=== PATIENT | female | born 1960 | race African-American/Black ===

== ENCOUNTER 2016-11-13 21:14 | Emergency (ER) | payer OTHER ==
[~2016-11-13] VITALS: Ht 160 cm; Wt 90.7 kg
[~2016-11-13 21:14] MED LIST: DEXT30SU19 PO; PRED50TA PO
[2016-11-13 21:46] VITALS: BP 150/80
[2016-11-13] MEDS ORDERED: AMOX500C PO (22:19)
--- NOTE | 2016-11-13 22:19 | PHYS DOC ---
Past Medical History Past Medical History: Arthritis, Asthma, Hypertension Additional Past Medical Histor: bronchitis, pneumonia, tendonitis Past Surgical History: Other Additional Past Surgical Histo: L shoulder surgery Alcohol Use: None Drug Use: None Adult General Chief Complaint Chief Complaint: DENTAL PROBLEM HPI HPI Patient is a 55 year old female presents to the emergency department stating that she's had a 1 day history of left lower dental pain and discomfort. She states that she has been taken hydrocodone 7.5 for her back although this has not helped with the pain and discomfort. She states that she has placed Orajel on the dental pain and discomfort area in which she states that she developed swelling. She has had a low-grade here in the emergency department of 100.1. Patient's heart rate is slightly elevated secondary to elevated temperature. Patient denies any nausea vomiting. She states that she does not have a dentist in which she can follow-up with. Review of Systems Review of Systems Constitutional: Denies fever or chills [] Eyes: Denies change in visual acuity, redness, or eye pain [] HENT: Denies nasal congestion or sore throat. Complaint of left lower dental pain Respiratory: Denies cough or shortness of breath [] Cardiovascular: No additional information not addressed in HPI [] GI: Denies abdominal pain, nausea, vomiting, bloody stools or diarrhea [] : Denies dysuria or hematuria [] Musculoskeletal: Denies back pain or joint pain [] Integument: Denies rash or skin lesions [] Neurologic: Denies headache, focal weakness or sensory changes [] Endocrine: Denies polyuria or polydipsia [] Current Medications Current Medications Current Medications Medications (Trade) Dose Ordered Sig/Rob Start Time Stop Time Status Last Admin Dose Admin Ibuprofen (Motrin) 800 mg 1X ONCE 11/13/16 22:30 11/13/16 22:31 DC 11/13/16 22:15 800 MG Allergies Allergies Allergies Coded Allergies Type Severity Reaction Last Updated Verified cinnamon Allergy Intermediate 07/24/15 Yes shellfish derived Allergy Intermediate 07/24/15 Yes Physical Exam Physical Exam Constitutional: Well developed, well nourished, no acute distress, non-toxic appearance. [] HENT: Normocephalic, atraumatic, bilateral external ears normal, oropharynx moist, no oral exudates, nose normal. Tympanic membranes appear to be normal. Throat appears to be without redness or erythematous no exudate noted. Patient appears to have a fractured tooth that is broken off down to the gumline and # 21. The tooth appears to be very edematous and tender to touch. Patient does have swelling noted into the jawline. Eyes: PERRLA, EOMI, conjunctiva normal, no discharge. [] Neck: Normal range of motion, no tenderness, supple, no stridor. [] Cardiovascular:Heart rate regular rhythm, no murmur [] Lungs & Thorax: Bilateral breath sounds clear to auscultation [] Skin: Warm, dry, no erythema, no rash. [] Back: No tenderness Extremities: No tenderness, no cyanosis, no clubbing, ROM intact, no edema. [] Neurologic: Alert and oriented X 3, normal motor function, normal sensory function, no focal deficits noted. [] Psychologic: Affect normal, judgement normal, mood normal. [] Current Patient Data Vital Signs Vital Signs Date Time Temp Pulse Resp B/P (MAP) Pulse Ox O2 Delivery O2 Flow Rate FiO2 11/13/16 21:46 100.1 132 18 98 Room Air 100.1 EKG EKG [] Radiology/Procedures Radiology/Procedures [] Course & Med Decision Making Course & Med Decision Making Pertinent Labs and Imaging studies reviewed. (See chart for details) Patient was provided with ibuprofen here in the emergency department. Spoke with patient regards to using ibuprofen every 6 hours alternating with her hydrocodone as this has Tylenol in it and it is not advisable to take any extra Tylenol with this medication. Patient was also instructed to use amoxicillin which is an antibiotic to help with pain control and to help with the infection. Patient was also encouraged to follow-up with a dentist she'll be provided with a dental list here in the emergency department. Patient agrees with discharge instructions treatment regimens and follow-up recommendations. Also recommended patient to stop smoking as this is distracted to the teeth as well. Also recommended continue to brush and floss the teeth as normal. Patient will be discharged home with signs and symptoms to return back to the emergency department. Patient agrees with discharge instructions treatment regimens and follow-up recommendations. Patients heart remains 129 after reviewing previous ER records patients HR was noted in the uppers 120's patient will be discharged home in stable condition. [] Dragon Disclaimer Dragon Disclaimer This electronic medical record was generated, in whole or in part, using a voice recognition dictation system. Departure Departure Impression: Primary Impression: Dental infection Disposition: 01 HOME, SELF-CARE Condition: STABLE Referrals: UNKNOWN PCP NAME (PCP) Patient Instructions: Dental Abscess Additional Instructions: Activity as tolerated. Continue to use her hydrocodone that you have for pain and discomfort. Do not take any extra Tylenol with this medication. Ibuprofen may be taken for pain and discomfort as well as fever. You may take this medication every 6 hours as needed. You may take up to 800 mg. Take this medication with food to prevent GI upset. Antibiotics as prescribed please make sure you take the entire dosage as instructed to not stop when she started feeling better. Follow-up with the dentist within the next week. Return back to emergency department for signs and symptoms of become worse. Scripts Amoxicillin (AMOXICILLIN) 500 Mg Capsule 1 CAP PO QID, #40 CAP Prov: DOLORES MANN APRN 11/13/16 DOLORES MANN APRN Nov 13, 2016 22:19
[2016-11-13] MEDS ORDERED: IBUPROFEN 800 MG TABLET. PO ONE (22:30)
== END 2016-11-13 22:35 | disposition home or self-care (01) ==
LOC: ER 21:14
DX: K04.7 Periapical abscess without sinus (principal); J45.909 Unspecified asthma, uncomplicated; I10 Essential (primary) hypertension; Z91.013 Allergy to seafood; Z91.018 Allergy to other foods
CPT/HCPCS: 99282; 99283

== ENCOUNTER 2016-11-28 21:35 | Emergency (ER) | payer OTHER ==
[~2016-11-28 21:35] MED LIST changes: +AMOX500C PO
[2016-11-28 22:50] VITALS: BP 145/90
[2016-11-28] MEDS ORDERED: HYDROcodone/APAP 5/325MG 1 TAB TABLET PO ONE (23:45)
[2016-11-28] MEDS ORDERED: CLIN150C14 PO (23:52)
[2016-11-28] MEDS ORDERED: HYDR-971 PO (23:52)
--- NOTE | 2016-11-28 23:53 | PHYS DOC ---
Past Medical History Past Medical History: Arthritis, Asthma, Hypertension Additional Past Medical Histor: bronchitis, pneumonia, tendonitis Past Surgical History: Other Additional Past Surgical Histo: L shoulder surgery Alcohol Use: None Drug Use: None Adult General Chief Complaint Chief Complaint: DENTAL PROBLEM HPI HPI Patient is a 56 year old female who presents with dental pain. Complains of left mandibular dental pain. Reports facial swelling. Denies fevers/chills, vomiting, drainage. She does not have a dentist. Review of Systems Review of Systems Constitutional: Denies fever or chills HENT:Reports dental pain Respiratory: Denies cough or shortness of breath Cardiovascular: Denies chest pain GI: Denies abdominal pain, nausea, vomiting Neurologic: Denies headache Current Medications Current Medications Current Medications Medications (Trade) Dose Ordered Sig/Rob Start Time Stop Time Status Last Admin Dose Admin Acetaminophen/ Hydrocodone Bitart (Lortab 5/325) 2 tab 1X ONCE 11/28/16 23:45 11/28/16 23:46 DC 11/29/16 00:18 2 TAB Allergies Allergies Allergies Coded Allergies Type Severity Reaction Last Updated Verified cinnamon Allergy Intermediate 07/24/15 Yes shellfish derived Allergy Intermediate 07/24/15 Yes Physical Exam Physical Exam Constitutional: Well developed, well nourished, no acute distress, non-toxic appearance. HENT: Normocephalic, atraumatic, bilateral external ears normal, oropharynx moist, nose normal. left mandibular swelling without trismus. poor dentition throughout, multiple caries, left mandibular premolars cracked with surrounding gingival erythema, no palpable abscess. Eyes: conjunctiva normal, no discharge. Neck: supple, no stridor. Cardiovascular: no edema. Lungs & Thorax: no respiratory distress. Abdomen: nondistended. Skin: Warm, dry, no erythema, no rash. Extremities: No deformity Neurologic: Alert and oriented X 3 Current Patient Data Vital Signs Vital Signs Date Time Temp Pulse Resp B/P (MAP) Pulse Ox O2 Delivery O2 Flow Rate FiO2 11/29/16 00:18 Room Air 11/28/16 22:50 98.6 117 16 98 98.6 EKG EKG [] Radiology/Procedures Radiology/Procedures [] Course & Med Decision Making Course & Med Decision Making Pertinent Labs and Imaging studies reviewed. (See chart for details) The patient presents with dental pain. Recommend rest, ice, ibuprofen TID, gave prescriptions for clindamycin & norco. No drinking alcohol or driving while taking norco. Follow up CANDIDO with a dentist for definitive management, given dental clinic list. Come back for difficulty breathing or swallowing, or otherwise worsening condition. Discharged home in stable condition. [] Dragon Disclaimer Dragon Disclaimer This electronic medical record was generated, in whole or in part, using a voice recognition dictation system. Departure Departure Impression: Primary Impression: Dental infection Disposition: HOME, SELF-CARE Condition: STABLE Referrals: UNKNOWN PCP NAME (PCP) Scripts Clindamycin Hcl (CLINDAMYCIN HCL) 150 Mg Capsule 3 CAP PO TID for 7 Days, #63 CAP Prov: ABDIRAHMAN PANDYA MD 11/28/16 Hydrocodone/Apap 5-325 (NORCO 5-325 TABLET) 1 Each Tablet 1 TAB PO PRN Q6HRS Y for PAIN, #10 TAB 0 Refills Prov: ABDIRAHMAN PANDYA MD 11/28/16 ABDIRAHMAN PANDYA MD Nov 28, 2016 23:52
== END 2016-11-29 00:18 | disposition home or self-care (01) ==
LOC: ER 21:35
DX: K04.7 Periapical abscess without sinus (principal); J45.909 Unspecified asthma, uncomplicated; I10 Essential (primary) hypertension; M19.90 Unspecified osteoarthritis, unspecified site; Z91.013 Allergy to seafood; Z91.018 Allergy to other foods
CPT/HCPCS: 99283

== ENCOUNTER 2016-12-19 11:17 | Emergency (ER) | payer OTHER ==
[~2016-12-19] VITALS: Ht 160 cm; Wt 86.2 kg
[~2016-12-19 11:17] MED LIST changes: +CLIN150C14 PO; +HYDR-971 PO
[2016-12-19 11:20] VITALS: BP 178/96
[2016-12-19] MEDS ORDERED: BACITRACIN TOPICAL OINT 14GM TUBE. TP ONE (11:30)
[2016-12-19] MEDS ORDERED: IBUPROFEN 800 MG TABLET. PO ONE (11:45)
[2016-12-19] MEDS ORDERED: DIPHTH,PERTUSS(ACELL),TET TOX 0.5 ML DISP.SYRIN. VAX IM ONE (11:45)
[2016-12-19] MEDS ORDERED: HYDR-971 PO (12:06)
[2016-12-19] MEDS ORDERED: PROAIR HFA8.5 GM INH (12:06)
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
[2016-12-19] MEDS ORDERED: ALBU1.25 NEB (12:43)
[2016-12-19] MEDS ORDERED: BACI28.34 TP (12:43)
== END 2016-12-19 12:47 | disposition home or self-care (01) ==
LOC: ER 11:17
DX: T21.21XA Burn of second degree of chest wall, initial encounter (principal); T22.10XA Burn of first degree of shoulder and upper limb, except wrist and hand, unspecified site, initial encounter; T31.0 Burns involving less than 10% of body surface; M19.90 Unspecified osteoarthritis, unspecified site; J45.909 Unspecified asthma, uncomplicated; I10 Essential (primary) hypertension; Z87.01 Personal history of pneumonia (recurrent); Z91.013 Allergy to seafood; Z91.018 Allergy to other foods; X12.XXXA Contact with other hot fluids, initial encounter; Y93.89 Activity, other specified; Y92.009 Unspecified place in unspecified non-institutional (private) residence as the place of occurrence of the external cause; Y99.8 Other external cause status
CPT/HCPCS: 16020; 90471; 90715; 99285-25

== ENCOUNTER 2017-01-22 18:52 | Emergency (ER) | payer OTHER ==
[~2017-01-22] VITALS: Ht 160 cm; Wt 86.2 kg
[~2017-01-22 18:52] MED LIST changes: +ALBU1.25 NEB; +BACI28.34 TP; +PROAIR HFA8.5 GM INH
[2017-01-22 19:47] VITALS: BP 181/95
[2017-01-22] MEDS ORDERED: IPRATRPIUM/ALBUTEROL 0.5/2.5MG 3 ML NEBU. NEB ONE (20:00)
[2017-01-22] MEDS ORDERED: PENICILLIN V K 250 MG TABLET. PO STA (20:06)
[2017-01-22] MEDS ORDERED: HYDROcodone/APAP 5/325MG 1 TAB TABLET PO ONE (20:15)
--- NOTE | 2017-01-22 21:11 | PHYS DOC ---
Past Medical History Past Medical History: Arthritis, Asthma, Bronchitis, COPD, Hypertension, Pneumonia Additional Past Medical Histor: tendonitis Past Surgical History: Other Additional Past Surgical Histo: L shoulder surgery Alcohol Use: None Drug Use: None Adult General Chief Complaint Chief Complaint: DENTAL PROBLEM HPI HPI Patient is a 56 year old female who presents with complaint of left-sided jaw pain and swelling. Patient states that she has had worsening symptoms over the past 2-3 days. Patient states that she has had history of dental caries and previous dental abscess. Patient has had 2 teeth removed from the left side of her jaw on states that she has an additional tooth that has been causing her problems. Patient has had subjective fevers at home. Patient also states that she has history of COPD and states that her symptoms have been worsening over the past 2 days. Patient states that she took a breathing treatment before work today but has had no breathing treatments over the past 4-6 hours. Patient states that her primary concern is her tooth. Patient rates her pain as 7 out of 10. Patient states that her pain worsens with movement. Patient states that she has another appointment this month with her dentist but states that it is an approximately one week and she is unable to wait that long. Review of Systems Review of Systems Constitutional: Denies fever or chills [] Eyes: Denies change in visual acuity, redness, or eye pain [] HENT: Dental pain, denies nasal congestion or sore throat [] Respiratory: Cough, shortness of breath[] Cardiovascular: Denies chest pain or edema[] GI: Denies abdominal pain, nausea, vomiting, bloody stools or diarrhea [] : Denies dysuria or hematuria [] Musculoskeletal: Denies back pain or joint pain [] Integument: Denies rash or skin lesions [] Neurologic: Denies headache, focal weakness or sensory changes [] Current Medications Current Medications Current Medications Medications (Trade) Dose Ordered Sig/Rob Start Time Stop Time Status Last Admin Dose Admin Acetaminophen/ Hydrocodone Bitart (Lortab 5/325) 1 tab 1X ONCE 01/22/17 20:15 01/22/17 20:16 DC 01/22/17 20:50 1 TAB Albuterol/ Ipratropium (Duoneb) 3 ml 1X ONCE 01/22/17 20:00 01/22/17 20:01 DC 01/22/17 20:25 3 ML Clindamycin HCl (Cleocin) 450 mg 1X ONCE 01/22/17 21:15 01/22/17 21:16 DC 01/22/17 21:06 450 MG Penicillin V Potassium (Veetid) 500 mg 1X STAT 01/22/17 20:06 01/22/17 20:55 DC Allergies Allergies Allergies Coded Allergies Type Severity Reaction Last Updated Verified cinnamon Allergy Intermediate 07/24/15 Yes shellfish derived Allergy Intermediate 07/24/15 Yes Penicillins Adverse Reaction Severe Swelling 01/22/17 Yes Physical Exam Physical Exam Constitutional: Alert, afebrile, appears in mild to moderate discomfort. [] HENT: Normocephalic, atraumatic, bilateral external ears normal, oropharynx moist, mild soft tissue swelling along left mandible, tenderness to palpation over tooth #18, no gingival fluctuance, no oral exudates, nose normal. [] Eyes: PERRLA, EOMI, conjunctiva normal, no discharge. [] Neck: Normal range of motion, no tenderness, supple, no stridor. [] Cardiovascular:Heart rate regular rhythm, no murmur [] Lungs & Thorax: Mild to moderate shortness of air movement bilaterally, expiratory wheezes bilaterally, no rales[] Abdomen: Bowel sounds normal, soft, no tenderness, no masses, no pulsatile masses. [] Skin: Warm, dry, no erythema, no rash. [] Back: No tenderness, no CVA tenderness. [] Extremities: No tenderness, no cyanosis, no clubbing, ROM intact, no edema. [] Neurologic: Alert and oriented X 3, normal motor function, normal sensory function, no focal deficits noted. [] Current Patient Data Vital Signs Vital Signs Date Time Temp Pulse Resp B/P (MAP) Pulse Ox O2 Delivery O2 Flow Rate FiO2 01/22/17 20:50 28 98 01/22/17 20:28 Room Air 01/22/17 19:47 96 181/95 (123) 01/22/17 19:45 98.2 98.2 EKG EKG Interpreted by me: Heart rate 94, sinus rhythm, normal intervals, normal axis, no acute ST/T-wave abnormalities present[] Radiology/Procedures Radiology/Procedures Not performed[] Course & Med Decision Making Course & Med Decision Making Pertinent Labs and Imaging studies reviewed. (See chart for details) Patient was given a DuoNeb treatment for asthma symptoms and was also given clindamycin and [place] in the emergency department for treatment of suspected apical abscess. On reevaluation, patient states that she feels much better at this time. Patient was noted to have elevated blood pressure in the emergency department of 180 systolic. The patient states that she had been taking half dosing of her blood pressure medication at home but did take a full dose earlier today. The patient denies any vision changes, headache, chest pain, or other symptoms associated with elevated blood pressure. The patient states that she will continue to take full dosing at home. The patient agreed to follow-up with her primary doctor in 2 days for reevaluation. Patient also states she has an appointment with a dentist on January 31 of this month. Patient will be sent home with prescriptions for Medrol Dosepak, clindamycin, [place], and albuterol. Advised return emergency department for any worsening symptoms. Patient was understanding and in agreement with treatment plan. Dragon Disclaimer Dragon Disclaimer This electronic medical record was generated, in whole or in part, using a voice recognition dictation system. Departure Departure Impression: Primary Impression: Dental infection Additional Impressions: Accelerated hypertension Asthma exacerbation Disposition: HOME, SELF-CARE Condition: IMPROVED Referrals: UNKNOWN PCP NAME (PCP) Patient Instructions: Asthma, Adult, Dental Pain, Hypertension Additional Instructions: Follow-up with your primary doctor in the next 2-3 days for reevaluation. Follow -up on January 31, 2017 with your dentist as previously scheduled. Return to emergency department for any worsening symptoms. Scripts Albuterol Sulfate (VENTOLIN HFA INHALER) 18 Gm Hfa.aer.ad 2-4 PUFF INH Q4HRS Y for WHEEZING, #1 INHALER 0 Refills Prov: PETAR CEBALLOS MD 01/22/17 Clindamycin Hcl (CLINDAMYCIN HCL) 150 Mg Capsule 3 CAP PO TID, #90 CAP Prov: PETAR CEBALLOS MD 01/22/17 Hydrocodone/Apap 5-325 (NORCO 5-325 TABLET) 1 Each Tablet 1-2 TAB PO Q4-6HRS Y for PAIN, #20 TAB Prov: PETAR CEBALLOS MD 01/22/17 Methylprednisolone (MEDROL) 4 Mg Tab.ds.pk 1 PKG PO UD, #1 PKG Prov: PETAR CEBALLOS MD 9/16/17 Problem Qualifiers PETAR CEBALLOS MD Jan 22, 2017 21:11
[2017-01-22] MEDS ORDERED: CLINDAMYCIN HCL 150 MG CAPSULE. PO ONE (21:15)
[2017-01-22] MEDS ORDERED: HYDR-971 PO (21:57)
[2017-01-22] MEDS ORDERED: METH4TAB2 PO (21:57)
[2017-01-22] MEDS ORDERED: CLIN150C14 PO (21:57)
[2017-01-22] MEDS ORDERED: VENTOLIN HFA18 GM INH (21:57)
--- NOTE | 2017-01-23 07:16 | EKG ---
[facility] [address] [place] [address] Test Date: 2017-01-22 Test Time: 19:48:24 Pat Name: ROSA ADAME Department: Room: Gender: F It Associate: : 1960 Requested By: PETAR CEBALLOS Order Number: [id number] Reading MD: Salvador Charles Measurements Intervals [place] Rate: 94 P: 51 SD: 154 QRS: -3 QRSD: 72 T: 62 QT: 346 QTc: 438 Interpretive Statements SINUS RHYTHM Electronically Signed On 01-24-2017 13:15:32 CDT by Salvador Charles
[2017-01-23] MEDS ORDERED: ONDA4TAB10 SL (23:18)
== END 2017-01-22 22:08 | disposition home or self-care (01) ==
LOC: ER 18:52
DX: K04.7 Periapical abscess without sinus (principal); I10 Essential (primary) hypertension; J45.901 Unspecified asthma with (acute) exacerbation; J44.9 Chronic obstructive pulmonary disease, unspecified; M19.90 Unspecified osteoarthritis, unspecified site; Z91.013 Allergy to seafood; Z91.018 Allergy to other foods; Z88.0 Allergy status to penicillin
CPT/HCPCS: 93005; 94250; 94640; 99283; J7620

== ENCOUNTER 2017-01-23 22:56 | Emergency (ER) | payer OTHER ==
[~2017-01-23] VITALS: Ht 157.5 cm; Wt 86.2 kg
[~2017-01-23 22:56] MED LIST changes: +METH4TAB2 PO; +VENTOLIN HFA18 GM INH
[2017-01-23 23:14] VITALS: BP 165/103
[2017-01-23] MEDS ORDERED: ONDA4TAB10 SL (23:18)
--- NOTE | 2017-01-23 23:18 | PHYS DOC ---
Past Medical History Past Medical History: Arthritis, Asthma, Bronchitis, COPD, Hypertension, Pneumonia Additional Past Medical Histor: tendonitis Past Surgical History: Other Additional Past Surgical Histo: L shoulder surgery Alcohol Use: None Drug Use: None Adult General Chief Complaint Chief Complaint: NAUSEA/VOMITING/DIARRHA HPI HPI Patient is a 56 year old female who presents with nausea and vomiting after taking her antibiotic. She was just here on Tuesday which she was treated for a left dental abscess. She was given clindamycin and a Medrol Dosepak. The infection has improved dramatically per the patient. She's had markedly reduced swelling on the left side of her face. She is able swallow well. No drooling. No fever. Review of Systems Review of Systems Constitutional: Denies fever or chills Eyes: Denies change in visual acuity, redness, or eye pain HENT: Denies nasal congestion or sore throat; improvement in facial swelling and dental pain. GI: Denies abdominal pain, POS nausea, vomiting, NO bloody stools or diarrhea Current Medications Current Medications Current Medications Medications (Trade) Dose Ordered Sig/Rob Start Time Stop Time Status Last Admin Dose Admin Ceftriaxone Sodium (Rocephin Im) 1 gm 1X ONCE 01/23/17 23:45 01/23/17 23:46 DC 01/23/17 23:39 1 GM Ondansetron HCl (Zofran Odt) 4 mg 1X ONCE 01/23/17 23:45 01/23/17 23:46 DC 01/23/17 23:39 4 MG Allergies Allergies Allergies Coded Allergies Type Severity Reaction Last Updated Verified cinnamon Allergy Intermediate 07/24/15 Yes shellfish derived Allergy Intermediate 07/24/15 Yes Penicillins Adverse Reaction Severe Swelling 01/22/17 Yes Physical Exam Physical Exam Constitutional: Well developed, well nourished, no acute distress, non-toxic appearance. HENT: Normocephalic, atraumatic, bilateral external ears normal, oropharynx moist, no oral exudates, nose normal. Minimal left buccal swelling; no abscess palpable. Eyes: PERRLA, EOMI, conjunctiva normal, no discharge. Neck: Normal range of motion, no tenderness, supple, no stridor. Cardiovascular:Heart rate regular rhythm, no murmur Lungs & Thorax: Bilateral breath sounds clear to auscultation Abdomen: Bowel sounds normal, soft, no tenderness, no masses, no pulsatile masses. Skin: Warm, dry, no erythema, no rash. Neurologic: Alert and oriented X 3, normal motor function, normal sensory function, no focal deficits noted. Current Patient Data Vital Signs Vital Signs Date Time Temp Pulse Resp B/P (MAP) Pulse Ox O2 Delivery O2 Flow Rate FiO2 01/23/17 23:14 98.1 110 18 165/103 (123) 97 Room Air 98.1 Lab Values Laboratory Tests Test 01/23/17 23:08 POC Urine HCG, Qualitative Hcg negative (Negative) Course & Med Decision Making Course & Med Decision Making Patient is improving on a clindamycin so I do not wish to stop that. Gave her Zofran here and and IM Rocephin. If she has persistent vomiting I informed her then she will need to be reevaluated to determine if the antibiotic needs to be changed. I did write her for Zofran ODT tablets to use prior to taking her clindamycin however. I have spoken with the patient and/or caregivers. I have explained the patient' s condition, diagnosis and treatment plan based on the information available to me at this time. I have answered the patient's and/or caregiver's questions and addressed any concerns. The patient and/or caregivers have as good an understanding of the patient's diagnosis, condition and treatment plan as can be expected at this point. The patient's condition is stable and appropriate for discharge from the emergency department. The patient will pursue further outpatient evaluation with the primary care physician or other designated or consulting physician as outlined in the discharge instructions. The patient and/or caregivers are agreeable to this plan of care and follow-up instructions have been explained in detail. The patient and/or caregivers have received these instructions in written format and have expressed an understanding of the discharge instructions. The patient and/or caregivers are aware that any significant change in condition or worsening of symptoms should prompt an immediate return to this or the closest emergency department or a call to 911. Dennis Disclaimer Jameson Disclaimer This electronic medical record was generated, in whole or in part, using a voice recognition dictation system. Departure Departure Impression: Primary Impression: Adverse effects of medication Additional Impression: Nausea & vomiting Disposition: 01 HOME, SELF-CARE Condition: STABLE Referrals: UNKNOWN PCP NAME (PCP) Additional Instructions: THE NAUSEA AND VOMITING CAN OCCUR FROM THE ANTIBIOTIC. HOWEVER YOU ARE IMPROVING DRAMATICALLY ON THAT ANTIBIOTIC AND NEED TO KEEP TAKING IT. WE GAVE YOU A SHOT TONIGHT SO DO NOT TAKE THE ANTIBIOTIC PILL TONIGHT. YOU WERE GIVEN NAUSEA MEDICATION AND YOU NEED TO TAKE THE NAUSEA MEDICATION PRIOR TO THE ANTIBIOTIC Scripts Ondansetron (ZOFRAN ODT) 4 Mg Tab.rapdis 1 TAB SL Q8HRS, #15 TAB Prov: CHUCK FRANZ MD 01/23/17 Problem Qualifiers Primary Impression: Adverse effects of medication Encounter type: initial encounter Qualified Codes: T88.7XXA - Unspecified adverse effect of drug or medicament, initial encounter Additional Impression: Nausea & vomiting Vomiting type: unspecified Vomiting Intractability: non-intractable Qualified Codes: R11.2 - Nausea with vomiting, unspecified CHUCK FRANZ MD Jan 23, 2017 23:18
[2017-01-23] MEDS ORDERED: cefTRIAXone IM 1 GM VIAL IM ONE (23:45)
[2017-01-23] MEDS ORDERED: ONDANSETRON ODT 4 MG TAB.RAPDIS. PO ONE (23:45)
== END 2017-01-24 00:14 | disposition home or self-care (01) ==
LOC: ER 22:56
DX: R11.2 Nausea with vomiting, unspecified (principal); T36.8X5A Adverse effect of other systemic antibiotics, initial encounter; J44.9 Chronic obstructive pulmonary disease, unspecified; I10 Essential (primary) hypertension; Z88.0 Allergy status to penicillin; Z91.013 Allergy to seafood; Z91.018 Allergy to other foods; Y92.89 Other specified places as the place of occurrence of the external cause
CPT/HCPCS: 81025; 96372; 99283; J0696; Q0162

== ENCOUNTER 2017-02-23 04:59 | Emergency (ER) | payer OTHER ==
[~2017-02-23] VITALS: Ht 160 cm; Wt 90.7 kg
[~2017-02-23 04:59] MED LIST changes: +ONDA4TAB10 SL
[2017-02-23 05:08] VITALS: BP 174/84
--- NOTE | 2017-02-23 05:20 | PHYS DOC ---
Past Medical History Past Medical History: Arthritis, Asthma, Bronchitis, COPD, Hypertension, Pneumonia Additional Past Medical Histor: tendonitis Past Surgical History: Other Additional Past Surgical Histo: L shoulder surgery Alcohol Use: None Drug Use: None Adult General Chief Complaint Chief Complaint: Congestion HPI HPI Patient is a 56 year old F who presents with cough and wheezing. Patient denies history of smoking is having worsening shortness of breath and a cough that is persistent. Patient is a breathing treatment home with not much relief. Patient denies any fevers. Patient denies any chest pain. Patient has no other complaints. Review of Systems Review of Systems GEN: Denies fevers, chills, sweats HEENT: Denies blurred vision, sore throat CV: Denies chest pain RESP: Cough GI: Denies n/v/d NEURO: Denies confusion, dizziness MSK: Denies weakness, joint pain/swelling Current Medications Current Medications Current Medications Medications (Trade) Dose Ordered Sig/Rob Start Time Stop Time Status Last Admin Dose Admin Albuterol/ Ipratropium (Duoneb) 3 ml 1X ONCE 02/23/17 06:00 02/23/17 06:01 DC 02/23/17 05:35 3 ML Dexamethasone Sodium Phosphate (Decadron) 10 mg 1X ONCE 02/23/17 06:00 02/23/17 06:01 DC 02/23/17 05:37 10 MG Promethazine HCl/ Codeine (Phenergan With Codeine) 5 ml 1X ONCE 02/23/17 06:00 02/23/17 06:01 DC 02/23/17 05:37 5 ML Allergies Allergies Allergies Coded Allergies Type Severity Reaction Last Updated Verified cinnamon Allergy Intermediate 07/24/15 Yes shellfish derived Allergy Intermediate 07/24/15 Yes Penicillins Adverse Reaction Severe Swelling 01/22/17 Yes Physical Exam Physical Exam GEN.: No apparent distress. Alert and oriented. HEENT: Head is normocephalic, atraumatic NECK: Supple. LUNGS: Slight wheezing bilaterally HEART: RRR, S1, S2 present. Peripheral pulses intact ABDOMEN: Soft, nontender. Positive bowel sounds. EXTREMITIES: Without any cyanosis. NEUROLOGIC: Normal speech, normal tone PSYCHIATRIC: Normal affect, normal mood. SKIN: No ulcerations Current Patient Data Vital Signs Vital Signs Date Time Temp Pulse Resp B/P (MAP) Pulse Ox O2 Delivery O2 Flow Rate FiO2 02/23/17 05:35 97 Room Air 02/23/17 05:08 98.9 113 23 174/84 (114) 98.9 EKG EKG [] Radiology/Procedures Radiology/Procedures Chest x-ray NAD[] Course & Med Decision Making Course & Med Decision Making Pertinent Labs and Imaging studies reviewed. (See chart for details) ED course: Patient was seen and examined emergency room breathing treatment, 10 mg Decadron IM, and chest x-ray were ordered 0605: On reevaluation patient is doing much better and be a lot better. Patient is ready to go home. MDM: After reviewing the chart, CC/HPI/PMH, physical exam [radiological results], I do not believe the patient has severe respiratory infection warranting further workup and/or admission at this time. Patient having a COPD exacerbation and recommended patient to stop smoking and will treat with a Z-Julio Cesar, prednisone for possible atypical pneumonia. Additional verbal discharge instructions were provided to the patient and that if symptoms get worse or any new symptoms arise that are worrisome to the patient [he/she] is to return to the emergency room immediately [] Dragon Disclaimer Dragon Disclaimer This electronic medical record was generated, in whole or in part, using a voice recognition dictation system. Departure Departure Impression: Primary Impression: COPD exacerbation Disposition: HOME, SELF-CARE Condition: IMPROVED Referrals: NO PCP (PCP) Patient Instructions: Chronic Obstructive Pulmonary Disease Additional Instructions: Please follow-up with your family physician next one to 2 days and return if symptoms increase Scripts Albuterol Sulfate (Proair Hfa) 8.5 Gm Hfa.aer.ad 8.5 GM IH Q4-6HRS Y for WHEEZING for 30 Days, #1 INHALER Prov: SONYA SHETH DO 02/23/17 Prednisone (PREDNISONE) 50 Mg Tablet 1 TAB PO DAILY, #5 TAB Prov: SONYA SHETH DO 02/23/17 Azithromycin (ZITHROMAX) 250 Mg Tablet 1 PKG PO UD, #6 TAB Prov: SONYA SHETH DO 02/23/17 SONYA SHETH DO Feb 23, 2017 05:20
[2017-02-23] MEDS ORDERED: PRED50TA PO (05:41)
[2017-02-23] MEDS ORDERED: AZIT250T PO (05:41)
[2017-02-23] MEDS ORDERED: DEXAMETHASONE SOD PHOS 4 MG/ML VIAL IM ONE (06:00)
[2017-02-23] MEDS ORDERED: PROMETH/CODEINE 6.25/10MG 5 ML SYRUP. PO ONE (06:00)
[2017-02-23] MEDS ORDERED: IPRATRPIUM/ALBUTEROL 0.5/2.5MG 3 ML NEBU. NEB ONE (06:00)
[2017-02-23] MEDS ORDERED: ALBU8.5H8 IH (06:13)
--- NOTE | 2017-02-23 07:41 | RAD ---
EXAM: Chest 2 views. HISTORY: Cough. COMPARISON: 07/24/2015. FINDINGS: Frontal and lateral views of the chest are obtained. There are no confluent infiltrates. There is no pneumothorax or pleural effusion. The heart is not enlarged. There are atherosclerotic calcifications of the aorta. There is a chronic fracture of the right 6th lateral rib. IMPRESSION: 1. No confluent infiltrates.
== END 2017-02-23 06:30 | disposition home or self-care (01) ==
LOC: ER 04:59
DX: J44.1 Chronic obstructive pulmonary disease with (acute) exacerbation (principal); I10 Essential (primary) hypertension; Z88.0 Allergy status to penicillin; Z91.013 Allergy to seafood; Z91.018 Allergy to other foods
CPT/HCPCS: 71020; 94640; 96372; 99284; J1100; J7620

== ENCOUNTER 2017-05-07 01:25 | Emergency (ER) | payer OTHER ==
[2017-05-07] MEDS: IPRATRPIUM/ALBUTEROL 0.5/2.5MG 3 ML NEBU. NEB ×2 (02:06→03:12)
[2017-05-07 02:47] LABS: ADD MAN DIFF? NO
[2017-05-07 02:56] LABS: BASO # 0.1 x10^3/uL (0.0-0.2); BASO % 1 % (0-3); EOS % 7 % (0-3); HEMOGLOBIN 13.5 g/dL (12.0-15.5); LYMPH # 4.8 x10^3/uL (1.0-4.8); LYMPH % 39 % (24-48); MEAN CORPUSCULAR HEMOGLOBIN 32 pg (25-35); MEAN CORPUSCULAR HGB CONC 34 g/dL (31-37); MEAN CORPUSCULAR VOLUME 94 fL (79-100); MONO % 8 % (0-9); NEUT % 45 % (31-73); PLATELET COUNT 416 x10^3/uL (140-400); RED BLOOD COUNT 4.24 x10^6/uL (3.50-5.40); RED CELL DISTRIBUTION WIDTH 13.3 % (11.5-14.5); WHITE BLOOD COUNT 12.4 x10^3/uL (4.0-11.0)
[2017-05-07 03:12] LABS: ANION GAP 9 (6-14); BLOOD UREA NITROGEN 9 mg/dL (7-20); CALCIUM 8.9 mg/dL (8.5-10.1); CARBON DIOXIDE 31 mmol/L (21-32); CHLORIDE 103 mmol/L (98-107); CREATININE 0.8 mg/dL (0.6-1.0); GFR 89.1; GLUCOSE 85 mg/dL (70-99); POTASSIUM 3.4 mmol/L (3.5-5.1); SODIUM 143 mmol/L (136-145)
[2017-05-07 03:19] LABS: ALBUMIN 3.2 g/dL (3.4-5.0); ALK PHOS 87 U/L (46-116); ALT (SGPT) 18 U/L (14-59); AST (SGOT) 16 U/L (15-37); DIRECT BILIRUBIN 0.1 mg/dL (0.0-0.2); TOTAL BILIRUBIN 0.2 mg/dL (0.2-1.0); TOTAL PROTEIN 6.7 g/dL (6.4-8.2)
[2017-05-07] MEDS: methylPREDNISolone SOD SUCC PF 125 MG/2 ML VIAL. IV (03:19)
[2017-05-07 03:27] LABS: NT-PRO BNP 97 pg/mL (0-124)
[2017-05-07 03:31] LABS: TROPONINI < 0.017 ng/mL (0.000-0.055)
== END 2017-05-07 03:53 | disposition home or self-care (01) ==
LOC: ANTICOAG 01:25
DX: J44.1 Chronic obstructive pulmonary disease with (acute) exacerbation (principal); M19.90 Unspecified osteoarthritis, unspecified site; I10 Essential (primary) hypertension; Z88.0 Allergy status to penicillin; Z87.01 Personal history of pneumonia (recurrent); Z91.013 Allergy to seafood; Z91.018 Allergy to other foods
CPT/HCPCS: 36415; 71010; 80048; 80076; 83690; 83880; 84484; 85025; 93005; 94640; 96374; 99285-25; J2930; J7620

== ENCOUNTER 2017-06-17 08:07 | Emergency (ER) | payer OTHER ==
[2017-06-17] MEDS: IV NORMAL SALINE 1000ML BAG 1,000 ML IV ×2 (09:04)
[2017-06-17 09:10] LABS: ADD MAN DIFF? NO
[2017-06-17] MEDS: ALBUTEROL SULFATE 2.5 MG/3 ML NEBU. CONT NEB ×2 (09:10)
[2017-06-17 09:16] LABS: BASO # 0.1 x10^3/uL (0.0-0.2); BASO % 1 % (0-3); EOS % 11 % (0-3); HEMOGLOBIN 13.5 g/dL (12.0-15.5); LYMPH # 1.7 x10^3/uL (1.0-4.8); LYMPH % 19 % (24-48); MEAN CORPUSCULAR HEMOGLOBIN 32 pg (25-35); MEAN CORPUSCULAR HGB CONC 35 g/dL (31-37); MEAN CORPUSCULAR VOLUME 94 fL (79-100); MONO # 0.7 x10^3/uL (0.0-1.1); MONO % 8 % (0-9); NEUT # 5.5 x10^3uL (1.8-7.7); NEUT % 61 % (31-73); PLATELET COUNT 395 x10^3/uL (140-400); RED BLOOD COUNT 4.17 x10^6/uL (3.50-5.40); RED CELL DISTRIBUTION WIDTH 13.1 % (11.5-14.5)
[2017-06-17 09:37] LABS: ANION GAP 7 (6-14); BLOOD UREA NITROGEN 9 mg/dL (7-20); BUN/CREATININE RATIO 11 (6-20); CALCIUM 9.4 mg/dL (8.5-10.1); CARBON DIOXIDE 31 mmol/L (21-32); CHLORIDE 100 mmol/L (98-107); CREATININE 0.8 mg/dL (0.6-1.0); GFR 89.1; GLUCOSE 200 mg/dL (70-99); POTASSIUM 3.6 mmol/L (3.5-5.1); SODIUM 138 mmol/L (136-145)
[2017-06-17 09:43] LABS: ALBUMIN 3.2 g/dL (3.4-5.0); ALBUMIN/GLOBULIN RATIO 0.8 (1.0-1.7); ALK PHOS 80 U/L (46-116); ALT (SGPT) 18 U/L (14-59); AST (SGOT) 17 U/L (15-37); TOTAL BILIRUBIN 0.3 mg/dL (0.2-1.0); TOTAL PROTEIN 7.4 g/dL (6.4-8.2)
== END 2017-06-17 12:36 | disposition home or self-care (01) ==
LOC: ER 08:07
DX: J40 Bronchitis, not specified as acute or chronic (principal); J44.9 Chronic obstructive pulmonary disease, unspecified; I10 Essential (primary) hypertension; Z88.0 Allergy status to penicillin; Z91.013 Allergy to seafood; Z91.018 Allergy to other foods
CPT/HCPCS: 36415; 71046; 80053; 85025; 94644; 96360; 96361; 99285-25; J7030; J7613

== ENCOUNTER 2017-06-27 12:16 | Emergency (ER) | payer OTHER ==
[2017-06-27 12:58] LABS: ADD MAN DIFF? NO
[2017-06-27 13:01] LABS: BASO # 0.1 x10^3/uL (0.0-0.2); BASO % 1 % (0-3); EOS % 16 % (0-3); HEMATOCRIT 38.2 % (36.0-47.0); HEMOGLOBIN 13.4 g/dL (12.0-15.5); LYMPH # 2.6 x10^3/uL (1.0-4.8); LYMPH % 21 % (24-48); MEAN CORPUSCULAR HEMOGLOBIN 33 pg (25-35); MEAN CORPUSCULAR HGB CONC 35 g/dL (31-37); MEAN CORPUSCULAR VOLUME 93 fL (79-100); MONO # 0.8 x10^3/uL (0.0-1.1); MONO % 6 % (0-9); NEUT # 6.7 x10^3uL (1.8-7.7); NEUT % 55 % (31-73); PLATELET COUNT 417 x10^3/uL (140-400); RED BLOOD COUNT 4.12 x10^6/uL (3.50-5.40); RED CELL DISTRIBUTION WIDTH 13.9 % (11.5-14.5); WHITE BLOOD COUNT 12.2 x10^3/uL (4.0-11.0)
[2017-06-27] MEDS: DEXAMETHASONE SOD PHOS 4 MG/ML VIAL IV ×2 (13:08)
[2017-06-27] MEDS: IV NORMAL SALINE 1000ML BAG 1,000 ML IV ×2 (13:08)
[2017-06-27] MEDS: IPRATRPIUM/ALBUTEROL 0.5/2.5MG 3 ML NEBU. NEB ×2 (13:57)
[2017-06-27 14:17] LABS: ANION GAP 3 (6-14); BLOOD UREA NITROGEN 12 mg/dL (7-20); CALCIUM 9.3 mg/dL (8.5-10.1); CARBON DIOXIDE 36 mmol/L (21-32); CHLORIDE 103 mmol/L (98-107); CREATININE 0.7 mg/dL (0.6-1.0); GLUCOSE 81 mg/dL (70-99); POTASSIUM 3.7 mmol/L (3.5-5.1); SODIUM 142 mmol/L (136-145)
[2017-06-27 14:27] LABS: TROPONINI < 0.017 ng/mL (0.000-0.055)
== END 2017-06-27 15:07 | disposition home or self-care (01) ==
LOC: ER 12:16
DX: J45.901 Unspecified asthma with (acute) exacerbation (principal); I10 Essential (primary) hypertension; Z88.0 Allergy status to penicillin; J44.9 Chronic obstructive pulmonary disease, unspecified; Z87.891 Personal history of nicotine dependence; Z91.013 Allergy to seafood; Z91.018 Allergy to other foods
CPT/HCPCS: 36415; 71046; 80048; 84484; 85025; 93005; 94640; 96361; 96374; 99285-25; J1100; J7030; J7620

== ENCOUNTER 2017-07-06 17:55 | Emergency (ER) | payer OTHER ==
[2017-07-06] MEDS: predniSONE 10 MG TABLET PO (18:58)
[2017-07-06] MEDS: ALBUTEROL SULFATE 2.5 MG/3 ML NEBU. CONT NEB (19:05)
== END 2017-07-06 20:22 | disposition home or self-care (01) ==
LOC: ER 17:55
DX: J44.9 Chronic obstructive pulmonary disease, unspecified (principal); I10 Essential (primary) hypertension; Z88.0 Allergy status to penicillin; Z91.013 Allergy to seafood; Z91.018 Allergy to other foods
CPT/HCPCS: 71046; 94644; 99285-25; J7512; J7613

== ENCOUNTER → 2017-07-12 | Outpatient (CLI) | payer OTHER | END | disposition home or self-care (01) | LOC: SLPLAB 16:44 | DX: G47.33 Obstructive sleep apnea (adult) (pediatric) (principal) | CPT/HCPCS: 95810 ==

== ENCOUNTER 2017-08-14 09:54 | Emergency (ER) | payer OTHER ==
[2017-08-14] MEDS: IBUPROFEN 800 MG TABLET. PO (11:04)
== END 2017-08-14 11:06 | disposition home or self-care (01) ==
LOC: ER 09:54
DX: K04.7 Periapical abscess without sinus (principal); J44.9 Chronic obstructive pulmonary disease, unspecified; I10 Essential (primary) hypertension; Z88.0 Allergy status to penicillin; Z91.013 Allergy to seafood; Z91.018 Allergy to other foods
CPT/HCPCS: 99283

== ENCOUNTER 2017-08-22 08:01 | Emergency (ER) | payer OTHER | END 2017-08-22 08:20 | disposition home or self-care (01) | LOC: ER 08:01 | DX: K05.6 Periodontal disease, unspecified (principal); K04.7 Periapical abscess without sinus; K02.9 Dental caries, unspecified; I10 Essential (primary) hypertension; F17.200 Nicotine dependence, unspecified, uncomplicated; J43.9 Emphysema, unspecified; G89.29 Other chronic pain; Z88.0 Allergy status to penicillin; Z91.013 Allergy to seafood; Z91.02 Food additives allergy status | CPT/HCPCS: 99283 ==

== ENCOUNTER → 2017-08-30 | Outpatient (CLI) | payer OTHER | END | disposition home or self-care (01) | LOC: RT 17:42 | DX: G47.33 Obstructive sleep apnea (adult) (pediatric) (principal); I10 Essential (primary) hypertension | CPT/HCPCS: 95810 ==

== ENCOUNTER 2017-10-16 22:25 | Emergency (ER) | payer OTHER | END 2017-10-16 23:42 | disposition home or self-care (01) | LOC: ER 23:42 | DX: S60.222A Contusion of left hand, initial encounter (principal); I10 Essential (primary) hypertension; J44.9 Chronic obstructive pulmonary disease, unspecified; Z88.0 Allergy status to penicillin; Z91.013 Allergy to seafood; Z91.018 Allergy to other foods; W22.8XXA Striking against or struck by other objects, initial encounter; Y93.89 Activity, other specified; Y99.8 Other external cause status; Y92.89 Other specified places as the place of occurrence of the external cause | CPT/HCPCS: 73130; 99284 ==

== ENCOUNTER 2017-10-27 11:54 | Emergency (ER) | payer OTHER | END 2017-10-27 12:28 | disposition home or self-care (01) | LOC: ER 11:54 | DX: J45.901 Unspecified asthma with (acute) exacerbation (principal); J44.9 Chronic obstructive pulmonary disease, unspecified; I10 Essential (primary) hypertension; F17.210 Nicotine dependence, cigarettes, uncomplicated; Z88.0 Allergy status to penicillin; Z91.013 Allergy to seafood; Z91.018 Allergy to other foods | CPT/HCPCS: 99283 ==

== ENCOUNTER 2017-11-10 12:05 | Emergency (ER) | payer OTHER ==
[2017-11-10] MEDS: ALBUTEROL SULFATE 2.5 MG/3 ML NEBU. CONT NEB (12:51)
[2017-11-10] MEDS: predniSONE 20 MG TABLET PO (13:09)
== END 2017-11-10 14:22 | disposition home or self-care (01) ==
LOC: ER 14:22
DX: J45.901 Unspecified asthma with (acute) exacerbation (principal); J44.9 Chronic obstructive pulmonary disease, unspecified; I10 Essential (primary) hypertension; Z88.0 Allergy status to penicillin; Z91.013 Allergy to seafood; Z91.018 Allergy to other foods
CPT/HCPCS: 94640; 94644; 99285-25; J7512; J7613

== ENCOUNTER 2017-12-16 07:18 | Emergency (ER) | payer OTHER ==
[~2017-12-16] VITALS: Ht 160 cm; Wt 90.7 kg
[~2017-12-16 07:18] MED LIST changes: +ALBU2.5V14 NEB; +ALBU2.5V5 NEB; +ALBU8.5H8 IH; +AMOX1TAB11 PO; +AZIT250T PO; +AZIT250T6 PO; +BENZ200C47 PO; +CEPH-263 PO; +CHLO15MO2 PO; +CLIN300C8 PO; +CYCL10TA2 PO; +DICL50TA4 PO; +GABA-587 PO; +HYDR5SUS PO; +IPRA3AMP29 NEB; +LOSA1TAB25 PO; +PRED-220 PO; +PRED20TA PO; +PROM118S5 PO
[2017-12-16 07:26] VITALS: BP 148/72
[2017-12-16] MEDS ORDERED: HYDR115S2 PO (07:51)
[2017-12-16] MEDS ORDERED: AZIT250T PO (07:51)
[2017-12-16] MEDS ORDERED: METH4TAB2 PO (07:51)
--- NOTE | 2017-12-16 07:51 | PHYS DOC ---
Past Medical History Past Medical History: Asthma, Bronchitis, COPD, Hypertension Additional Past Medical Histor: tendonitis, emphysema Past Surgical History: Other Additional Past Surgical Histo: LEFT ROTATOR CUFF Alcohol Use: None Drug Use: None Adult General Chief Complaint Chief Complaint: ASTHMA HPI HPI 57-year-old female patient with history of asthma without history of smoking complaining of sore throat, dry cough, shortness of breath, nasal congestion, myalgia and dry heaves for the last 3 days with subjective fever and chills without improvement of her condition with taking home nebulizer and inhalers. Patient denies sick contact, chest pain, vomiting, diarrhea, focal neuro deficit. Patient rated her pain moderate and doesn't want to have pain medication in ER. Review of Systems Review of Systems Constitutional: Reports subjective fever and chills] Eyes: Denies change in visual acuity, redness, or eye pain [] HENT: Reports nasal congestion and sore throat [] Respiratory: Reports cough and shortness of breath Cardiovascular: No additional information not addressed in HPI [] GI: Denies abdominal pain, nausea, vomiting, bloody stools or diarrhea [] : Denies dysuria or hematuria [] Musculoskeletal: Denies back pain or joint pain [] Integument: Denies rash or skin lesions [] Neurologic: Denies headache, focal weakness or sensory changes [] Endocrine: Denies polyuria or polydipsia [] All other systems were reviewed and found to be within normal limits, except as documented in this note. Allergies Allergies Allergies Coded Allergies Type Severity Reaction Last Updated Verified cinnamon Allergy Intermediate 11/10/17 Yes shellfish derived Allergy Intermediate 11/10/17 Yes Penicillins Adverse Reaction Severe Swelling 11/10/17 Yes Physical Exam Physical Exam Constitutional: Well developed, well nourished, mild distress, non-toxic appearance. [] HENT: Normocephalic, atraumatic, bilateral external ears normal, oropharynx moist, pharyngeal erythema, no oral exudates, nasal congestion,] Eyes: PERRLA, EOMI, conjunctiva normal, no discharge. [] Neck: Normal range of motion, no tenderness, supple, no stridor. [] Cardiovascular:Heart rate regular rhythm, no murmur [] Lungs & Thorax: Bilateral breath sounds clear to auscultation [] Abdomen: Bowel sounds normal, soft, no tenderness, no masses, no pulsatile masses. [] Skin: Warm, dry, no erythema, no rash. [] Back: No tenderness, no CVA tenderness. [] Extremities: No tenderness, no cyanosis, no clubbing, ROM intact, no edema. [] Neurologic: Alert and oriented X 3, normal motor function, normal sensory function, no focal deficits noted. [] Psychologic: Affect normal, judgement normal, mood normal. [] Current Patient Data Vital Signs Vital Signs Date Time Temp Pulse Resp B/P (MAP) Pulse Ox O2 Delivery O2 Flow Rate FiO2 12/16/17 07:26 98.8 105 16 148/72 (97) 97 Room Air 98.8 EKG EKG [] Radiology/Procedures Radiology/Procedures [] Course & Med Decision Making Course & Med Decision Making discharge: I've spoken with the patient and/or caregivers. I've explained the patient's condition, diagnosis and treatment plan based on information available to me at this time. I've answered the patient's and/or caregivers questions and addressed any concerns. The patient and/or caregivers have a good understanding the patient's diagnosis, condition and treatment plan as can be expected at this point. Vital signs have been stabilized. The patient's condition is stable for discharge from the emergency department. The patient will pursue further outpatient evaluation with her primary care provider or other designated consulting physician as outlined in the discharge instructions. Patient and/or caregivers are agreeable to this plan of care and follow-up instructions have been explained in detail. The patient and/or caregivers have received these instructions in written format and expressed understanding of these discharge instructions. The patient and her caregivers are aware that if any significant change in condition or worsening of symptoms should prompt him to immediately return to this of the closest emergency department. If an emergent department is not readily available I would encourage him to call 911. Dennis Disclaimer Dragon Disclaimer This electronic medical record was generated, in whole or in part, using a voice recognition dictation system. Departure Departure Impression: Primary Impression: Upper respiratory infection, acute Disposition: HOME, SELF-CARE (at 0747) Condition: STABLE Referrals: NO PCP (PCP) Patient Instructions: Asthma, Adult, Cough, Adult, Upper Respiratory Infection , Adult Additional Instructions: Drink plenty of liquids Follow-up with your primary care physician in 3-5 days Return to ER if not getting better use your home inhaler and nebulizer Scripts Hydrocodone/Chlorphen P-Stirex (Tussionex Pennkinetic Susp) 115 Ml Marlyn.er.12h 5 ML PO BID, #60 MISC Prov: BOLIVAR DIAZ MD 12/16/17 Azithromycin (ZITHROMAX) 250 Mg Tablet 1 PKG PO UD, #1 PKG Prov: BOLIVAR DIAZ MD 12/16/17 Methylprednisolone (MEDROL) 4 Mg Tab.ds.pk 1 PKG PO UD, #1 PKG Prov: BOLIVAR DIAZ MD 12/16/17 BOLIVAR DIAZ MD Dec 16, 2017 07:51
== END 2017-12-16 07:57 | disposition home or self-care (01) ==
LOC: ER 07:18
DX: J06.9 Acute upper respiratory infection, unspecified (principal); I10 Essential (primary) hypertension; J43.9 Emphysema, unspecified; J45.909 Unspecified asthma, uncomplicated; Z88.0 Allergy status to penicillin; Z91.013 Allergy to seafood; Z91.018 Allergy to other foods
CPT/HCPCS: 99283

== ENCOUNTER → 2017-12-30 | Outpatient (CLI) | payer OTHER ==
[2017-12-16 07:26] VITALS: BP 148/72
[~2017-12-30] MED LIST changes: +HYDR115S2 PO
--- NOTE | 2017-12-30 15:52 | RAD ---
EXAM: Chest, 2 views. HISTORY: Dyspnea on exertion. COMPARISON: 07/06/2017. FINDINGS: 2 views of the chest are obtained. There is no infiltrate, pleural effusion or pneumothorax. There are right posterior lateral sixth and left lateral sixth rib fractures, stable compared to the prior study. IMPRESSION: No acute pulmonary finding. Electronically signed by: Veena Carter MD (12/30/2017 3:49 PM) [facility] [place]
== END | disposition home or self-care (01) ==
LOC: RAD 12:15
PROVIDERS: ATTEND Surgery
DX: S22.43XD Multiple fractures of ribs, bilateral, subsequent encounter for fracture with routine healing (principal); J43.9 Emphysema, unspecified; Z88.0 Allergy status to penicillin; Z87.891 Personal history of nicotine dependence; Z82.49 Family history of ischemic heart disease and other diseases of the circulatory system; Z91.018 Allergy to other foods; Z91.013 Allergy to seafood; X58.XXXD Exposure to other specified factors, subsequent encounter
CPT/HCPCS: 71046

== ENCOUNTER 2018-02-13 11:34 | Emergency (ER) | payer OTHER ==
[~2018-02-13] VITALS: Ht 160 cm; Wt 87.5 kg
[2018-02-13 11:40] VITALS: BP 145/80
[2018-02-13] MEDS ORDERED: IPRATRPIUM/ALBUTEROL 0.5/2.5MG 3 ML NEBU. NEB ONE (12:45)
[2018-02-13] MEDS ORDERED: KETOROLAC 60 MG/2 ML INJ. IM ONE (12:45)
[2018-02-13] MEDS ORDERED: DEXAMETHASONE 4 MG TABLET PO STA (12:45)
--- NOTE | 2018-02-13 13:30 | RAD ---
AP and Lateral Views of the Chest 02/13/2018 12:42 PM Indication: COUGH HX OF COPD Comparison: 2 views of the chest December 30, 2017 Findings: There is no focal consolidation or infiltrate identified. The cardiomediastinal silhouette is within normal limits. There is no evidence of pneumothorax or pleural effusion. Bilateral rib deformities are unchanged. No acute osseous changes are seen. Impression: No evidence of acute cardiopulmonary process or acute change from prior study Electronically signed by: Herb Watson MD (02/13/2018 1:26 PM) [facility]
--- NOTE | 2018-02-13 13:31 | RAD ---
2 views right forearm 02/13/2018 12:42 PM Indication: RIGHT FOREARM PAIN AFTER FALL TODAY Comparison: None Findings: There is no acute fracture or dislocation. Articular surfaces are uninterrupted and smooth. Soft tissues are unremarkable. Impression: No evidence of acute osseous abnormality. Electronically signed by: Herb Watson MD (02/13/2018 1:27 PM) [facility]
--- NOTE | 2018-02-13 13:32 | RAD ---
3 views lumbar spine 02/13/2018 INDICATION: Low back pain following recent fall COMPARISON STUDY: MRI of the lumbar spine March 18, 2006. Discussion: There is a levoscoliosis of the lumbar spine. Degenerative disc space narrowing is seen. Facet arthrosis is seen in the inferior lumbar spine. No evidence of acute fracture or alignment abnormality is identified. Vertebral body heights are maintained. Facet joints demonstrate arthrosis but appear to remain aligned. No acute soft tissue abnormality is not seen. IMPRESSION: Scoliotic and degenerative changes of the lumbar spine without evidence of acute fracture or alignment abnormality. Electronically signed by: Herb Watson MD (02/13/2018 1:29 PM) [facility]
--- NOTE | 2018-02-13 13:34 | RAD ---
3 views right wrist 02/13/2018 12:42 PM Indication: RIGHT WRIST PAIN AFTER FALL TODAY Comparison: None Findings: There is no acute fracture or dislocation. Articular surfaces are uninterrupted and smooth. Soft tissues are unremarkable. Impression: No evidence of acute osseous abnormality. Electronically signed by: Herb Watson MD (02/13/2018 1:31 PM) [facility]
--- NOTE | 2018-02-13 13:35 | RAD ---
2 views right humerus 02/13/2018 12:42 PM Indication: RIGHT ARM PAIN AFTER FALL TODAY Comparison: None Findings: There is no acute fracture or dislocation. Articular surfaces are uninterrupted and smooth. Soft tissues are unremarkable. Impression: No evidence of acute osseous abnormality. Electronically signed by: Herb Watson MD (02/13/2018 1:32 PM) [facility]
--- NOTE | 2018-02-13 13:37 | RAD ---
3 views right shoulder 02/13/2018 12:42 PM Indication: RIGHT SHOULDER PAIN AFTER FALL TODAY Comparison: None Findings: There is no acute fracture or dislocation. Articular surfaces are uninterrupted and smooth. Soft tissues are unremarkable. Impression: No evidence of acute osseous abnormality. Electronically signed by: Herb Watson MD (02/13/2018 1:34 PM) [id number]
[2018-02-13] MEDS ORDERED: HYDR-971 PO (13:52)
[2018-02-13] MEDS ORDERED: PRED50TA PO (13:52)
[2018-02-13] MEDS ORDERED: PROAIR HFA8.5 GM INH (13:52)
--- NOTE | 2018-02-13 13:52 | PHYS DOC ---
Past Medical History Past Medical History: Asthma, Bronchitis, COPD, Hypertension Additional Past Medical Histor: tendonitis, emphysema Past Surgical History: Other Additional Past Surgical Histo: LEFT ROTATOR CUFF Alcohol Use: None Drug Use: None Adult General Chief Complaint Chief Complaint: MECHANICAL FALL HPI HPI Patient is a 57 year old female who presents with this 3 stairs and fell today landing on her right side. Patient complains of right shoulder pain, right upper arm pain, right forearm pain, right wrist pain. There is bruising to the right lower forearm and wrist. Patient also complains of mid lumbar pain. Patient also complaining of having a COPD exacerbation she has had a cough 1 week that is not productive and she not currently taking any medications to help the symptoms. Patient states that she last used her inhaler nebulizer 8:30 this morning. Rates her pain a 10 out of 10 and sharp and states that does not radiate. Patient did drive herself today. Patient's vital signs are 145/80, 18 respirations, 113 heart rate, 97% on room air, 97.9. Patient's no known drug allergies. Review of Systems Review of Systems Constitutional: Denies fever or chills [] Eyes: Denies change in visual acuity, redness, or eye pain [] HENT: Denies nasal congestion or sore throat [] Respiratory: Cough and shortness of breath [] Cardiovascular: No additional information not addressed in HPI [] GI: Denies abdominal pain, nausea, vomiting, bloody stools or diarrhea [] : Denies dysuria or hematuria [] Musculoskeletal: low back pain, Right shoulder and wrist joint pain, right upper arm pain and right forearm pain. Right lower forearm bruising and right wrist bruising. [] Integument: Denies rash or skin lesions [] Neurologic: Denies headache, focal weakness or sensory changes [] Endocrine: Denies polyuria or polydipsia [] All other systems were reviewed and found to be within normal limits, except as documented in this note. Current Medications Current Medications Current Medications Medications (Trade) Dose Ordered Sig/Rob Start Time Stop Time Status Last Admin Dose Admin Albuterol/ Ipratropium (Duoneb) 3 ml 1X ONCE 02/13/18 12:45 02/13/18 12:51 DC 02/13/18 13:19 3 ML Dexamethasone (Decadron) 8 mg 1X STAT 02/13/18 12:45 02/13/18 12:51 DC 02/13/18 13:56 8 MG Ketorolac Tromethamine (Toradol Im) 60 mg 1X ONCE 02/13/18 12:45 02/13/18 12:51 DC 02/13/18 13:57 60 MG Allergies Allergies Allergies Coded Allergies Type Severity Reaction Last Updated Verified cinnamon Allergy Intermediate 11/10/17 Yes shellfish derived Allergy Intermediate 11/10/17 Yes Penicillins Adverse Reaction Severe Swelling 11/10/17 Yes Physical Exam Physical Exam Constitutional: Well developed, well nourished, no acute distress, non-toxic appearance. [] HENT: Normocephalic, atraumatic, bilateral external ears normal, oropharynx moist, no oral exudates, nose normal. [] Eyes: PERRLA, EOMI, conjunctiva normal, no discharge. [] Neck: Normal range of motion, no tenderness, supple, no stridor. [] Cardiovascular:Heart rate regular rhythm, no murmur [] Lungs & Thorax: Bilateral upper breath sounds clear, Bilateral lower lungs diminished to auscultation [] Abdomen: Bowel sounds normal, soft, no tenderness, no masses, no pulsatile masses. [] Skin: Warm, dry, no erythema, no rash. [] Back: No tenderness, no CVA tenderness. [] Extremities:Right lower forearm bruising and right wrist bruising and tenderness. no cyanosis, no clubbing, ROM not intact in right shoulder and right wrist, no edema. [] Neurologic: Alert and oriented X 3, normal motor function, normal sensory function, no focal deficits noted. [] Psychologic: Affect normal, judgement normal, mood normal. [] Current Patient Data Vital Signs Vital Signs Date Time Temp Pulse Resp B/P (MAP) Pulse Ox O2 Delivery O2 Flow Rate FiO2 02/13/18 13:19 100 Room Air 02/13/18 11:40 97.9 100 20 145/80 (101) 97.9 EKG EKG [] Radiology/Procedures Radiology/Procedures Right shoulder, wrist, humerus, forearm, lumbar, chest Impressions: [facility] [address] [place], [place] [id number] IMAGING REPORT Signed PATIENT: ROSA ADAME ACCOUNT: [id number] : 1960 LOCATION: ER AGE: 57 SEX: F EXAM STATUS: REG ER ORD. PHYSICIAN: DOLORES PRAKASH APRN REASON: COUGH/COPD HX PROCEDURE: CHEST PA & LATERAL AP and Lateral Views of the Chest 02/13/2018 12:42 PM Indication: COUGH HX OF COPD Comparison: 2 views of the chest December 30, 2017 Findings: There is no focal consolidation or infiltrate identified. The cardiomediastinal silhouette is within normal limits. There is no evidence of pneumothorax or pleural effusion. Bilateral rib deformities are unchanged. No acute osseous changes are seen. Impression: No evidence of acute cardiopulmonary process or acute change from prior study Electronically signed by: Herb Mcknight MD (02/13/2018 1:26 PM) [facility] DICTATED and SIGNED BY: HERB MCKNIGHT MD DATE: 02/13/[address] [place] [id number] IMAGING REPORT Signed PATIENT: ROSA ADAME ACCOUNT: [id number] : 1960 LOCATION: ER AGE: 57 SEX: F EXAM STATUS: REG ER ORD. PHYSICIAN: DOLORES PRAKASH APRN REASON: FALL, RT FOREARM PAIN PROCEDURE: FOREARM RIGHT 2 views right forearm 02/13/2018 12:42 PM Indication: RIGHT FOREARM PAIN AFTER FALL TODAY Comparison: None Findings: There is no acute fracture or dislocation. Articular surfaces are uninterrupted and smooth. Soft tissues are unremarkable. Impression: No evidence of acute osseous abnormality. Electronically signed by: Herb Mcknight MD (02/13/2018 1:27 PM) [facility] DICTATED and SIGNED BY: HERB MCKNIGHT MD DATE: 02/13/[address] [place] [id number] IMAGING REPORT Signed PATIENT: ROSA ADAME ACCOUNT: [id number] : 1960 LOCATION: ER AGE: 57 SEX: F EXAM STATUS: REG ER ORD. PHYSICIAN: DOLORES PRAKASH APRN REASON: FALL PROCEDURE: HUMERUS RIGHT 2 views right humerus 02/13/2018 12:42 PM Indication: RIGHT ARM PAIN AFTER FALL TODAY Comparison: None Findings: There is no acute fracture or dislocation. Articular surfaces are uninterrupted and smooth. Soft tissues are unremarkable. Impression: No evidence of acute osseous abnormality. Electronically signed by: Herb Mcknight MD (02/13/2018 1:32 PM) [facility] DICTATED and SIGNED BY: HERB MCKNIGHT MD DATE: 02/13/[address] [id number] IMAGING REPORT Signed PATIENT: ROSA ADAME ACCOUNT: [id number] : 1960 LOCATION: ER AGE: 57 SEX: F EXAM STATUS: REG ER ORD. PHYSICIAN: DOLORES PRAKASH APRN REASON: FALL, LOW BACK PAIN PROCEDURE: LUMBAR SPINE 2-3V 3 views lumbar spine 02/13/2018 INDICATION: Low back pain following recent fall COMPARISON STUDY: MRI of the lumbar spine March 18, 2006. Discussion: There is a levoscoliosis of the lumbar spine. Degenerative disc space narrowing is seen. Facet arthrosis is seen in the inferior lumbar spine. No evidence of acute fracture or alignment abnormality is identified. Vertebral body heights are maintained. Facet joints demonstrate arthrosis but appear to remain aligned. No acute soft tissue abnormality is not seen. IMPRESSION: Scoliotic and degenerative changes of the lumbar spine without evidence of acute fracture or alignment abnormality. Electronically signed by: Herb Mcknight MD (02/13/2018 1:29 PM) [facility] DICTATED and SIGNED BY: HERB MCKNIGHT MD DATE: 02/13/18 [address] [place] [address] IMAGING REPORT Signed PATIENT: ROSA ADAME ACCOUNT: [id number] : 1960 LOCATION: ER AGE: 57 SEX: F EXAM STATUS: REG ER ORD. PHYSICIAN: DOLORES PRAKASH APRN REASON: FALL, RT SHOULDER PAIN PROCEDURE: SHOULDER 2+V RIGHT 3 views right shoulder 02/13/2018 12:42 PM Indication: RIGHT SHOULDER PAIN AFTER FALL TODAY Comparison: None Findings: There is no acute fracture or dislocation. Articular surfaces are uninterrupted and smooth. Soft tissues are unremarkable. Impression: No evidence of acute osseous abnormality. Electronically signed by: Herb Mcknight MD (02/13/2018 1:34 PM) [facility] DICTATED and SIGNED BY: HERB MCKNIGHT MD DATE: 02/13/18 1332 [facility] [address] [place] [address] IMAGING REPORT Signed PATIENT: ROSA ADAME ACCOUNT: [id number] : 1960 LOCATION: ER AGE: 57 SEX: F EXAM STATUS: REG ER ORD. PHYSICIAN: DOLORES PRAKASH APRN REASON: FALL, RT WRIST PAIN PROCEDURE: WRIST 3V RIGHT 3 views right wrist 02/13/2018 12:42 PM Indication: RIGHT WRIST PAIN AFTER FALL TODAY Comparison: None Findings: There is no acute fracture or dislocation. Articular surfaces are uninterrupted and smooth. Soft tissues are unremarkable. Impression: No evidence of acute osseous abnormality. Electronically signed by: Herb Mcknight MD (02/13/2018 1:31 PM) [facility] DICTATED and SIGNED BY: HERB MCKNIGHT MD DATE: 02/13/18 133 Course & Med Decision Making Course & Med Decision Making Patient is a 57 year old female who presents with this 3 stairs and fell today landing on her right side. Patient complains of right shoulder pain, right upper arm pain, right forearm pain, right wrist pain. There is bruising to the right lower forearm and wrist. Patient also complains of mid lumbar pain. Patient also complaining of having a COPD exacerbation she has had a cough 1 week that is not productive and she not currently taking any medications to help the symptoms. Patient states that she last used her inhaler nebulizer 8:30 this morning. Rates her pain a 10 out of 10 and sharp and states that does not radiate. Patient did drive herself today. Patient's vital signs are 145/80, 18 respirations, 113 heart rate, 97% on room air, 97.9. Patient's no known drug allergies. Patient is afebrile. Patient has bruising at her right lower forearm and wrist. She has tenderness with palpation to her right upper arm and to the right lower forearm and wrist area. Patient has limited range of motion in her shoulder and wrist due to pain. There is no swelling seen or deformities. Patient has a strong radial pulse in the right arm. Patient received a breathing treatment, dexamethasone, and Toradol in the ED. Patient has no cervical spinal pain or deformity seen. Patient denies hitting her head or LOC. Patient denies any mid back pain or rib pain. Patient denies shortness of breath or chest pain. Skin is pink warm and dry and she speaks in full sentences. Patient states she does feel better after her breathing treatment and medications. Patient's lungs sound clear. With auscultation before breathing treatment she her upper lobes were clear in her lower lung lobes were diminished. I gave patient a prescription for prednisone to start in 2 days, a rescue inhaler, and some [place] for pain. Patient is to follow-up with her primary care doctor. Staff Physician Addendum: I was working in the ER during the course of this patient's visit. I was available for consultation as needed, but I was not directly involved in the care of this patient. [] Dragon Disclaimer Dragon Disclaimer This electronic medical record was generated, in whole or in part, using a voice recognition dictation system. Departure Departure Impression: Primary Impression: Cough due to bronchospasm Additional Impressions: Contusion Fall (on) (from) other stairs and steps, initial encounter Disposition: 01 HOME, SELF-CARE Condition: STABLE Referrals: SHARAN SEXTON (PCP) Patient Instructions: Back Pain, Adult, Contusion, Fall Prevention and Home Safety, Wrist Pain Additional Instructions: Follow up with your primary care physician. Take Ibuprofen or Tylenol. Scripts Hydrocodone/Apap 5-325 (NORCO 5-325 TABLET) 1 Each Tablet 1 TAB PO PRN Q6HRS PRN for PAIN, #8 TAB 0 Refills Prov: DOLORES PRAKASH SPRINKLER FITTER APPRENTICE 02/13/18 Albuterol Sulfate (PROAIR HFA INHALER) 8.5 Gm Hfa.aer.ad 1 PUFF INH PRN Q6HRS PRN for SHORTNESS OF BREATH, #1 INHALER 0 Refills Prov: DOLORES PRAKASH APRN 02/13/18 Prednisone (PREDNISONE) 50 Mg Tablet 1 TAB PO DAILY, #4 TAB START TAKING ON 02/15 Prov: DOLORES PRAKASH APRN 02/13/18 Problem Qualifiers Additional Impressions: Contusion Encounter type: initial encounter Contusion area: lower back Qualified Codes: S30.0XXA - Contusion of lower back and pelvis, initial encounter DOLORES PRAKASH APRN Feb 13, 2018 13:52 THONG GARCIA MD Feb 13, 2018 15:09
== END 2018-02-13 14:08 | disposition home or self-care (01) ==
LOC: ER 11:34
DX: S30.0XXA Contusion of lower back and pelvis, initial encounter (principal); R05 Cough; S60.211A Contusion of right wrist, initial encounter; S50.11XA Contusion of right forearm, initial encounter; M25.511 Pain in right shoulder; I10 Essential (primary) hypertension; J43.9 Emphysema, unspecified; J45.909 Unspecified asthma, uncomplicated; Z88.0 Allergy status to penicillin; Z91.013 Allergy to seafood; Z91.018 Allergy to other foods; W18.39XA Other fall on same level, initial encounter; Y93.89 Activity, other specified; Y92.89 Other specified places as the place of occurrence of the external cause; Y99.8 Other external cause status
CPT/HCPCS: 71046; 72100; 73030; 73060; 73090; 73110; 94640; 96372; 99284; J1885; J7620; J8540

== ENCOUNTER 2018-03-22 10:15 | Emergency (ER) | payer OTHER ==
[~2018-03-22] VITALS: Ht 160 cm; Wt 88.5 kg
--- NOTE | 2018-03-22 11:07 | PHYS DOC ---
Past Medical History Past Medical History: Asthma, Bronchitis, COPD, Hypertension Additional Past Medical Histor: tendonitis, emphysema Past Surgical History: Other Additional Past Surgical Histo: LEFT ROTATOR CUFF Alcohol Use: None Drug Use: None Adult General Chief Complaint Chief Complaint: ASTHMA HPI HPI Patient is a 57 year old female who presents with URI symptoms x one week. Patient has had upper airway congestion and worsening asthma symptoms over the last 5-7 days. She has had no fever but has had some chills. She reports runny nose and cough that has been nonproductive. She has been using her inhaler every 4 hours at home with moderate relief of symptoms. No recent travel. No rashes. No GEORGE or neck stiffness. Review of Systems Review of Systems Constitutional: Denies fever Eyes: Denies change in visual acuity HENT: as documented above Respiratory: + cough and dyspnea Cardiovascular: No additional information not addressed in HPI GI: Denies abdominal pain, nausea, vomiting : Denies dysuria Musculoskeletal: Denies back pain Integument: Denies rash or skin lesions Neurologic: Denies headache Endocrine: Denies polyuria All other systems were reviewed and found to be within normal limits, except as documented in this note. Current Medications Current Medications Current Medications Medications (Trade) Dose Ordered Sig/Rob Start Time Stop Time Status Last Admin Dose Admin Albuterol/ Ipratropium (Duoneb) 3 ml 1X ONCE 03/22/18 11:15 03/22/18 11:16 DC 03/22/18 11:22 3 ML Azithromycin (Zithromax) 500 mg 1X ONCE 03/22/18 11:15 03/22/18 11:16 DC 03/22/18 11:35 500 MG Prednisone (Prednisone) 50 mg 1X ONCE 03/22/18 11:15 03/22/18 11:16 DC 03/22/18 11:36 50 MG Allergies Allergies Allergies Coded Allergies Type Severity Reaction Last Updated Verified cinnamon Allergy Intermediate 11/10/17 Yes shellfish derived Allergy Intermediate 11/10/17 Yes Penicillins Adverse Reaction Severe Swelling 11/10/17 Yes Physical Exam Physical Exam Constitutional: Well developed, well nourished, no acute distress, non-toxic appearance HENT: Normocephalic, atraumatic, bilateral external ears normal, oropharynx moist Eyes: PERRLA, EOMI Neck: Normal range of motion, no tenderness Cardiovascular:Heart rate regular rhythm, no murmur Lungs & Thorax: few faint, scattered wheezes Abdomen: Bowel sounds normal, soft, no tenderness Skin: Warm, dry, no erythema, no rash Extremities: No edema Neurologic: Alert and oriented X 3 Psychologic: Affect normal Current Patient Data Vital Signs Vital Signs Date Time Temp Pulse Resp B/P (MAP) Pulse Ox O2 Delivery O2 Flow Rate FiO2 03/22/18 11:22 96 Room Air 03/22/18 10:35 97.6 106 22 158/77 (104) 97.6 Lab Values Laboratory Tests Test 03/22/18 11:40 Influenza Type A Antigen Negative (NEGATIVE) Influenza Type B Antigen Negative (NEGATIVE) EKG EKG [] Radiology/Procedures Radiology/Procedures [] Course & Med Decision Making Course & Med Decision Making Pertinent Labs and Imaging studies reviewed. (See chart for details) Patient was evaluated in the emergency department primarily for respiratory symptoms and exacerbation of asthma. Patient had a few wheezes on arrival. She was given a single DuoNeb in the ER which did improve her lung sounds. She was started on prednisone and the first dose of azithromycin was also given. The patient will be discharged home with prednisone and a completed prescription of azithromycin. She is advised to continue using her inhaler every 4 hours over the next 48 hours while awake. Call primary doctor for follow-up or return to the ER for any new or worsening symptoms. Dragon Disclaimer Dragon Disclaimer This electronic medical record was generated, in whole or in part, using a voice recognition dictation system. Departure Departure Disposition: 01 HOME, SELF-CARE Condition: GOOD Referrals: SHARAN SEXTON (PCP) Scripts Azithromycin (AZITHROMYCIN TABLET) 250 Mg Tablet 250 MG PO DAILY for ANTI-BIOTIC for 4 Days, #4 TAB 0 Refills Prov: RASHARD FISHER DO 03/22/18 Prednisone (PREDNISONE) 50 Mg Tablet 1 TAB PO DAILY, #5 TAB Prov: RASHARD FISHER DO 03/22/18 RASHARD FISHER DO Mar 22, 2018 11:07
--- NOTE | 2018-03-22 11:11 | EKG ---
[facility] [address] [place] [address] Test Date: 2018-03-22 Test Time: 10:45:03 Pat Name: ROSA ADAME Department: Room: Gender: F Screener And Blender: : 1960 Requested By: RASHARD FISHER Order Number: [id number] Reading MD: Salvador Charles MD Measurements Intervals [place] Rate: 100 P: 90 CT: 150 QRS: 2 QRSD: 68 T: 64 QT: 326 QTc: 423 Interpretive Statements SINUS RHYTHM Electronically Signed On 03-23-2018 9:30:59 MUSIC ENGRAVER by Salvador Charles MD
[2018-03-22] MEDS ORDERED: AZITHROMYCIN 250 MG TABLET. PO ONE (11:15)
[2018-03-22] MEDS ORDERED: predniSONE 10 MG TABLET PO ONE (11:15)
[2018-03-22] MEDS ORDERED: IPRATRPIUM/ALBUTEROL 0.5/2.5MG 3 ML NEBU. NEB ONE (11:15)
[2018-03-22 12:15] LABS: INFLUENZA A PATIENT NEGATIVE (NEGATIVE); INFLUENZA B PATIENT NEGATIVE (NEGATIVE)
[2018-03-22] MEDS ORDERED: AZIT250T6 PO (12:34)
[2018-03-22] MEDS ORDERED: PRED50TA PO (12:34)
[2018-03-22 13:03] VITALS: BP 139/74
== END 2018-03-22 13:13 | disposition home or self-care (01) ==
LOC: ER 10:15
DX: J45.901 Unspecified asthma with (acute) exacerbation (principal); J44.9 Chronic obstructive pulmonary disease, unspecified; I10 Essential (primary) hypertension; Z88.0 Allergy status to penicillin; Z91.013 Allergy to seafood; Z91.018 Allergy to other foods
CPT/HCPCS: 87804; 93005; 94640; 99285; J7512; J7620; Q0144

== ENCOUNTER 2018-04-19 10:29 | Emergency (ER) | payer OTHER ==
[~2018-04-19] VITALS: Ht 160 cm; Wt 88.5 kg
[~2018-04-19 10:29] MED LIST changes: -GABA-587 PO; +GABA-689 PO; +HYDR-3164 PO; -HYDR-971 PO
--- NOTE | 2018-04-19 10:59 | PHYS DOC ---
Past Medical History Past Medical History: Asthma, Bronchitis, COPD, Hypertension, Other Additional Past Medical Histor: tendonitis, emphysema Past Surgical History: Tonsillectomy, Other Additional Past Surgical Histo: LEFT ROTATOR CUFF Additional Information: 'TRYING TO QUIT' Alcohol Use: None Drug Use: None Adult General Chief Complaint Chief Complaint: ASTHMA HPI HPI Patient is a 57 year old female with a hx of asthma and COPD who presents with SOB, cough, and wheezing. The patient reports she has been sick with a cough, congestion, and rhinorrhea over the past month but over the past 2-3 days she began to develop worsening SOB, productive cough and wheezing. She has attempted home nebulizers without relief. She is a current everyday smoker and has smoked around 50 pack years. She denies any recent travel or surgeries. She denies CP, leg edema, fevers and chills. Did not receive flu shot this season. No other complaints or Sx at this time. Review of Systems Review of Systems Constitutional: Denies fever or chills [] Eyes: Denies change in visual acuity, redness, or eye pain [] HENT: + congestion and + rhinorrhea. Respiratory: + cough, + SOB, + wheezing. Cardiovascular: No additional information not addressed in HPI [] GI: Denies abdominal pain, nausea, vomiting, bloody stools or diarrhea [] : Denies dysuria or hematuria [] Musculoskeletal: Denies back pain or joint pain [] Integument: Denies rash or skin lesions [] Neurologic: Denies headache, focal weakness or sensory changes [] Endocrine: Denies polyuria or polydipsia [] All other systems were reviewed and found to be within normal limits, except as documented in this note. Current Medications Current Medications Current Medications Medications (Trade) Dose Ordered Sig/Rob Start Time Stop Time Status Last Admin Dose Admin Albuterol/ Ipratropium (Duoneb) 3 ml 1X ONCE 04/19/18 11:15 04/19/18 11:16 DC 04/19/18 11:25 3 ML Doxycycline Hyclate (Vibra-Tab) 100 mg 1X ONCE 04/19/18 11:15 04/19/18 11:16 DC 04/19/18 11:26 100 MG Methylprednisolone Sodium Succinate (SOLU-Medrol 125MG VIAL) 125 mg 1X ONCE 04/19/18 11:15 04/19/18 11:16 DC 04/19/18 11:26 125 MG Allergies Allergies Allergies Coded Allergies Type Severity Reaction Last Updated Verified cinnamon Allergy Intermediate 11/10/17 Yes shellfish derived Allergy Intermediate 11/10/17 Yes Penicillins Adverse Reaction Severe Swelling 11/10/17 Yes Physical Exam Physical Exam Constitutional: Well developed, well nourished, no acute distress, non-toxic appearance. [] HENT: Normocephalic, atraumatic, bilateral external ears normal, oropharynx moist, no oral exudates, nose normal. [] Eyes: PERRLA, EOMI, conjunctiva normal, no discharge. [] Neck: Normal range of motion, no tenderness, supple, no stridor. [] Cardiovascular:Heart rate regular rhythm, no murmur [] Lungs & Thorax: Moving good air. Distant breath sounds. Wheezing throughout all lung caro. No crackles or rhonchi. Abdomen: Bowel sounds normal, soft, no tenderness, no masses, no pulsatile masses. [] Skin: Warm, dry, no erythema, no rash. [] Back: No tenderness, no CVA tenderness. [] Extremities: No tenderness, no cyanosis, no clubbing, ROM intact, no edema. [] Neurologic: Alert and oriented X 3, normal motor function, normal sensory function, no focal deficits noted. [] Psychologic: Affect normal, judgement normal, mood normal. [] Current Patient Data Vital Signs Vital Signs Date Time Temp Pulse Resp B/P (MAP) Pulse Ox O2 Delivery O2 Flow Rate FiO2 04/19/18 11:25 97 Room Air 04/19/18 10:36 98.1 106 18 181/81 (114) 98.1 Lab Values Laboratory Tests Test 04/19/18 11:17 04/19/18 11:22 Influenza Type A Antigen Negative (NEGATIVE) Influenza Type B Antigen Negative (NEGATIVE) White Blood Count 11.2 x10^3/uL (4.0-11.0) H Red Blood Count 4.14 x10^6/uL (3.50-5.40) Hemoglobin 13.4 g/dL (12.0-15.5) Hematocrit 38.1 % (36.0-47.0) Mean Corpuscular Volume 92 fL (79-100) Mean Corpuscular Hemoglobin 32 pg (25-35) Mean Corpuscular Hemoglobin Concent 35 g/dL (31-37) Red Cell Distribution Width 13.3 % (11.5-14.5) Platelet Count 472 x10^3/uL (140-400) H Neutrophils (%) (Auto) 62 % (31-73) Lymphocytes (%) (Auto) 20 % (24-48) L Monocytes (%) (Auto) 6 % (0-9) Eosinophils (%) (Auto) 12 % (0-3) H Basophils (%) (Auto) 1 % (0-3) Neutrophils # (Auto) 6.9 x10^3uL (1.8-7.7) Lymphocytes # (Auto) 2.2 x10^3/uL (1.0-4.8) Monocytes # (Auto) 0.6 x10^3/uL (0.0-1.1) Eosinophils # (Auto) 1.3 x10^3/uL (0.0-0.7) H Basophils # (Auto) 0.1 x10^3/uL (0.0-0.2) Sodium Level 141 mmol/L (136-145) Potassium Level 3.9 mmol/L (3.5-5.1) Chloride Level 104 mmol/L (98-107) Carbon Dioxide Level 27 mmol/L (21-32) Anion Gap 10 (6-14) Blood Urea Nitrogen 8 mg/dL (7-20) Creatinine 0.7 mg/dL (0.6-1.0) Estimated GFR (Cockcroft-Gault) 103.6 BUN/Creatinine Ratio 11 (6-20) Glucose Level 94 mg/dL (70-99) Calcium Level 9.4 mg/dL (8.5-10.1) Total Bilirubin 0.3 mg/dL (0.2-1.0) Aspartate Amino Transferase (AST) 22 U/L (15-37) Alanine Aminotransferase (ALT) 26 U/L (14-59) Alkaline Phosphatase 93 U/L (46-116) Total Protein 7.2 g/dL (6.4-8.2) Albumin 3.2 g/dL (3.4-5.0) L Albumin/Globulin Ratio 0.8 (1.0-1.7) L Laboratory Tests 04/19/18 11:22 Laboratory Tests 04/19/18 11:22 EKG EKG [] Radiology/Procedures Radiology/Procedures [] Impressions: Cardiomediastinal silhouette: Not grossly enlarged. Lungs: No focal airspace consolidation. Pleura: No evidence of pleural effusion. Pneumothorax: None visualized Support Devices: None Aorta: Atherosclerotic calcifications. There is some apparent pleural thickening along the right hemithorax which is unchanged, may be due to old rib fractures. Impression: No acute radiographic findings. Electronically signed by: Brady Cherry MD (04/19/2018 11:27 AM) [facility] DICTATED and SIGNED BY: BRADY CHERRY MD DATE: 04/19/181123 Course & Med Decision Making Course & Med Decision Making Pertinent Labs and Imaging studies reviewed. (See chart for details) Assessment: 57 y/o female with a hx of COPD presents with SOB, cough and wheezing 1. acute on chronic COPD 2. pneumonia 3. influenza 4. bacterial rhinosinusitis Plan: Duonebs Doxycycline IV steroids CXR labs-CBC, CMP Influenza swab IMPROVED WITH ER TREATMENT. PLAN FOR OUTPT TX WITH ALBUTEROL PREDNISONE DOXYCYCLINE. Dragon Disclaimer Dragon Disclaimer This electronic medical record was generated, in whole or in part, using a voice recognition dictation system. Departure Departure Impression: Primary Impression: COPD exacerbation Disposition: 01 HOME, SELF-CARE Condition: STABLE Referrals: SHARAN SEXTON (PCP) Scripts Albuterol Sulfate (PROVENTIL HFA INHALER) 6.7 Gm Hfa.aer.ad 1 PUFF IH PRN Q4HRS PRN for FOR ASTHMA, #1 INHALER 0 Refills Prov: THONG GARCIA MD 04/19/18 Prednisone (PREDNISONE) 50 Mg Tablet 1 TAB PO DAILY, #5 TAB Prov: THONG GARCIA MD 04/19/18 Doxycycline Hyclate (DOXYCYCLINE HYCLATE) 100 Mg Tablet 1 TAB PO BID, #14 TAB Prov: THONG GARCIA MD 04/19/18 THONG GARCIA MD Apr 19, 2018 10:59
[2018-04-19 11:00] VITALS: BP 167/75
[2018-04-19] MEDS: IPRATRPIUM/ALBUTEROL 0.5/2.5MG 3 ML NEBU. NEB ONE (11:25)
[2018-04-19] MEDS: DOXYCYCLINE HYCLATE 100 MG TABLET PO ONE (11:26)
[2018-04-19] MEDS: methylPREDNISolone SOD SUCC PF 125 MG/2 ML VIAL. IV ONE (11:26)
--- NOTE | 2018-04-19 11:30 | RAD ---
PORTABLE CHEST 1V History: COUGH, SOA. Comparison: February 13, 2018 Cardiomediastinal silhouette: Not grossly enlarged. Lungs: No focal airspace consolidation. Pleura: No evidence of pleural effusion. Pneumothorax: None visualized Support Devices: None Aorta: Atherosclerotic calcifications. There is some apparent pleural thickening along the right hemithorax which is unchanged, may be due to old rib fractures. Impression: No acute radiographic findings. Electronically signed by: Brady Cherry MD (04/19/2018 11:27 AM) [facility]
[2018-04-19 11:36] LABS: BASO # 0.1 x10^3/uL (0.0-0.2); BASO % 1 % (0-3); EOS # 1.3 x10^3/uL (0.0-0.7); EOS % 12 % (0-3); HEMATOCRIT 38.1 % (36.0-47.0); HEMOGLOBIN 13.4 g/dL (12.0-15.5); LYMPH # 2.2 x10^3/uL (1.0-4.8); LYMPH % 20 % (24-48); MEAN CORPUSCULAR HEMOGLOBIN 32 pg (25-35); MEAN CORPUSCULAR HGB CONC 35 g/dL (31-37); MEAN CORPUSCULAR VOLUME 92 fL (79-100); MONO # 0.6 x10^3/uL (0.0-1.1); MONO % 6 % (0-9); NEUT # 6.9 x10^3uL (1.8-7.7); NEUT % 62 % (31-73); PLATELET COUNT 472 x10^3/uL (140-400); RED BLOOD COUNT 4.14 x10^6/uL (3.50-5.40); RED CELL DISTRIBUTION WIDTH 13.3 % (11.5-14.5); WHITE BLOOD COUNT 11.2 x10^3/uL (4.0-11.0)
[2018-04-19 11:48] LABS: CALCIUM 9.4 mg/dL (8.5-10.1); CREATININE 0.7 mg/dL (0.6-1.0); GFR 103.6; POTASSIUM 3.9 mmol/L (3.5-5.1)
[2018-04-19 11:54] LABS: ALBUMIN 3.2 g/dL (3.4-5.0); ALBUMIN/GLOBULIN RATIO 0.8 (1.0-1.7); TOTAL BILIRUBIN 0.3 mg/dL (0.2-1.0); TOTAL PROTEIN 7.2 g/dL (6.4-8.2)
[2018-04-19] MEDS ORDERED: DOXY100T PO (12:03)
[2018-04-19] MEDS ORDERED: PRED50TA PO (12:03)
[2018-04-19] MEDS ORDERED: PROVENTIL HFA6.7 GM IH (12:03)
[2018-04-19 12:06] LABS: INFLUENZA A PATIENT NEGATIVE (NEGATIVE); INFLUENZA B PATIENT NEGATIVE (NEGATIVE)
== END 2018-04-19 12:31 | disposition home or self-care (01) ==
LOC: ER 10:29
DX: J44.1 Chronic obstructive pulmonary disease with (acute) exacerbation (principal); J10.00 Influenza due to other identified influenza virus with unspecified type of pneumonia; J32.8 Other chronic sinusitis; B96.89 Other specified bacterial agents as the cause of diseases classified elsewhere
CPT/HCPCS: 36415; 71045; 80053; 85025; 87804; 94640; 96374; 99284; J2930; J7620

== ENCOUNTER 2018-05-02 19:23 | Emergency (ER) | payer OTHER ==
[~2018-05-02] VITALS: Ht 160 cm; Wt 88.5 kg
[~2018-05-02 19:23] MED LIST changes: +ALBU2.5V8 IH; +ALBU2.5V8 INH; -ALBU8.5H8 IH; +DOXY100T PO; -PROAIR HFA8.5 GM INH
[2018-05-02 20:41] VITALS: BP 146/67
[2018-05-02] MEDS ORDERED: HYDR-3164 PO (22:09)
[2018-05-02] MEDS ORDERED: CLIN150C14 PO (22:09)
[2018-05-02] MEDS ORDERED: MELO7.5T29 PO (22:09)
--- NOTE | 2018-05-02 22:10 | PHYS DOC ---
Past Medical History Past Medical History: Asthma, Bronchitis, COPD, Hypertension, Other Additional Past Medical Histor: tendonitis, emphysema Past Surgical History: Tonsillectomy, Other Additional Past Surgical Histo: LEFT ROTATOR CUFF Alcohol Use: None Drug Use: None Adult General Chief Complaint Chief Complaint: Toothache HPI HPI Patient is a 57 year old FEMALE who presents with left-sided dental and facial pain. This started approximately 2 days ago and is been getting worse over time. Both in the upper teeth as well as lower jaw. No trauma. No fever. No relief with home medicines. Pain is moderate in intensity.[] Review of Systems Review of Systems Constitutional: Denies fever or chills [] Eyes: Denies change in visual acuity, redness, or eye pain [] HENT: Denies nasal congestion or sore throat [] Respiratory: Denies cough or shortness of breath [] Cardiovascular: No chest pain or palpitations[] GI: Denies abdominal pain, nausea, vomiting, bloody stools or diarrhea [] : Denies dysuria or hematuria [] Musculoskeletal: Denies back pain or joint pain [] Integument: Denies rash or skin lesions [] Neurologic: Denies headache, focal weakness or sensory changes [] Endocrine: Denies polyuria or polydipsia [] All other systems were reviewed and found to be within normal limits, except as documented in this note. Allergies Allergies Allergies Coded Allergies Type Severity Reaction Last Updated Verified cinnamon Allergy Intermediate 11/10/17 Yes shellfish derived Allergy Intermediate 11/10/17 Yes Penicillins Adverse Reaction Severe Swelling 11/10/17 Yes Physical Exam Physical Exam Constitutional: Well developed, well nourished, no acute distress, non-toxic appearance. [] HENT: Normocephalic, atraumatic, bilateral external ears normal, oropharynx moist, no oral exudates, nose normal. Patient has poor dentition, 1 tooth left lower jaw that is riddled with caries and broken. There is tenderness to percussion of this tooth. She has tenderness to percussion of multiple teeth in the left upper portion, these are again riddled with caries. There is no trismus. There is no drainable abscess noted. Uvula is midline. [] Eyes: PERRLA, EOMI, conjunctiva normal, no discharge. [] Neck: Normal range of motion, no tenderness, supple, no stridor. [] Cardiovascular:Heart rate regular rhythm, no murmur [] Lungs & Thorax: Bilateral breath sounds clear to auscultation [] Abdomen: Not examined. [] Skin: Warm, dry, no erythema, no rash. [] Back: No tenderness, no CVA tenderness. [] Extremities: No tenderness, no cyanosis, no clubbing, ROM intact, no edema. [] Neurologic: Alert and oriented X 3, normal motor function, normal sensory function, no focal deficits noted. [] Psychologic: Affect normal, judgement normal, mood normal. [] Current Patient Data Vital Signs Vital Signs Date Time Temp Pulse Resp B/P (MAP) Pulse Ox O2 Delivery O2 Flow Rate FiO2 05/02/18 20:41 99.8 110 18 146/67 (93) 94 Room Air 99.8 EKG EKG [] Radiology/Procedures Radiology/Procedures [] Course & Med Decision Making Course & Med Decision Making Pertinent Labs and Imaging studies reviewed. (See chart for details) [] Dragon Disclaimer Dragon Disclaimer This electronic medical record was generated, in whole or in part, using a voice recognition dictation system. Departure Departure Impression: Primary Impression: Dental infection Disposition: HOME, SELF-CARE Condition: GOOD Referrals: SHARAN SEXTON (PCP) Follow-up in 2 days Patient Instructions: Dental Abscess Additional Instructions: Follow-up with your regular doctor and dentist in 2 days. If you do not have a regular dentist a list of local low-cost dental clinics will be provided for you. Return to the ER if worsening pain or any other concerns. Scripts Hydrocodone/Apap 5-325 (NORCO 5-325 TABLET) 1 Each Tablet 1-2 EACH PO PRN Q6HRS PRN for PAIN, #15 as needed for pain Prov: JELLY FONTENOT DO 05/02/18 Meloxicam (MELOXICAM) 7.5 Mg Tablet 7.5 MG PO DAILY, #20 TAB Prov: JELLY FONTENOT DO 05/02/18 Clindamycin Hcl (CLINDAMYCIN HCL) 150 Mg Capsule 300 MG PO QID, #80 CAP Prov: JELLY FONTENOT DO 05/02/18 JELLY FONTENOT DO May 02, 2018 22:09
== END 2018-05-02 22:21 | disposition home or self-care (01) ==
LOC: ER 19:23
DX: K04.7 Periapical abscess without sinus (principal); R51 Headache; I10 Essential (primary) hypertension; J43.9 Emphysema, unspecified; J45.909 Unspecified asthma, uncomplicated; Z88.0 Allergy status to penicillin; Z88.8 Allergy status to other drugs, medicaments and biological substances; Z91.013 Allergy to seafood
CPT/HCPCS: 99283

== ENCOUNTER 2018-05-16 14:13 | Emergency (ER) | payer OTHER ==
[~2018-05-16] VITALS: Ht 160 cm; Wt 90.7 kg
[~2018-05-16 14:13] MED LIST changes: +MELO7.5T29 PO
[2018-05-16] MEDS ORDERED: IPRATRPIUM/ALBUTEROL 0.5/2.5MG 3 ML NEBU. NEB ONE (15:00)
--- NOTE | 2018-05-16 15:16 | PHYS DOC ---
Past Medical History Past Medical History: Asthma, Bronchitis, COPD, Hypertension, Other Additional Past Medical Histor: tendonitis, emphysema Past Surgical History: Tonsillectomy, Other Additional Past Surgical Histo: LEFT ROTATOR CUFF Alcohol Use: None Drug Use: None Adult General Chief Complaint Chief Complaint: ASTHMA HPI HPI Patient is a 57-year-old female who presents with complaint of cough and shortness of breath that is been present for the last day and a half. Patient states that shortness breath is worsened with minimal exertion. She denies any chest pain or fever. Patient does indicate that her cough has been productive of white to yellowish colored sputum. She denies any alleviating factors, stating that she has been using her nebulizer at home without relief. Review of Systems Review of Systems Constitutional: Denies fever or chills [] Respiratory: Complains of cough and shortness of breath [] Cardiovascular: No additional information not addressed in HPI [] GI: Denies abdominal pain, nausea, vomiting or diarrhea [] Integument: Denies rash or skin lesions [] All other systems were reviewed and found to be within normal limits, except as documented in this note. Current Medications Current Medications Current Medications Medications (Trade) Dose Ordered Sig/Rob Start Time Stop Time Status Last Admin Dose Admin Albuterol/ Ipratropium (Duoneb) 3 ml 1X ONCE 05/16/18 15:00 05/16/18 15:01 DC 05/16/18 15:25 3 ML Info (CONTRAST GIVEN -- Rx MONITORING) 1 each PRN DAILY PRN 05/16/18 17:30 05/18/18 17:29 Iohexol (Omnipaque 300 Mg/ml) 100 ml STK-MED ONCE 05/16/18 17:22 05/16/18 17:23 DC Allergies Allergies Allergies Coded Allergies Type Severity Reaction Last Updated Verified cinnamon Allergy Intermediate 11/10/17 Yes shellfish derived Allergy Intermediate 11/10/17 Yes Penicillins Adverse Reaction Severe Swelling 11/10/17 Yes Physical Exam Physical Exam Constitutional: Well developed, well nourished, no acute distress, non-toxic appearance. [] HENT: Normocephalic, atraumatic, bilateral external ears normal, oropharynx moist, no oral exudates, nose normal. [] Eyes: PERRLA, EOMI, conjunctiva normal, no discharge. [] Neck: Normal range of motion, no tenderness, supple. [] Cardiovascular: Tachycardic rate with regular rhythm [] Lungs & Thorax: Fairly good air movement is noted throughout. There are fine rhonchi in the bilateral bases [] Abdomen: Bowel sounds normal, soft, no tenderness. [] Skin: Warm, dry, no erythema, no rash. [] Extremities: No tenderness, no cyanosis, no clubbing, ROM intact, no edema. [] Neurologic: Alert and oriented X 3, no focal deficits noted. [] Current Patient Data Vital Signs Vital Signs Date Time Temp Pulse Resp B/P (MAP) Pulse Ox O2 Delivery O2 Flow Rate FiO2 05/16/18 15:29 Room Air 05/16/18 15:00 98.0 122 20 146/69 (94) 95 98.0 Lab Values Laboratory Tests Test 05/16/18 15:10 05/16/18 15:50 White Blood Count 10.5 x10^3/uL (4.0-11.0) Red Blood Count 4.00 x10^6/uL (3.50-5.40) Hemoglobin 13.2 g/dL (12.0-15.5) Hematocrit 36.9 % (36.0-47.0) Mean Corpuscular Volume 92 fL (79-100) Mean Corpuscular Hemoglobin 33 pg (25-35) Mean Corpuscular Hemoglobin Concent 36 g/dL (31-37) Red Cell Distribution Width 13.0 % (11.5-14.5) Platelet Count 444 x10^3/uL (140-400) H Neutrophils (%) (Auto) 60 % (31-73) Lymphocytes (%) (Auto) 23 % (24-48) L Monocytes (%) (Auto) 8 % (0-9) Eosinophils (%) (Auto) 9 % (0-3) H Basophils (%) (Auto) 1 % (0-3) Neutrophils # (Auto) 6.3 x10^3uL (1.8-7.7) Lymphocytes # (Auto) 2.4 x10^3/uL (1.0-4.8) Monocytes # (Auto) 0.8 x10^3/uL (0.0-1.1) Eosinophils # (Auto) 0.9 x10^3/uL (0.0-0.7) H Basophils # (Auto) 0.1 x10^3/uL (0.0-0.2) Sodium Level 144 mmol/L (136-145) Potassium Level 3.4 mmol/L (3.5-5.1) L Chloride Level 107 mmol/L (98-107) Carbon Dioxide Level 31 mmol/L (21-32) Anion Gap 6 (6-14) Blood Urea Nitrogen 8 mg/dL (7-20) Creatinine 0.8 mg/dL (0.6-1.0) Estimated GFR (Cockcroft-Gault) 88.8 BUN/Creatinine Ratio 10 (6-20) Glucose Level 101 mg/dL (70-99) H Calcium Level 9.4 mg/dL (8.5-10.1) Total Bilirubin 0.2 mg/dL (0.2-1.0) Aspartate Amino Transferase (AST) 20 U/L (15-37) Alanine Aminotransferase (ALT) 26 U/L (14-59) Alkaline Phosphatase 97 U/L (46-116) Troponin I Quantitative < 0.017 ng/mL (0.000-0.055) OG-Ati-Q-Type Natriuretic Peptide 95 pg/mL (0-124) Total Protein 7.4 g/dL (6.4-8.2) Albumin 3.2 g/dL (3.4-5.0) L Albumin/Globulin Ratio 0.8 (1.0-1.7) L Influenza Type A Antigen Negative (NEGATIVE) Influenza Type B Antigen Positive (NEGATIVE) D-Dimer (Deb) 1.62 ug/mlFEU (0.00-0.50) H Laboratory Tests 05/16/18 15:10 Laboratory Tests 05/16/18 15:10 EKG EKG [] Interpretation Time: EKG demonstrates sinus tachycardia with rate of 119. Radiology/Procedures Radiology/Procedures [] Impressions: PROCEDURE: CHEST PA & LATERAL EXAM: Chest, 2 views. HISTORY: Cough. COMPARISON: 04/19/2018 FINDINGS: 2 views of the chest are obtained. There is no infiltrate, pleural effusion or pneumothorax. The heart is normal in size. There are chronic bilateral lateral rib fractures. IMPRESSION: No acute pulmonary finding. Electronically signed by: Veena Carter MD (05/16/2018 4:04 PM) [place] [id number] Examination: CT ANGIOGRAPHY CHEST History: COUGH, SOA, FLU, ELEVATED D DIMER, PRIOR SENT, [id number] 100ML Comparison/Correlation: CTA of the chest 06/01/2017 Findings: Axial images of chest were obtained following IV contrast according to arteriography protocol. Sagittal and coronal reformatted images were provided. MIP images were provided. Pulmonary arterial vasculature is well-opacified with contrast. Evaluation for pulmonary arterial thromboembolic disease is somewhat limited due to respiratory motion. No pulmonary arterial thromboembolic disease is evident. Centrilobular emphysema is present. There is a nodule involving the right upper lung field anteriorly best seen on axial image 55 of series 3 measuring 0.8 cm x 0.4 cm and this is stable. Alternatively, this may represent 2 adjacent smaller nodules. Possibility of punctate calcification involving these nodules is raised. Old bilateral rib fractures are present. No enlarged thoracic lymph nodes in the interval. No pleural or pericardial effusion. Thoracic aorta is unremarkable other than mild calcific involvement. Upper abdominal aortic calcific involvement also is seen. Impression: No pulmonary arterial thromboembolic disease but evaluation is limited due to respiratory motion. Centrilobular emphysema. No suspicious infiltrate. No new pulmonary nodule or mass. No suspicious lymph nodes. Decrease in size of previously described thoracic lymph nodes. Electronically signed by: Marco A Cook MD (05/16/2018 5:53 PM) [facility] Course & Med Decision Making Course & Med Decision Making Pertinent Labs and Imaging studies reviewed. (See chart for details) [] Dragon Disclaimer Dragon Disclaimer This electronic medical record was generated, in whole or in part, using a voice recognition dictation system. Departure Departure Impression: Primary Impression: Influenza B Additional Impression: Acute asthma exacerbation Disposition: 01 HOME, SELF-CARE Condition: STABLE Referrals: SHARAN SEXTON (PCP) Patient Instructions: Asthma, Adult, Influenza, Adult Scripts Guaifenesin/Codeine Phosphate (CHERATUSSIN AC SYRUP) 118 Ml Liquid 5 ML PO PRN Q6HRS PRN for COUGH, #120 ML Prov: PITER SILVERMAN Jr. DO 05/16/18 Methylprednisolone (MEDROL) 4 Mg Tab.ds.pk 1 PKG PO UD, #1 PKG Prov: PITER SILVERMAN Jr. DO 05/16/18 Oseltamivir Phosphate (TAMIFLU) 75 Mg Capsule 1 CAP PO BID, #10 CAP Prov: PITER SILVERMAN Jr. DO 05/16/18 Problem Qualifiers Additional Impression: Acute asthma exacerbation Asthma severity: unspecified severity Asthma persistence: unspecified Qualified Codes: J45.901 - Unspecified asthma with (acute) exacerbation PITER SILVERMAN Jr. DO May 16, 2018 15:16
[2018-05-16 15:29] LABS: BASO # 0.1 x10^3/uL (0.0-0.2); BASO % 1 % (0-3); EOS # 0.9 x10^3/uL (0.0-0.7); EOS % 9 % (0-3); HEMATOCRIT 36.9 % (36.0-47.0); HEMOGLOBIN 13.2 g/dL (12.0-15.5); LYMPH # 2.4 x10^3/uL (1.0-4.8); LYMPH % 23 % (24-48); MEAN CORPUSCULAR HEMOGLOBIN 33 pg (25-35); MEAN CORPUSCULAR HGB CONC 36 g/dL (31-37); MEAN CORPUSCULAR VOLUME 92 fL (79-100); MONO # 0.8 x10^3/uL (0.0-1.1); MONO % 8 % (0-9); NEUT # 6.3 x10^3uL (1.8-7.7); NEUT % 60 % (31-73); PLATELET COUNT 444 x10^3/uL (140-400); WHITE BLOOD COUNT 10.5 x10^3/uL (4.0-11.0)
[2018-05-16 15:47] LABS: CALCIUM 9.4 mg/dL (8.5-10.1); CREATININE 0.8 mg/dL (0.6-1.0); GFR 88.8; POTASSIUM 3.4 mmol/L (3.5-5.1)
[2018-05-16 15:52] LABS: INFLUENZA A PATIENT NEGATIVE (NEGATIVE)
[2018-05-16 15:53] LABS: ALBUMIN 3.2 g/dL (3.4-5.0); ALBUMIN/GLOBULIN RATIO 0.8 (1.0-1.7); TOTAL BILIRUBIN 0.2 mg/dL (0.2-1.0); TOTAL PROTEIN 7.4 g/dL (6.4-8.2)
[2018-05-16 15:56] LABS: INFLUENZA B PATIENT POSITIVE (NEGATIVE)
--- NOTE | 2018-05-16 16:08 | RAD ---
EXAM: Chest, 2 views. HISTORY: Cough. COMPARISON: 04/19/2018 FINDINGS: 2 views of the chest are obtained. There is no infiltrate, pleural effusion or pneumothorax. The heart is normal in size. There are chronic bilateral lateral rib fractures. IMPRESSION: No acute pulmonary finding. Electronically signed by: Veena Carter MD (05/16/2018 4:04 PM) [id number]
[2018-05-16] MEDS ORDERED: IOHEXOL 300 MG/ML 100ML VIAL. ONE (17:22)
[2018-05-16] MEDS ORDERED: IOHEXOL 300 MG/ML 100ML VIAL. IV ONE (17:30)
[2018-05-16] MEDS ORDERED: CONTRAST GIVEN. MC PRN (17:30)
--- NOTE | 2018-05-16 17:58 | RAD ---
Examination: CT ANGIOGRAPHY CHEST History: COUGH, SOA, FLU, ELEVATED D DIMER, PRIOR SENT, [id number] 100ML Comparison/Correlation: CTA of the chest 06/01/2017 Findings: Axial images of chest were obtained following IV contrast according to arteriography protocol. Sagittal and coronal reformatted images were provided. MIP images were provided. Pulmonary arterial vasculature is well-opacified with contrast. Evaluation for pulmonary arterial thromboembolic disease is somewhat limited due to respiratory motion. No pulmonary arterial thromboembolic disease is evident. Centrilobular emphysema is present. There is a nodule involving the right upper lung field anteriorly best seen on axial image 55 of series 3 measuring 0.8 cm x 0.4 cm and this is stable. Alternatively, this may represent 2 adjacent smaller nodules. Possibility of punctate calcification involving these nodules is raised. Old bilateral rib fractures are present. No enlarged thoracic lymph nodes in the interval. No pleural or pericardial effusion. Thoracic aorta is unremarkable other than mild calcific involvement. Upper abdominal aortic calcific involvement also is seen. Impression: No pulmonary arterial thromboembolic disease but evaluation is limited due to respiratory motion. Centrilobular emphysema. No suspicious infiltrate. No new pulmonary nodule or mass. No suspicious lymph nodes. Decrease in size of previously described thoracic lymph nodes. Electronically signed by: Marco A Cook MD (05/16/2018 5:53 PM) [facility]
[2018-05-16 18:00] VITALS: BP 151/73
[2018-05-16] MEDS ORDERED: METH4TAB2 PO (18:12)
[2018-05-16] MEDS ORDERED: OSEL75CA PO (18:12)
[2018-05-16] MEDS ORDERED: GUAI118L20 PO (18:12)
[2018-05-16] MEDS ORDERED: guaiFENesin DM 200MG/20MG 10 ML SYRUP PO STA (18:16)
--- NOTE | 2018-05-17 07:03 | EKG ---
[facility] [address] [place] [address] Test Date: 2018-05-16 Test Time: 14:54:00 Pat Name: ROSA ADAME Department: Room: Gender: F Patient Financial Representative: : 1960 Requested By: PITER SILVERMAN Order Number: [id number] Reading MD: Measurements Intervals [place] Rate: P: UT: QRS: QRSD: T: QT: QTc: Interpretive Statements
== END 2018-05-16 18:29 | disposition home or self-care (01) ==
LOC: ER 14:13
DX: J10.1 Influenza due to other identified influenza virus with other respiratory manifestations (principal); J45.901 Unspecified asthma with (acute) exacerbation; J43.9 Emphysema, unspecified; Z88.0 Allergy status to penicillin; Z91.013 Allergy to seafood; Z91.018 Allergy to other foods
CPT/HCPCS: 36415; 71046; 71275; 80053; 83880; 84484; 85025; 85379; 87804; 93005; 94640; 99284; J7620; Q9967

== ENCOUNTER 2018-05-30 08:19 | Emergency (ER) | payer OTHER ==
[~2018-05-30] VITALS: Ht 162.6 cm; Wt 90.3 kg
[~2018-05-30 08:19] MED LIST changes: +GUAI118L20 PO; +OSEL75CA PO
[2018-05-30] MEDS ORDERED: IPRATRPIUM/ALBUTEROL 0.5/2.5MG 3 ML NEBU. NEB ONE (08:45)
[2018-05-30] MEDS ORDERED: predniSONE 10 MG TABLET PO ONE (08:45)
[2018-05-30 08:46] VITALS: BP 143/65
--- NOTE | 2018-05-30 08:54 | PHYS DOC ---
Past Medical History Past Medical History: Asthma, Bronchitis, COPD, Hypertension, Other Additional Past Medical Histor: tendonitis, emphysema Past Surgical History: Tonsillectomy, Other Additional Past Surgical Histo: LEFT ROTATOR CUFF Alcohol Use: None Drug Use: None Adult General Chief Complaint Chief Complaint: Congestion HPI HPI Patient is a 57 year old who presents with diagnosed with flu the last week. Patient states she has finished the Tamiflu. Patient states that she is still coughing up yellow mucus and having body aches and chest congestion. Review of Systems Review of Systems Constitutional: fever or chills [] Eyes: Denies change in visual acuity, redness, or eye pain [] HENT: nasal congestion or sore throat [] Respiratory: cough or shortness of breath [] Cardiovascular: Mid chest discomfort GI: Denies abdominal pain, nausea, vomiting, bloody stools or diarrhea [] : Denies dysuria or hematuria [] Musculoskeletal: Denies back pain or joint pain [] Integument: Denies rash or skin lesions [] Neurologic: Denies headache, focal weakness or sensory changes [] All other systems were reviewed and found to be within normal limits, except as documented in this note. Current Medications Current Medications Current Medications Medications (Trade) Dose Ordered Sig/Rob Start Time Stop Time Status Last Admin Dose Admin Albuterol/ Ipratropium (Duoneb) 3 ml 1X ONCE 05/30/18 08:45 05/30/18 08:46 DC 05/30/18 08:57 3 ML Prednisone (Prednisone) 50 mg 1X ONCE 05/30/18 08:45 05/30/18 08:46 DC 05/30/18 08:57 50 MG Allergies Allergies Allergies Coded Allergies Type Severity Reaction Last Updated Verified cinnamon Allergy Intermediate 11/10/17 Yes shellfish derived Allergy Intermediate 11/10/17 Yes Physical Exam Physical Exam Constitutional: Well developed, well nourished, no acute distress, non-toxic appearance. [] HENT: Normocephalic, atraumatic, bilateral external ears normal, oropharynx moist, no oral exudates, nose normal. [] Eyes: PERRLA, EOMI, conjunctiva normal, no discharge. [] Neck: Normal range of motion, no tenderness, supple, no stridor. [] Cardiovascular:Heart rate regular rhythm, no murmur [] Lungs & Thorax: Bilateral upper and lower breath sounds inspiratory/expiratory coarse sounds to auscultation [] Abdomen: Bowel sounds normal, soft, no tenderness, no masses, no pulsatile masses. [] Skin: Warm, dry, no erythema, no rash. [] Back: No tenderness, no CVA tenderness. [] Extremities: No tenderness, no cyanosis, no clubbing, ROM intact, no edema. [] Neurologic: Alert and oriented X 3, normal motor function, normal sensory function, no focal deficits noted. [] Psychologic: Affect normal, judgement normal, mood normal. [] Current Patient Data Vital Signs Vital Signs Date Time Temp Pulse Resp B/P (MAP) Pulse Ox O2 Delivery O2 Flow Rate FiO2 05/30/18 08:59 90 Room Air 05/30/18 08:46 116 20 143/65 (91) 05/30/18 08:36 98.0 98.0 EKG EKG [] Radiology/Procedures Radiology/Procedures Chest Xray Impressions: [facility] [address] [place] [address] IMAGING REPORT Signed PATIENT: ROSA ADAME ACCOUNT: [id number] : 1960 LOCATION: ER AGE: 57 SEX: F EXAM STATUS: PRE ER ORD. PHYSICIAN: DOLORES PRAKASH APRN REASON: chest cogestion, soa PROCEDURE: CHEST PA & LATERAL CHEST PA LATERAL CLINICAL INDICATION: PRODUCTIVE COUGH, CHEST CONGESTION, SOA, PATIENT TESTED POSITIVE FOR INFLUENZA B LAST WEEK. COMPARISON: 05/16/2018 FINDINGS: Heart is normal in size. Mild prominence of bronchial markings. No focal consolidation. No pneumothorax or pleural effusion. Visualized bony thorax is within normal limits. IMPRESSION: Findings suggests atypical/viral infection. No focal pneumonia. Electronically signed by: Dave Esparza DO (05/30/2018 8:56 AM) [id number] DICTATED and SIGNED BY: DAVE ESPARZA DO DATE: 05/30/18 0855 Course & Med Decision Making Course & Med Decision Making Patient is a 57 year old who presents with diagnosed with flu the last week. Patient states she has finished the Tamiflu. Patient states that she is still coughing up yellow mucus and having body aches and chest congestion. Upper and lower lung lobes bilaterally have inspiratory and expiratory coarse sounds. Patient states she's been using her inhaler at her nebulizer at home and states she's had little relief. Afebrile the ED. Patient states she's been taking over- the-counter cold medicines. Patient states she has been taking her medicines that are prescribed to her. Abdomen is soft and nontender. Bilateral tympanic some pearly white. Throat is pink without exudates. Alert and oriented. Skin pink warm and dry. Mucous membranes are moist. Patient states mid chest pain that is not radiating when coughing. Chest pain not reproducible with palpation. Patient is given a dose of prednisone and a breathing treatment in the ED. Chest xray shows Findings suggests atypical/viral infection. No focal pneumonia. Patient will be treated with Steroids and a antibiotic. Patient needs to follow-up with her primary care provider as soon as possible. Dragon Disclaimer Dragon Disclaimer This electronic medical record was generated, in whole or in part, using a voice recognition dictation system. Departure Departure Impression: Primary Impression: Respiratory infection Disposition: HOME, SELF-CARE Condition: STABLE Referrals: SHARAN SEXTON (PCP) Patient Instructions: Upper Respiratory Infection, Adult Additional Instructions: Follow-up with her primary care provider next 3 days. Take medications as prescribed. Continue using your inhaler and nebulizers. Scripts Azithromycin (AZITHROMYCIN TABLET) 250 Mg Tablet 1 PKG PO UD, #6 TAB Prov: DOLORES PRAKASH GENERAL CLEANER 05/30/18 Prednisone (PREDNISONE) 50 Mg Tablet 1 TAB PO DAILY, #5 TAB Prov: DOLORES PRAKASH APRN 05/30/18 Attending Signature Attending Signature I have reviewed the PA/CLOTH PIECER's note and plan of care. I was available for consultation as needed during the patient's visit in the emergency department. I agree with the clinical impression, plan, and disposition. DOLORES PRAKASH APRN May 30, 2018 08:54 DIMITRIOS PETER DO May 31, 2018 09:06
--- NOTE | 2018-05-30 09:00 | RAD ---
CHEST PA LATERAL CLINICAL INDICATION: PRODUCTIVE COUGH, CHEST CONGESTION, SOA, PATIENT TESTED POSITIVE FOR INFLUENZA B LAST WEEK. COMPARISON: 05/16/2018 FINDINGS: Heart is normal in size. Mild prominence of bronchial markings. No focal consolidation. No pneumothorax or pleural effusion. Visualized bony thorax is within normal limits. IMPRESSION: Findings suggests atypical/viral infection. No focal pneumonia. Electronically signed by: Dave Esparza DO (05/30/2018 8:56 AM) [id number]
[2018-05-30] MEDS ORDERED: PRED50TA PO (09:12)
[2018-05-30] MEDS ORDERED: AZIT250T6 PO (09:12)
== END 2018-05-30 09:14 | disposition home or self-care (01) ==
LOC: ER 08:19
DX: J98.8 Other specified respiratory disorders (principal); I10 Essential (primary) hypertension; J43.9 Emphysema, unspecified; Z91.018 Allergy to other foods; Z91.013 Allergy to seafood
CPT/HCPCS: 71046; 94640; 99283; J7512; J7620

== ENCOUNTER 2018-06-30 08:12 | Emergency (ER) | payer OTHER ==
[~2018-06-30] VITALS: Ht 160 cm; Wt 90.3 kg
[2018-06-30 08:27] VITALS: BP 142/83
[2018-06-30] MEDS ORDERED: IPRATRPIUM/ALBUTEROL 0.5/2.5MG 3 ML NEBU. NEB ONE (09:00)
[2018-06-30] MEDS ORDERED: predniSONE 10 MG TABLET PO ONE (09:00)
[2018-06-30] MEDS ORDERED: AZIT250T PO (09:23)
[2018-06-30] MEDS ORDERED: PRED50TA PO (09:23)
--- NOTE | 2018-06-30 09:24 | PHYS DOC ---
Past Medical History Past Medical History: Asthma, COPD, Hypertension Additional Past Medical Histor: tendonitis, emphysema (MO URIARTE APRN) Past Surgical History: No Surgical History Additional Past Surgical Histo: LEFT ROTATOR CUFF (MO URIARTE APRN) Alcohol Use: None Drug Use: None (MO URIARTE APRN) Adult General Chief Complaint Chief Complaint: COUGH HPI HPI Patient is a 57 year old female who presents with an exacerbation of her COPD. The patient states that she has wheezing and some shortness of breath. She states that she has been using her at-home inhalers with little relief. She is out of prednisone at home. She states that she does have a productive cough. She denies fever or body aches. (MO URIARTE APRN) Review of Systems Review of Systems Constitutional: Denies fever or chills [] Eyes: Denies change in visual acuity, redness, or eye pain [] HENT: Denies nasal congestion or sore throat [] Respiratory: See history of present illness Cardiovascular: No additional information not addressed in HPI [] GI: Denies abdominal pain, nausea, vomiting, bloody stools or diarrhea [] : Denies dysuria or hematuria [] Musculoskeletal: Denies back pain or joint pain [] Integument: Denies rash or skin lesions [] Neurologic: Denies headache, focal weakness or sensory changes [] Endocrine: Denies polyuria or polydipsia [] All other systems were reviewed and found to be within normal limits, except as documented in this note. (MO URIARTE APRN) Current Medications Current Medications Current Medications Medications (Trade) Dose Ordered Sig/Rob Start Time Stop Time Status Last Admin Dose Admin Albuterol/ Ipratropium (Duoneb) 3 ml 1X ONCE 06/30/18 09:00 06/30/18 09:01 DC 06/30/18 08:40 3 ML Prednisone (Prednisone) 50 mg 1X ONCE 06/30/18 09:00 06/30/18 09:01 DC 06/30/18 09:12 50 MG (THONG GARCIA MD) Allergies Allergies Allergies Coded Allergies Type Severity Reaction Last Updated Verified cinnamon Allergy Intermediate 11/10/17 Yes shellfish derived Allergy Intermediate 11/10/17 Yes (THONG GARCIA MD) Physical Exam Physical Exam Constitutional: Well developed, well nourished, no acute distress, non-toxic appearance. [] HENT: Normocephalic, atraumatic, bilateral external ears normal, oropharynx moist, no oral exudates, nose normal. [] Eyes: PERRLA, EOMI, conjunctiva normal, no discharge. [] Neck: Normal range of motion, no tenderness, supple, no stridor. [] Cardiovascular:Heart rate regular rhythm, no murmur [] Lungs & Thorax: Bilateral breath sounds decreased with wheezing noted Abdomen: Bowel sounds normal, soft, no tenderness, no masses, no pulsatile masses. [] Skin: Warm, dry, no erythema, no rash. [] Back: No tenderness, no CVA tenderness. [] Extremities: No tenderness, no cyanosis, no clubbing, ROM intact, no edema. [] Neurologic: Alert and oriented X 3, normal motor function, normal sensory function, no focal deficits noted. [] Psychologic: Affect normal, judgement normal, mood normal. [] (MO UIRARTE APRN) Current Patient Data Vital Signs Vital Signs Date Time Temp Pulse Resp B/P (MAP) Pulse Ox O2 Delivery O2 Flow Rate FiO2 06/30/18 08:40 98 Room Air 06/30/18 08:27 98.5 108 18 142/83 (102) 98.5 (THONG GARCIA MD) EKG EKG [] (MO URIARTE APRN) Radiology/Procedures Radiology/Procedures [] (MO URIARTE APRN) Course & Med Decision Making Course & Med Decision Making Pertinent Labs and Imaging studies reviewed. (See chart for details) The patient's wheezing has resolved following a DuoNeb treatment and administration of prednisone. She states that she is feeling better. (MO URIARTE APRN) Course & Med Decision Making Staff Physician Addendum: I was working in the ER during the course of this patient's visit. I was available for consultation as needed, but I was not directly involved in the care of this patient. (THONG GARCIA MD) Dragon Disclaimer Dragon Disclaimer This electronic medical record was generated, in whole or in part, using a voice recognition dictation system. (MO URIARTE APRN) Departure Departure Impression: Primary Impression: COPD exacerbation Disposition: HOME, SELF-CARE Condition: STABLE Referrals: SHARAN SEXTON (PCP) Patient Instructions: Chronic Obstructive Pulmonary Disease Exacerbation Additional Instructions: Take medications as directed. Increase fluids and rest. Use your respiratory inhalers as directed at home. Follow up with your primary care provider in 4 days if not improving or return to the emergency department if worsening. Scripts Prednisone (PREDNISONE) 50 Mg Tablet 1 TAB PO DAILY for copd, #5 TAB Prov: MO URIARTE APRN 06/30/18 Azithromycin (ZITHROMAX) 250 Mg Tablet 1 PKG PO UD for respiratory infection, #1 PKG Prov: MO URIARTE APRN 06/30/18 MO URIARTE APRN Jun 30, 2018 09:24 THONG GARCIA MD Jul 01, 2018 07:28
== END 2018-06-30 09:45 | disposition home or self-care (01) ==
LOC: ER 08:12
DX: J44.1 Chronic obstructive pulmonary disease with (acute) exacerbation (principal); I10 Essential (primary) hypertension; J45.909 Unspecified asthma, uncomplicated; Z91.013 Allergy to seafood; Z88.8 Allergy status to other drugs, medicaments and biological substances
CPT/HCPCS: 94640; 99283; J7512; J7620

== ENCOUNTER 2018-08-11 18:16 | Emergency (ER) | payer OTHER ==
[~2018-08-11] VITALS: Ht 162.6 cm; Wt 90.3 kg
--- NOTE | 2018-08-11 18:43 | PHYS DOC ---
Past Medical History Past Medical History: Asthma, COPD, Hypertension Additional Past Medical Histor: tendonitis, emphysema Past Surgical History: No Surgical History Additional Past Surgical Histo: LEFT ROTATOR CUFF Alcohol Use: None Drug Use: None Adult General Chief Complaint Chief Complaint: ASTHMA HPI HPI Patient is a 57-year-old female who presents with complaint of cough and wheezing that started yesterday. Patient states that she has had difficulty sleeping due to the cough. She states that she has a history of asthma and has been using her nebulizer and inhaler quite a bit without improvement in symptoms. She states that she has had some hot and cold spells but is not sure whether or not she has run a fever. Patient states that she is concerned because one of her family members had the flu last week. States that nothing is helping her symptoms. Review of Systems Review of Systems Constitutional: Positive chills [] HENT: Positive congestion without sore throat [] Respiratory: Positive cough without shortness of breath [] Cardiovascular: No additional information not addressed in HPI [] Neurologic: Denies headache, focal weakness or sensory changes [] Allergies Allergies Allergies Coded Allergies Type Severity Reaction Last Updated Verified cinnamon Allergy Intermediate 11/10/17 Yes shellfish derived Allergy Intermediate 11/10/17 Yes Physical Exam Physical Exam Constitutional: Well developed, well nourished, no acute distress, non-toxic appearance. [] HENT: Normocephalic, atraumatic, bilateral external ears normal, oropharynx moist, no oral exudates, nose normal. [] Cardiovascular:Heart rate regular rhythm, no murmur [] Lungs & Thorax: Bilateral breath sounds clear to auscultation [] Extremities: No tenderness, no cyanosis, no clubbing, ROM intact, no edema. [] Neurologic: Alert and oriented X 3, no focal deficits noted. [] Current Patient Data Vital Signs Vital Signs Date Time Temp Pulse Resp B/P (MAP) Pulse Ox O2 Delivery O2 Flow Rate FiO2 08/11/18 18:30 99.0 133 19 115/71 (86) 96 Room Air 99.0 EKG EKG [] Radiology/Procedures Radiology/Procedures [] Impressions: Two-view chest x-ray demonstrates no acute process. Course & Med Decision Making Course & Med Decision Making Pertinent Labs and Imaging studies reviewed. (See chart for details) [] Dragon Disclaimer Dragon Disclaimer This electronic medical record was generated, in whole or in part, using a voice recognition dictation system. Departure Departure Impression: Primary Impression: Acute bronchitis with bronchospasm Disposition: HOME, SELF-CARE Condition: STABLE Referrals: SHARAN SEXTON (PCP) Patient Instructions: Acute Bronchitis, Bronchospasm, Adult Scripts Methylprednisolone (MEDROL) 4 Mg Tab.ds.pk 1 PKG PO UD, #1 PKG Prov: PITER SILVERMAN Jr. DO 08/11/18 Guaifenesin/Codeine Phosphate (CHERATUSSIN AC SYRUP) 118 Ml Liquid 5 ML PO PRN Q6HRS PRN for COUGH, #120 ML Prov: PITER SILVERMAN Jr. DO 08/11/18 Azithromycin (ZITHROMAX) 250 Mg Tablet 1 PKG PO UD, #6 TAB Prov: PITER SILVERMAN Jr. DO 08/11/18 PITER SILVERMAN Jr. DO Aug 11, 2018 18:43
--- NOTE | 2018-08-11 19:30 | RAD ---
CHEST PA LATERAL CLINICAL INDICATION: COUGH COMPARISON: 05/30/2018 FINDINGS: Heart is normal in size. Lungs are clear. No pneumothorax or pleural effusion. Visualized bony thorax within normal limits. Left lateral sixth rib chronic fractures seen. IMPRESSION: No acute pulmonary process. Electronically signed by: Dave Esparza DO (08/11/2018 7:27 PM) [facility]
[2018-08-11 19:35] VITALS: BP 122/78
[2018-08-11] MEDS ORDERED: AZIT250T PO (19:36)
[2018-08-11] MEDS ORDERED: METH4TAB2 PO (19:36)
[2018-08-11] MEDS ORDERED: GUAI118L20 PO (19:36)
== END 2018-08-11 19:40 | disposition home or self-care (01) ==
LOC: ER 18:16
DX: J20.9 Acute bronchitis, unspecified (principal); J44.0 Chronic obstructive pulmonary disease with (acute) lower respiratory infection; I10 Essential (primary) hypertension; Z91.013 Allergy to seafood; Z91.018 Allergy to other foods
CPT/HCPCS: 71046; 99283

== ENCOUNTER 2018-08-13 09:54 | Emergency (ER) | payer OTHER ==
[~2018-08-13] VITALS: Ht 160 cm; Wt 90.3 kg
--- NOTE | 2018-08-13 10:28 | PHYS DOC ---
Past Medical History Past Medical History: Asthma, COPD, Hypertension Additional Past Medical Histor: tendonitis, emphysema Past Surgical History: No Surgical History Additional Past Surgical Histo: LEFT ROTATOR CUFF Alcohol Use: None Drug Use: None Adult General Chief Complaint Chief Complaint: SHORTNESS OF BREATH HPI HPI Patient is a 57 year old female with history of asthma, COPD, hypertension, current smoker, who presents to the ED today complaining of cough or shortness of breath for 3 days. Patient denies any fever. Patient states she was seen in the ED 2 days ago for similar symptoms, she states she was discharged with azithromycin and steroids. She states she's been using them as prescribed. She states she is not feeling any better. She is in the ED with the grand daughter. Review of Systems Review of Systems Constitutional: Denies fever or chills [] Eyes: Denies change in visual acuity, redness, or eye pain [] HENT: Denies nasal congestion or sore throat [] Respiratory: Reports cough and shortness of breath [] Cardiovascular: No additional information not addressed in HPI [] GI: Denies abdominal pain, nausea, vomiting, bloody stools or diarrhea [] : Denies dysuria or hematuria [] Musculoskeletal: Denies back pain or joint pain [] Integument: Denies rash or skin lesions [] Neurologic: Denies headache, focal weakness or sensory changes [] All other systems were reviewed and found to be within normal limits, except as documented in this note. Current Medications Current Medications Current Medications Medications (Trade) Dose Ordered Sig/Rob Start Time Stop Time Status Last Admin Dose Admin Albuterol/ Ipratropium (Duoneb) 3 ml 1X ONCE 08/13/18 10:30 08/13/18 10:31 DC 08/13/18 10:30 3 ML Benzonatate (Tessalon Perle) 100 mg 1X ONCE 08/13/18 10:30 08/13/18 10:31 DC 08/13/18 10:34 100 MG Methylprednisolone Sodium Succinate (SOLU-Medrol 125MG VIAL) 125 mg 1X ONCE 08/13/18 10:30 08/13/18 10:31 DC 08/13/18 10:34 125 MG Allergies Allergies Allergies Coded Allergies Type Severity Reaction Last Updated Verified cinnamon Allergy Intermediate 11/10/17 Yes shellfish derived Allergy Intermediate 11/10/17 Yes Physical Exam Physical Exam Constitutional: Well developed, well nourished, no acute distress, non-toxic appearance. [] HENT: Normocephalic, atraumatic, bilateral external ears normal, oropharynx moist, no oral exudates, nose normal. [] Eyes: PERRLA, EOMI, conjunctiva normal, no discharge. [] Neck: Normal range of motion, no tenderness, supple, no stridor. [] Cardiovascular:Heart rate regular rhythm, no murmur [] Lungs & Thorax: Bilateral breath sounds clear to auscultation [] Abdomen: Bowel sounds normal, soft, no tenderness, no masses, no pulsatile masses. [] Skin: Warm, dry, no erythema, no rash. [] Back: No tenderness, no CVA tenderness. [] Extremities: No tenderness, no cyanosis, no clubbing, ROM intact, no edema. [] Neurologic: Alert and oriented X 3, normal motor function, normal sensory function, no focal deficits noted. [] Psychologic: Affect normal, judgement normal, mood normal. [] Current Patient Data Vital Signs Vital Signs Date Time Temp Pulse Resp B/P (MAP) Pulse Ox O2 Delivery O2 Flow Rate FiO2 08/13/18 11:19 111 34 161/66 (97) 95 Room Air 08/13/18 10:21 98.3 98.3 Lab Values Laboratory Tests Test 08/13/18 10:20 08/13/18 10:40 08/13/18 11:08 White Blood Count 9.3 x10^3/uL (4.0-11.0) Red Blood Count 4.24 x10^6/uL (3.50-5.40) Hemoglobin 13.4 g/dL (12.0-15.5) Hematocrit 38.8 % (36.0-47.0) Mean Corpuscular Volume 92 fL (79-100) Mean Corpuscular Hemoglobin 32 pg (25-35) Mean Corpuscular Hemoglobin Concent 35 g/dL (31-37) Red Cell Distribution Width 13.0 % (11.5-14.5) Platelet Count 323 x10^3/uL (140-400) Neutrophils (%) (Auto) 91 % (31-73) H Lymphocytes (%) (Auto) 6 % (24-48) L Monocytes (%) (Auto) 3 % (0-9) Eosinophils (%) (Auto) 0 % (0-3) Basophils (%) (Auto) 0 % (0-3) Neutrophils # (Auto) 8.5 x10^3uL (1.8-7.7) H Lymphocytes # (Auto) 0.5 x10^3/uL (1.0-4.8) L Monocytes # (Auto) 0.3 x10^3/uL (0.0-1.1) Eosinophils # (Auto) 0.0 x10^3/uL (0.0-0.7) Basophils # (Auto) 0.0 x10^3/uL (0.0-0.2) Segmented Neutrophils % 81 % (35-66) H Band Neutrophils % 14 % (0-9) H Lymphocytes % 4 % (24-48) L Monocytes % 1 % (0-10) Platelet Estimate Adequate (ADEQUATE) Sodium Level 138 mmol/L (136-145) Potassium Level 4.0 mmol/L (3.5-5.1) Chloride Level 102 mmol/L (98-107) Carbon Dioxide Level 26 mmol/L (21-32) Anion Gap 10 (6-14) Blood Urea Nitrogen 8 mg/dL (7-20) Creatinine 0.7 mg/dL (0.6-1.0) Estimated GFR (Cockcroft-Gault) 103.6 BUN/Creatinine Ratio 11 (6-20) Glucose Level 108 mg/dL (70-99) H Lactic Acid Level 1.0 mmol/L (0.4-2.0) Calcium Level 9.3 mg/dL (8.5-10.1) Magnesium Level 2.1 mg/dL (1.8-2.4) Total Bilirubin 0.3 mg/dL (0.2-1.0) Aspartate Amino Transferase (AST) 21 U/L (15-37) Alanine Aminotransferase (ALT) 15 U/L (14-59) Alkaline Phosphatase 96 U/L (46-116) Creatine Kinase 281 U/L (26-192) H Creatine Kinase MB (Mass) 2.1 ng/mL (0.0-3.6) Creatine Kinase MB Relative Index 0.7 % (0-4) Troponin I Quantitative < 0.017 ng/mL (0.000-0.055) JU-Mur-C-Type Natriuretic Peptide 79 pg/mL (0-124) Total Protein 7.6 g/dL (6.4-8.2) Albumin 3.1 g/dL (3.4-5.0) L Albumin/Globulin Ratio 0.7 (1.0-1.7) L Influenza Type A Antigen Negative (NEGATIVE) Influenza Type B Antigen Negative (NEGATIVE) Urine Collection Type Unknown Urine Color Yellow Urine Clarity Clear Urine pH 6.0 Urine Specific [place] 1.010 Urine Protein Negative mg/dL (NEG-TRACE) Urine Glucose (UA) Negative mg/dL (NEG) Urine Ketones (Stick) Negative mg/dL (NEG) Urine Blood Negative (NEG) Urine Nitrite Negative (NEG) Urine Bilirubin Negative (NEG) Urine Urobilinogen Dipstick 0.2 mg/dL (0.2 mg/dL) Urine Leukocyte Esterase Negative (NEG) Urine RBC 0 /HPF (0-2) Urine WBC Occ /HPF (0-4) Urine Squamous Epithelial Cells Mod /LPF Urine Bacteria 0 /HPF (0-FEW) Urine Yeast Present /HPF Urine Opiates Screen Pos (NEG) Urine Methadone Screen Neg (NEG) Urine Barbiturates Neg (NEG) Urine Phencyclidine Screen Neg (NEG) Urine Amphetamine/Methamphetamine Neg (NEG) Urine Benzodiazepines Screen Neg (NEG) Urine Cocaine Screen Neg (NEG) Urine Cannabinoids Screen Neg (NEG) Urine Ethyl Alcohol Neg (NEG) Laboratory Tests 08/13/18 10:20 Laboratory Tests 08/13/18 10:20 EKG EKG [] Radiology/Procedures Radiology/Procedures []PROCEDURE: CHEST PA & LATERAL PA and lateral views of the chest. Comparison: Chest radiograph dated 08/11/2018. Indication: COUGH AND SHORT OF BREATH ONE WEEK Findings: Normal lung volume. No focal airspace disease. Unchanged pulmonary vasculature. No pleural effusion. No pneumothorax. The cardiomediastinal silhouette is normal in appearance. Unchanged atherosclerotic thoracic aorta. No acute osseous abnormality. Remote right rib fracture. Impression: 1. No acute cardiopulmonary process. Electronically signed by: Morris Farah MD (08/13/2018 11:19 AM) [facility] [place] DICTATED and SIGNED BY: MORRIS FARAH MD DATE: 08/13/18 1119 Course & Med Decision Making Course & Med Decision Making Pertinent Labs and Imaging studies reviewed. (See chart for details) This is a 57-year-old female patient with history of COPD, asthma, current smoker, presenting to the ED today complaining of cough or shortness of breath for 3 days, was seen in the ED 2 days ago for the same complaint, discharged with azithromycin, steroids, has been taking them with no relief. She is a current smoker. She was encouraged to consider smoking cessation, she states she is working on it. Troponin is normal, CBC with normal WBC, CMP with no acute findings, chest x- ray is negative. Patient was given a DuoNeb treatment and Solu-Medrol. I went to reevaluate her, she is up sitting watching TV and talking to the granddaughter in no distress. She states she feels better. Discharged patient to home. She still on azithromycin and prednisone encouraged to continue using them. She also has inhalers at home. Encouraged her to continue using them as needed. Recommended she follows up with her PCP in the next 3 days. Her O2 runs between 92% to 98% on room air, patient states this is chronic she states she is supposed to have oxygen for home use prn but she has not set up an appointment with her PCP for this. Encouraged her to consider calling her PCP to set up home oxygen. Dragon Disclaimer Dragon Disclaimer This electronic medical record was generated, in whole or in part, using a voice recognition dictation system. Departure Departure Impression: Primary Impression: COPD exacerbation Additional Impression: Smoking addiction Disposition: 01 HOME, SELF-CARE Condition: STABLE Referrals: SHARAN SEXTON (PCP) Follow-up in the course of this week Patient Instructions: Chronic Obstructive Pulmonary Disease Exacerbation, Smoking Cessation Additional Instructions: You were evaluated in the emergency room for COPD and asthma exacerbation. You are currently on albuterol breathing treatments, prednisone, and azithromycin, continue taking them until completed. Please consider smoking cessation. Please contact your primary care doctor in the course of this week and set up a follow- up appointment. Problem Qualifiers EVIN VALDEZ IT AUDIT MANAGER Aug 13, 2018 10:28
[2018-08-13] MEDS ORDERED: BENZONATATE 100 MG CAPSULE. PO ONE (10:30)
[2018-08-13] MEDS ORDERED: IPRATRPIUM/ALBUTEROL 0.5/2.5MG 3 ML NEBU. NEB ONE (10:30)
[2018-08-13] MEDS ORDERED: methylPREDNISolone SOD SUCC PF 125 MG/2 ML VIAL. IV ONE (10:30)
[2018-08-13 10:39] LABS: BASO % 0 % (0-3); EOS % 0 % (0-3); HEMATOCRIT 38.8 % (36.0-47.0); HEMOGLOBIN 13.4 g/dL (12.0-15.5); LYMPH # 0.5 x10^3/uL (1.0-4.8); LYMPH % 6 % (24-48); MEAN CORPUSCULAR HEMOGLOBIN 32 pg (25-35); MEAN CORPUSCULAR HGB CONC 35 g/dL (31-37); MEAN CORPUSCULAR VOLUME 92 fL (79-100); MONO # 0.3 x10^3/uL (0.0-1.1); MONO % 3 % (0-9); NEUT # 8.5 x10^3uL (1.8-7.7); NEUT % 91 % (31-73); PLATELET COUNT 323 x10^3/uL (140-400); RED BLOOD COUNT 4.24 x10^6/uL (3.50-5.40); WHITE BLOOD COUNT 9.3 x10^3/uL (4.0-11.0)
[2018-08-13 10:50] LABS: CALCIUM 9.3 mg/dL (8.5-10.1); CREATININE 0.7 mg/dL (0.6-1.0); GFR 103.6
[2018-08-13 10:56] LABS: ALBUMIN 3.1 g/dL (3.4-5.0); ALBUMIN/GLOBULIN RATIO 0.7 (1.0-1.7); MAGNESIUM 2.1 mg/dL (1.8-2.4); TOTAL BILIRUBIN 0.3 mg/dL (0.2-1.0); TOTAL PROTEIN 7.6 g/dL (6.4-8.2)
[2018-08-13 11:07] LABS: INFLUENZA A PATIENT NEGATIVE (NEGATIVE); INFLUENZA B PATIENT NEGATIVE (NEGATIVE)
[2018-08-13 11:18] LABS: BILIRUBIN,URINE NEGATIVE (NEG); CLARITY,URINE CLEAR; COLOR,URINE YELLOW; NITRITE,URINE NEGATIVE (NEG); PROTEIN,URINE NEGATIVE (NEG-TRACE); UROBILINOGEN,URINE 0.2 mg/dL (0.2 mg/dL)
--- NOTE | 2018-08-13 11:22 | RAD ---
PA and lateral views of the chest. Comparison: Chest radiograph dated 08/11/2018. Indication: COUGH AND SHORT OF BREATH ONE WEEK Findings: Normal lung volume. No focal airspace disease. Unchanged pulmonary vasculature. No pleural effusion. No pneumothorax. The cardiomediastinal silhouette is normal in appearance. Unchanged atherosclerotic thoracic aorta. No acute osseous abnormality. Remote right rib fracture. Impression: 1. No acute cardiopulmonary process. Electronically signed by: Morris Ochoa MD (08/13/2018 11:19 AM) [facility]
[2018-08-13 11:23] LABS: BARBITURATES NEG (NEG); BENZODIAZEPINES NEG (NEG); CANNABINOIDS NEG (NEG); COCAINE NEG (NEG); METHADONE NEG (NEG); OPIATES POS (NEG); PHENCYCLIDINE NEG (NEG)
[2018-08-13 11:24] LABS: AMPHETAMINE/METHAMPHETAMINE NEG (NEG)
[2018-08-13 11:31] LABS: SQUAMOUS EPITHELIAL CELL,UR MOD /LPF
[2018-08-13 11:32] LABS: RBC,URINE 0 /HPF (0-2); WBC,URINE OCC /HPF (0-4)
[2018-08-13 11:33] LABS: BACTERIA,URINE 0 /HPF (0-FEW); YEAST,URINE PRESENT /HPF
[2018-08-13 11:38] LABS: % BANDS 14 % (0-9); % LYMPHS 4 % (24-48); % MONOS 1 % (0-10); % SEGS 81 % (35-66); PLT ESTIMATE ADEQUATE (ADEQUATE)
[2018-08-13 12:07] VITALS: BP 148/80
--- NOTE | 2018-08-13 16:53 | EKG ---
[facility] [address] [place] [address] Test Date: 2018-08-13 Test Time: 10:04:51 Pat Name: ROSA ADAME Department: Room: Gender: F Vp Scientific Affairs: : 1960 Requested By: EVIN VALDEZ Order Number: [id number] Reading MD: Salvador Charles MD Measurements Intervals [place] Rate: 118 P: 65 SC: 144 QRS: -7 QRSD: 70 T: 58 QT: 302 QTc: 425 Interpretive Statements SINUS TACHYCARDIA Electronically Signed On 08-14-2018 10:18:51 CDT by Salvador Charles MD
== END 2018-08-13 12:10 | disposition home or self-care (01) ==
LOC: ER 09:54
DX: J44.1 Chronic obstructive pulmonary disease with (acute) exacerbation (principal); F17.200 Nicotine dependence, unspecified, uncomplicated; I10 Essential (primary) hypertension; J45.909 Unspecified asthma, uncomplicated; Z91.013 Allergy to seafood; Z91.018 Allergy to other foods
CPT/HCPCS: 36415; 71046; 80053; 80307; 81001; 82553; 83605; 83735; 83880; 84484; 85007; 85025; 87040; 87804; 93005; 94640; 96374; 99284; J2930; J7620

== ENCOUNTER 2018-09-04 10:12 | Emergency (ER) | payer OTHER ==
[~2018-09-04] VITALS: Ht 160 cm; Wt 90.7 kg
[2018-09-04 10:20] VITALS: BP 154/94
[2018-09-04] MEDS ORDERED: PRED50TA PO (10:39)
[2018-09-04] MEDS ORDERED: IPRATRPIUM/ALBUTEROL 0.5/2.5MG 3 ML NEBU. NEB ONE (10:45)
--- NOTE | 2018-09-04 10:59 | PHYS DOC ---
Past Medical History Past Medical History: Asthma, COPD, Hypertension Additional Past Medical Histor: tendonitis, emphysema Past Surgical History: No Surgical History Additional Past Surgical Histo: LEFT ROTATOR CUFF Alcohol Use: None Drug Use: None Adult General Chief Complaint Chief Complaint: SHORTNESS OF BREATH HPI HPI Patient is a 57 year old female referred from urgent care with shortness of breath sat was 92-93 there is a referred here from the [facility] clinic directly to the emergency department she has had shortness of breath she struggles with seasonal allergy she is coughing dry no chest pain no fever no other symptoms tried her albuterol at home with minimal relief Review of Systems Review of Systems Constitutional: Denies fever or chills [] Eyes: Denies change in visual acuity, redness, or eye pain [] HENT: Denies nasal congestion or sore throat [] Respiratory: ] GI: Denies abdominal pain, nausea, vomiting, bloody stools or diarrhea [] : Denies dysuria or hematuria [] Musculoskeletal: Denies back pain or joint pain [] Integument: Denies rash or skin lesions [] All other systems were reviewed and found to be within normal limits, except as documented in this note. Current Medications Current Medications Current Medications Medications (Trade) Dose Ordered Sig/Rob Start Time Stop Time Status Last Admin Dose Admin Albuterol/ Ipratropium (Duoneb) 3 ml 1X ONCE 09/04/18 10:45 09/04/18 10:46 DC 09/04/18 10:39 3 ML Allergies Allergies Allergies Coded Allergies Type Severity Reaction Last Updated Verified cinnamon Allergy Intermediate 11/10/17 Yes shellfish derived Allergy Intermediate 11/10/17 Yes Physical Exam Physical Exam Constitutional: Well developed, well nourished, no acute distress, non-toxic appearance. [] HENT: Normocephalic, atraumatic, bilateral external ears normal, oropharynx moist, no oral exudates, nose normal. [] Eyes: PERRLA, EOMI, conjunctiva normal, no discharge. [] Neck: Normal range of motion, no tenderness, supple, no stridor. [] Cardiovascular:Heart rate regular rhythm, no murmur [] Lungs & Thorax: Reactive cough noted faint wheezing speaking full sentences Abdomen: Bowel sounds normal, soft, no tenderness, no masses, no pulsatile masses. [] Skin: Warm, dry, no erythema, no rash. [] Back: No tenderness, no CVA tenderness. [] Extremities: No tenderness, no cyanosis, no clubbing, ROM intact, no edema. [] Neurologic: Alert and oriented X 3, normal motor function, normal sensory function, no focal deficits noted. [] Psychologic: Affect normal, judgement normal, mood normal. [] Current Patient Data Vital Signs Vital Signs Date Time Temp Pulse Resp B/P (MAP) Pulse Ox O2 Delivery O2 Flow Rate FiO2 09/04/18 10:39 97 Room Air 09/04/18 10:20 98.4 101 20 154/94 (114) 98.4 EKG EKG [] Radiology/Procedures Radiology/Procedures [] Impressions: Chest x-ray negative acute by my read Course & Med Decision Making Course & Med Decision Making Pertinent Labs and Imaging studies reviewed. (See chart for details) []Well-appearing 57-year-old female with known COPD presenting with very likely the same dry reactive cough and wheezing got albuterol felt better chest x-ray negative vitals reassuring probably seasonal allergic disease. Dragon Disclaimer Dragon Disclaimer This electronic medical record was generated, in whole or in part, using a voice recognition dictation system. Departure Departure Impression: Primary Impression: COPD exacerbation Disposition: 01 HOME, SELF-CARE Condition: STABLE Referrals: SHARAN SEXTON (PCP) Patient Instructions: Chronic Obstructive Pulmonary Disease Exacerbation, [id number]-Mogy Scripts Prednisone (PREDNISONE) 50 Mg Tablet 1 TAB PO DAILY, #5 TAB Prov: THONG GARCIA MD 09/04/18 THONG GARCIA MD Sep 04, 2018 10:59
--- NOTE | 2018-09-04 11:05 | RAD ---
PORTABLE CHEST 1V History: Shortness of air, cough Comparison: August 13, 2018 Findings: Single view of the chest is submitted. There is no infiltrate, pneumothorax, or effusion. The pericardial cardiac silhouette is within normal limits in size. There is atherosclerotic calcification near aortic arch. There is again old displaced left lateral sixth rib fracture. Impression: 1. There is no radiographic evidence of acute cardiopulmonary disease. Electronically signed by: Richard Jacobsen MD (09/04/2018 11:02 AM) [id number]
== END 2018-09-04 10:59 | disposition home or self-care (01) ==
LOC: ER 10:12
DX: J44.1 Chronic obstructive pulmonary disease with (acute) exacerbation (principal); I10 Essential (primary) hypertension; Z91.013 Allergy to seafood; Z91.018 Allergy to other foods
CPT/HCPCS: 71045; 94640; 99283; J7620

== ENCOUNTER 2018-10-07 09:37 | Emergency (ER) | payer OTHER ==
[~2018-10-07] VITALS: Ht 160 cm; Wt 93.0 kg
[2018-10-07] MEDS ORDERED: IPRATRPIUM/ALBUTEROL 0.5/2.5MG 3 ML NEBU. NEB ONE (10:00)
[2018-10-07] MEDS ORDERED: methylPREDNISolone SOD SUCC PF 125 MG/2 ML VIAL. IM ONE (10:00)
--- NOTE | 2018-10-07 10:23 | RAD ---
Chest, PA and Lateral: Technique: PA and lateral views of the chest were obtained. History: Cough. Comparison: 09/04/2018. Findings: The heart and pulmonary vasculature appear within normal limits. The lungs are clear. The pleural margins are clear. Impression: No acute chest process is seen. Electronically signed by: Chema Bhakta MD (10/07/2018 10:20 AM) [facility] [place]
--- NOTE | 2018-10-07 10:31 | PHYS DOC ---
Past Medical History Past Medical History: Asthma, COPD, Hypertension Additional Past Medical Histor: tendonitis, emphysema Past Surgical History: No Surgical History Additional Past Surgical Histo: LEFT ROTATOR CUFF Alcohol Use: None Drug Use: None Adult General Chief Complaint Chief Complaint: ASTHMA HPI HPI Patient is a 57 year old female with history of asthma, COPD, currently a smoker, hypertension, who presents to the ED today complaining of shortness of breath for 2 days. Patient states she has tried her inhaler with no relief. De nies any fever. She is well known to this ED for COPD exacerbation and asthma. Most of her symptoms are triggered by seasonal allergies. Review of Systems Review of Systems Constitutional: Denies fever or chills [] Eyes: Denies change in visual acuity, redness, or eye pain [] HENT: Denies nasal congestion or sore throat [] Respiratory: Reports shortness of breath. Denies cough Cardiovascular: No additional information not addressed in HPI [] GI: Denies abdominal pain, nausea, vomiting, bloody stools or diarrhea [] : Denies dysuria or hematuria [] Musculoskeletal: Denies back pain or joint pain [] Integument: Denies rash or skin lesions [] Neurologic: Denies headache, focal weakness or sensory changes [] All other systems were reviewed and found to be within normal limits, except as documented in this note. Current Medications Current Medications Current Medications Medications (Trade) Dose Ordered Sig/Rob Start Time Stop Time Status Last Admin Dose Admin Albuterol/ Ipratropium (Duoneb) 3 ml 1X ONCE 10/07/18 10:00 10/07/18 10:01 DC 10/07/18 10:22 3 ML Methylprednisolone Sodium Succinate (SOLU-Medrol 125MG VIAL) 125 mg 1X ONCE 10/07/18 10:00 10/07/18 10:01 DC 10/07/18 10:16 125 MG Allergies Allergies Allergies Coded Allergies Type Severity Reaction Last Updated Verified cinnamon Allergy Intermediate 11/10/17 Yes shellfish derived Allergy Intermediate 11/10/17 Yes Physical Exam Physical Exam Constitutional: Well developed, well nourished, no acute distress, non-toxic appearance. [] HENT: Normocephalic, atraumatic, bilateral external ears normal, oropharynx moist, no oral exudates, nose normal. [] Eyes: PERRLA, EOMI, conjunctiva normal, no discharge. [] Neck: Normal range of motion, no tenderness, supple, no stridor. [] Cardiovascular:Heart rate regular rhythm, no murmur [] Lungs & Thorax: Slight wheezing to posterior lung bases. Abdomen: Bowel sounds normal, soft, no tenderness, no masses, no pulsatile masses. [] Skin: Warm, dry, no erythema, no rash. [] Back: No tenderness, no CVA tenderness. [] Extremities: No tenderness, no cyanosis, no clubbing, ROM intact, no edema. [] Neurologic: Alert and oriented X 3, normal motor function, normal sensory function, no focal deficits noted. [] Psychologic: Affect normal, judgement normal, mood normal. [] Current Patient Data Vital Signs Vital Signs Date Time Temp Pulse Resp B/P (MAP) Pulse Ox O2 Delivery O2 Flow Rate FiO2 10/07/18 10:23 96 Room Air 10/07/18 09:45 98.5 20 125/71 (89) 98.5 EKG EKG [] Radiology/Procedures Radiology/Procedures []PROCEDURE: CHEST PA & LATERAL Chest, PA and Lateral: Technique: PA and lateral views of the chest were obtained. History: Cough. Comparison: 09/04/2018. Findings: The heart and pulmonary vasculature appear within normal limits. The lungs are clear. The pleural margins are clear. Impression: No acute chest process is seen. Electronically signed by: Chema Bhakta MD (10/07/2018 10:20 AM) [facility] DICTATED and SIGNED BY: CHEMA BHAKTA MD DATE: 10/07/18 1020 Course & Med Decision Making Course & Med Decision Making Pertinent Labs and Imaging studies reviewed. (See chart for details) This is a 57-year-old female patient presenting to the ED today with complaints of shortness of breath for 2 days. Patient has history of asthma and COPD. Chest x-ray interpreted by radiologist as negative for any acute findings. Patient was given a DuoNeb treatment and Solu-Medrol. Her lungs have cleared up, O2 sats at 97% on room air. D/c on albuterol inhaler, and prednisone. Encouraged patient to consider smoking cessation. Follow-up with primary care doctor next week. Dragon Disclaimer Dragon Disclaimer This electronic medical record was generated, in whole or in part, using a voice recognition dictation system. Departure Departure Impression: Primary Impression: COPD exacerbation Additional Impression: Smoking addiction Disposition: 01 HOME, SELF-CARE Condition: STABLE Referrals: SHARAN SEXTON (PCP) follow up in 1 week Patient Instructions: Chronic Obstructive Pulmonary Disease Exacerbation Additional Instructions: You were evaluated in the emergency room for COPD exacerbation. Consider smoking cessation. Take the prescribed medications as ordered. Follow-up with your doctor next week. Come back to the ED symptoms worsen. Scripts Benzonatate (TESSALON PERLE) 100 Mg Capsule 1 CAP PO TID, #30 CAP Prov: EVIN VALDEZ APRN 10/07/18 Prednisone (PREDNISONE) 50 Mg Tablet 1 TAB PO DAILY, #5 TAB Prov: EVIN VALDEZ APRN 10/07/18 Albuterol Sulfate (Proair Hfa) 8.5 Gm Hfa.aer.ad 1 PUFF INH PRN Q6HRS PRN for SHORTNESS OF BREATH, #1 INHALER Prov: EVIN VALDEZ APRN 10/07/18 Problem Qualifiers EVIN VALDEZ APRN Oct 07, 2018 10:31
[2018-10-07] MEDS ORDERED: PRED50TA PO (10:40)
[2018-10-07] MEDS ORDERED: ALBU2.5V8 INH (10:40)
[2018-10-07 10:42] VITALS: BP 135/73
[2018-10-07] MEDS ORDERED: BENZ100C PO (10:54)
== END 2018-10-07 10:57 | disposition home or self-care (01) ==
LOC: ER 09:37
DX: J44.1 Chronic obstructive pulmonary disease with (acute) exacerbation (principal); F17.200 Nicotine dependence, unspecified, uncomplicated; I10 Essential (primary) hypertension; Z91.013 Allergy to seafood; Z91.018 Allergy to other foods
CPT/HCPCS: 71046; 94640; 96372; 99284; J2930; J7620

== ENCOUNTER 2018-12-09 21:28 | Emergency (ER) | payer OTHER ==
[~2018-12-09] VITALS: Ht 160 cm; Wt 90.7 kg
[~2018-12-09 21:28] MED LIST changes: +BENZ100C PO
[2018-12-09 21:31] VITALS: BP 132/61
[2018-12-09] MEDS ORDERED: DEXAMETHASONE 4 MG TABLET PO ONE (22:00)
--- NOTE | 2018-12-09 22:03 | RAD ---
Exam: Chest 2 views INDICATION: Cough TECHNIQUE: Frontal and lateral views the chest Comparisons: October 07, 2018 FINDINGS: The cardiomediastinal silhouette and pulmonary vessels are within normal limits. The lung and pleural spaces are clear. IMPRESSION: No acute cardiopulmonary process. Electronically signed by: Lore Hernandez MD (12/09/2018 10:00 PM) [facility]
[2018-12-09] MEDS ORDERED: BENZ100C PO (22:07)
[2018-12-09] MEDS ORDERED: PRED20TA PO (22:07)
[2018-12-09] MEDS ORDERED: ALBU2.5V8 INH (22:07)
--- NOTE | 2018-12-09 22:08 | PHYS DOC ---
Past Medical History Past Medical History: Asthma, Bronchitis, COPD, Hypertension Additional Past Medical Histor: tendonitis, emphysema Past Surgical History: Tonsillectomy, Other Additional Past Surgical Histo: RIGHT ARM Smoking: Cigarettes Additional Information: 3-4 CIGS/DAY Alcohol Use: None Drug Use: None Adult General Chief Complaint Chief Complaint: COUGH HPI HPI 58-year-old female presents with report of dyspnea and wheezing consistent for her known COPD and asthma. Patient is well-known to the emergency department and was last seen 2 months ago for same. Patient reports she continues to smoke but is trying to quit. Denies fever or chills. Denies known sick contacts. Patient does report some increased nasal congestion and pressure behind her ears. Denies known trauma. Patient reports she thinks the pollen in the air and change in weather triggered her exacerbation today. Review of Systems Review of Systems Constitutional: Denies fever or chills Eyes: Denies redness or eye pain HENT: Reports nasal congestion and ear pressure Respiratory: Reports cough and wheezing; denies shortness of breath Cardiovascular: Denies chest pain or palpitations GI: Denies abdominal pain, nausea, or vomiting : Denies dysuria or hematuria Musculoskeletal: Denies back pain or joint pain Integument: Denies rash or skin lesions Neurologic: Denies headache, focal weakness or sensory changes Complete systems were reviewed and found to be within normal limits, except as documented in this note. Current Medications Current Medications Current Medications Medications (Trade) Dose Ordered Sig/Rob Start Time Stop Time Status Last Admin Dose Admin Albuterol/ Ipratropium (Duoneb) 3 ml 1X ONCE 12/09/18 22:15 12/09/18 22:16 Dexamethasone (Decadron) 10 mg 1X ONCE 12/09/18 22:00 12/09/18 22:01 12/09/18 21:51 10 MG Allergies Allergies Allergies Coded Allergies Type Severity Reaction Last Updated Verified cinnamon Allergy Intermediate 11/10/17 Yes shellfish derived Allergy Intermediate 11/10/17 Yes Physical Exam Physical Exam Constitutional: Well developed, well nourished, no acute distress, non-toxic appearance HENT: Normocephalic, atraumatic, oropharynx moist, TM dull without significant erythema Eyes: Conjunctiva normal, no discharge Neck: Normal range of motion, no tenderness, supple Cardiovascular: Heart rate normal, regular rhythm Lungs & Thorax: Bilateral breath sounds equal with some expiratory wheezing, no distress Abdomen: Soft, no tenderness Skin: Warm, dry, no erythema, no rash Extremities: No tenderness, ROM intact, no edema Neurologic: Alert and oriented X 3, no focal deficits noted Psychologic: Affect normal, judgement normal Current Patient Data Vital Signs Vital Signs Date Time Temp Pulse Resp B/P (MAP) Pulse Ox O2 Delivery O2 Flow Rate FiO2 12/09/18 21:31 98.6 109 21 132/61 (84) 98 Room Air 98.6 EKG EKG [] Radiology/Procedures Radiology/Procedures PROCEDURE: CHEST PA & LATERAL Exam: Chest 2 views INDICATION: Cough TECHNIQUE: Frontal and lateral views the chest Comparisons: October 07, 2018 FINDINGS: The cardiomediastinal silhouette and pulmonary vessels are within normal limits. The lung and pleural spaces are clear. IMPRESSION: No acute cardiopulmonary process. Electronically signed by: Lore Hernandez MD (12/09/2018 10:00 PM) [facility] Course & Med Decision Making Course & Med Decision Making Pertinent Imaging studies reviewed. (See chart for details) Patient presents with history of present illness and physical exam consistent for COPD exacerbation. Patient is afebrile. Oxygen saturation normal on room air. Respiratory nebs provided as well as an oral steroid. Chest x-ray without acute process. Patient stable for discharge with outpatient follow-up with PCP. Discussed findings and plan with patient, who acknowledges understanding and agreement. Dragon Disclaimer Dragon Disclaimer This electronic medical record was generated, in whole or in part, using a voice recognition dictation system. Departure Departure Impression: Primary Impression: COPD exacerbation Disposition: 01 HOME, SELF-CARE Condition: STABLE Referrals: SHARAN SEXTON (PCP) SHAY BROWNLEE MD Patient Instructions: Chronic Obstructive Pulmonary Disease Exacerbation, [id number] Scripts Benzonatate (TESSALON PERLE) 100 Mg Capsule 1 CAP PO TID PRN for COUGH, #21 CAP Prov: DIMITRIOS PETER DO 12/09/18 Albuterol Sulfate (PROAIR HFA INHALER) 8.5 Gm Hfa.aer.ad 1 PUFF INH PRN Q6HRS PRN for WHEEZING, #1 INHALER 0 Refills Prov: DIMITRIOS PETER DO 12/09/18 Prednisone (PREDNISONE) 20 Mg Tablet 2 TAB PO DAILY, #8 TAB Start this prescription tomorrow, Tuesday12/10/18 Prov: DIMITRIOS PETER DO 12/09/18 DIMITRIOS PETER DO Dec 09, 2018 22:08
[2018-12-09] MEDS ORDERED: IPRATRPIUM/ALBUTEROL 0.5/2.5MG 3 ML NEBU. NEB ONE (22:15)
== END 2018-12-09 22:30 | disposition home or self-care (01) ==
LOC: ER 21:28
DX: J44.1 Chronic obstructive pulmonary disease with (acute) exacerbation (principal); I10 Essential (primary) hypertension; F17.210 Nicotine dependence, cigarettes, uncomplicated; Z91.013 Allergy to seafood; Z91.018 Allergy to other foods
CPT/HCPCS: 71046; 94640; 99284; J7620; J8540

== ENCOUNTER 2018-12-31 04:15 | Emergency (ER) | payer OTHER ==
[~2018-12-31] VITALS: Ht 160 cm; Wt 95.3 kg
[2018-12-31 04:35] VITALS: BP 116/68
[2018-12-31] MEDS ORDERED: predniSONE 10 MG TABLET PO ONE (04:45)
[2018-12-31] MEDS ORDERED: IPRATRPIUM/ALBUTEROL 0.5/2.5MG 3 ML NEBU. NEB ONE (04:45)
[2018-12-31] MEDS ORDERED: DOXY100T PO (04:48)
[2018-12-31] MEDS ORDERED: PRED50TA PO (04:48)
--- NOTE | 2018-12-31 04:57 | PHYS DOC ---
Past Medical History Past Medical History: Asthma, Bronchitis, COPD, Hypertension Additional Past Medical Histor: tendonitis, emphysema Past Surgical History: Tonsillectomy, Other Additional Past Surgical Histo: RIGHT ARM Alcohol Use: None Drug Use: None Adult General Chief Complaint Chief Complaint: SHORTNESS OF BREATH [facility] HPI Patient is a 58 year old f with cc of sob x three days, similar to multiple prior copd flareups she tells me also she wants me to look at a wart on her foot she notes change in weather and allergies as primary driving factor of her exacerbation chest tightness with coughing only no anginal symptoms no fever she is coughing up productive cough yellow sputum noted. Review of Systems Review of Systems Constitutional: Denies fever or chills [] Eyes: Denies change in visual acuity, redness, or eye pain [] HENT: Denies nasal congestion or sore throat [] Respiratory: Denies cough or shortness of breath [] Cardiovascular: No additional information not addressed in HPI [] GI: Denies abdominal pain, nausea, vomiting, bloody stools or diarrhea [] : Denies dysuria or hematuria [] Musculoskeletal: Denies back pain or joint pain [] Integument: Denies rash or skin lesions [] Neurologic: Denies headache, focal weakness or sensory changes [] Endocrine: Denies polyuria or polydipsia [] All other systems were reviewed and found to be within normal limits, except as documented in this note. Current Medications Current Medications Current Medications Medications (Trade) Dose Ordered Sig/Rob Start Time Stop Time Status Last Admin Dose Admin Albuterol/ Ipratropium (Duoneb) 3 ml 1X ONCE 12/31/18 04:45 12/31/18 04:46 DC Prednisone (Prednisone) 50 mg 1X ONCE 12/31/18 04:45 12/31/18 04:46 DC Allergies Allergies Allergies Coded Allergies Type Severity Reaction Last Updated Verified cinnamon Allergy Intermediate 11/10/17 Yes shellfish derived Allergy Intermediate 11/10/17 Yes Physical Exam Physical Exam Constitutional: Well developed, well nourished, no acute distress, non-toxic appearance. [] HENT: Normocephalic, atraumatic, bilateral external ears normal, oropharynx moist, no oral exudates, nose normal. [] Eyes: PERRLA, EOMI, conjunctiva normal, no discharge. [] Neck: Normal range of motion, no tenderness, supple, no stridor. [] Cardiovascular:Heart rate regular rhythm, no murmur [] Lungs & Thorax: Bfaint wheeze with cough noted. Abdomen: Bowel sounds normal, soft, no tenderness, no masses, no pulsatile masses. [] Skin: Warm, dry, no erythema, no rash. [] Back: No tenderness, no CVA tenderness. [] Extremities: No tenderness, no cyanosis, no clubbing, ROM intact, no edema. [] Neurologic: Alert and oriented X 3, normal motor function, normal sensory function, no focal deficits noted. [] Psychologic: Affect normal, judgement normal, mood normal. [] Current Patient Data Vital Signs Vital Signs Date Time Temp Pulse Resp B/P (MAP) Pulse Ox O2 Delivery O2 Flow Rate FiO2 12/31/18 04:26 97.9 110 19 116/68 (84) 97 Room Air 97.9 EKG EKG []sinus tach rate 109 no ischemic changes pt has been using albuterol at home likely etiology of mild tachcyardia Radiology/Procedures Radiology/Procedures [] Impressions: cxr neg acute my read. final read pedning. looks overall similar to prior Course & Med Decision Making Course & Med Decision Making Pertinent Labs and Imaging studies reviewed. (See chart for details) []58 yo f well known to this ed p/w cough yellow sputum sob mild wheeze on exam normal sat c/w prior presentations mild to moderate copd exacerbation try prednisone, doxy reassurance provided. Dragon Disclaimer Dragon Disclaimer This electronic medical record was generated, in whole or in part, using a voice recognition dictation system. Departure Departure Impression: Primary Impression: COPD exacerbation Disposition: 01 HOME, SELF-CARE Condition: STABLE Referrals: SHARAN SEXTON (PCP) Patient Instructions: Chronic Obstructive Pulmonary Disease Exacerbation, Easy- to-Read Scripts Prednisone (PREDNISONE) 50 Mg Tablet 1 TAB PO DAILY, #5 TAB Prov: THONG GARCIA MD 12/31/18 Doxycycline Hyclate (DOXYCYCLINE HYCLATE) 100 Mg Tablet 1 TAB PO BID, #14 TAB Prov: THONG GARCIA MD 12/31/18 THONG GARCIA MD Dec 31, 2018 04:57
--- NOTE | 2018-12-31 07:56 | RAD ---
EXAM: CHEST 1 VIEW History: Shortness of breath COMPARISON: 12/09/2018 TECHNIQUE: Single portable radiograph of the chest FINDINGS: The cardiac silhouette is unremarkable. The lungs are clear bilaterally. The costophrenic sulci are clear and well demarcated. IMPRESSION: No radiographic evidence of an acute cardiopulmonary process. Electronically signed by: Chema Bhakta MD (12/31/2018 7:53 AM) [facility]
--- NOTE | 2018-12-31 10:28 | EKG ---
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
== END 2018-12-31 05:30 | disposition home or self-care (01) ==
LOC: ER 04:15
DX: J44.1 Chronic obstructive pulmonary disease with (acute) exacerbation (principal); Z90.89 Acquired absence of other organs; I10 Essential (primary) hypertension; Z91.013 Allergy to seafood; Z91.018 Allergy to other foods
CPT/HCPCS: 71045; 93005; 94640; 99284; J7512; J7620

== ENCOUNTER → 2019-01-11 | Outpatient (CLI) | payer OTHER ==
[2018-12-31 04:35] VITALS: BP 116/68
--- NOTE | 2019-01-11 16:07 | RAD ---
EXAM: 3 views right foot DATE: 01/11/2019 12:00 AM INDICATION: Right foot pain, evaluate for foreign body COMPARISON: No Prior FINDINGS: Soft tissue swelling about the forefoot. No definite retained radiopaque foreign body. Calcaneal enthesopathy. No evidence of acute fracture or dislocation. IMPRESSION: 1. No evidence for retained radiopaque foreign body. 2. No acute fracture or dislocation. Electronically signed by: Kleber Bowen MD (01/11/2019 4:05 PM) [facility]
== END | disposition home or self-care (01) ==
LOC: RAD 08:41
PROVIDERS: ATTEND Surgery
DX: M79.89 Other specified soft tissue disorders (principal); M77.31 Calcaneal spur, right foot
CPT/HCPCS: 73630

== ENCOUNTER 2019-02-08 08:36 | Emergency (ER) | payer OTHER ==
[~2019-02-08] VITALS: Ht 160 cm; Wt 99.8 kg
[2019-02-08] MEDS ORDERED: predniSONE 20 MG TABLET PO ONE (09:30)
[2019-02-08] MEDS ORDERED: IPRATROPIUM BROMIDE 0.5 MG/2.5 ML NEBU. NEB ONE (09:30)
[2019-02-08] MEDS ORDERED: ALBUTEROL SULFATE 2.5 MG/3 ML NEBU. CONT NEB ONE (09:30)
[2019-02-08] MEDS ORDERED: ALBU2.5V5 NEB (11:42)
[2019-02-08] MEDS ORDERED: PRED50TA PO (11:42)
[2019-02-08] MEDS ORDERED: FEXO180T81 PO (11:42)
[2019-02-08] MEDS ORDERED: ALBU2.5V8 IH (11:42)
--- NOTE | 2019-02-08 11:42 | PHYS DOC ---
Past Medical History Past Medical History: Asthma, Bronchitis, COPD, Hypertension Additional Past Medical Histor: tendonitis, emphysema Past Surgical History: Tonsillectomy, Other Additional Past Surgical Histo: RIGHT ARM Alcohol Use: None Drug Use: None Adult General Chief Complaint Chief Complaint: ASTHMA HPI HPI Patient is a 58 year old AA female with history of asthma and COPD who presents acute asthma exacerbation. Patient reports shortness breath and wheezing starting 2 days ago. Patient attributes symptoms to recent change in weather and seasonal allergies. Patient is also a current smoker. She has been treating her asthma with albuterol to 3 breathing treatments daily. She is not currently on asthma medication. Denies fevers chills, nausea vomiting or sweats. Reports chest tightness denies chest pain. Cough is productive with clear sputum. No other acute symptoms or complaints.[] Review of Systems Review of Systems ROS as per HPI] All other systems were reviewed and found to be within normal limits, except as documented in this note. Current Medications Current Medications Current Medications Medications (Trade) Dose Ordered Sig/Rob Start Time Stop Time Status Last Admin Dose Admin Albuterol Sulfate (Ventolin Neb Soln) 10 mg 1X ONCE 02/08/19 09:30 02/08/19 09:31 DC 02/08/19 09:47 10 MG Ipratropium [place] (Atrovent) 1 mg 1X ONCE 02/08/19 09:30 02/08/19 09:31 DC 02/08/19 09:48 1 MG Prednisone (Prednisone) 60 mg 1X ONCE 02/08/19 09:30 02/08/19 09:31 DC 02/08/19 09:43 60 MG Allergies Allergies Allergies Coded Allergies Type Severity Reaction Last Updated Verified cinnamon Allergy Intermediate 11/10/17 Yes shellfish derived Allergy Intermediate 11/10/17 Yes Physical Exam Physical Exam Constitutional: Well developed, well nourished, no acute distress, non-toxic appearance. [] HENT: Normocephalic, atraumatic, bilateral external ears normal, oropharynx moist, no oral exudates, nose normal. [] Eyes: PERRLA, EOMI, conjunctiva normal, no discharge. [] Neck: Normal range of motion, no tenderness, supple,. [] Cardiovascular:Heart rate regular rhythm, no murmur [] Lungs & Thorax: Respirations nonlabored, diminished breath sounds bilaterally. [] Abdomen: Bowel sounds normal, soft, no tenderness. [] Skin: Warm, dry, no erythema, no rash. [] Back: No tenderness. [] Extremities: No tenderness, n no edema. [] Neurologic: Alert and oriented X 3, normal motor function, normal sensory function, no focal deficits noted. [] Psychologic: Affect normal, judgement normal, mood normal. [] Current Patient Data Vital Signs Vital Signs Date Time Temp Pulse Resp B/P (MAP) Pulse Ox O2 Delivery O2 Flow Rate FiO2 02/08/19 10:44 82 17 134/68 (90) 100 Aerosol Mask 02/08/19 08:46 98.0 98.0 EKG EKG [] Radiology/Procedures Radiology/Procedures [] Course & Med Decision Making Course & Med Decision Making Pertinent Labs and Imaging studies reviewed. (See chart for details) [Symptoms improved significantly with tx. Will tx with close PCP. Return pr ecautions reviewed. ] Dragon Disclaimer Dragon Disclaimer This electronic medical record was generated, in whole or in part, using a voice recognition dictation system. Departure Departure Impression: Primary Impression: Asthma exacerbation Additional Impression: Seasonal allergies Disposition: 01 HOME, SELF-CARE Condition: GOOD Referrals: SHARAN SEXTON (PCP) Patient Instructions: Allergic Rhinitis, Asthma, Acute Bronchospasm Additional Instructions: Please take newly prescribed medications as directed and follow-up with your PCP in the next 2-3 days for reevaluation. Please enroll in smoking cessation program. Return to the ED if new or worsening symptoms. Scripts Albuterol Sulfate (ALBUTEROL SULFATE NEB SOLN) 2.5 Mg/3 Ml Vial.neb 1 VIAL NEB PRN Q4HRS, #50 VIAL Prov: MARK JAMES DO 02/08/19 Albuterol Sulfate (PROVENTIL HFA INHALER) 6.7 Gm Hfa.aer.ad 1 PUFF IH PRN Q4HRS PRN for FOR ASTHMA, #1 INHALER 0 Refills Prov: MARK JAMES DO 02/08/19 Fexofenadine Hcl (HOMA ALLERGY) 180 Mg Tablet 1 TAB PO DAILY, #30 TAB 2 Refills Prov: MARK JAMES DO 02/08/19 Prednisone (PREDNISONE) 50 Mg Tablet 1 TAB PO DAILY, #5 TAB Prov: MARK JAMES DO 02/08/19 Problem Qualifiers MARK JAMES DO Feb 08, 2019 11:42
[2019-02-08 11:55] VITALS: BP 134/65
== END 2019-02-08 12:05 | disposition home or self-care (01) ==
LOC: ER 08:36
DX: J44.9 Chronic obstructive pulmonary disease, unspecified (principal); J45.901 Unspecified asthma with (acute) exacerbation; I10 Essential (primary) hypertension; Z91.013 Allergy to seafood; Z91.018 Allergy to other foods
CPT/HCPCS: 94644; 99285; J7512; J7613; J7644

== ENCOUNTER → 2019-02-22 | Outpatient (CLI) | payer OTHER ==
[2019-02-08 11:55] VITALS: BP 134/65
[~2019-02-22] MED LIST changes: +FEXO180T81 PO
--- NOTE | 2019-02-22 19:53 | RAD ---
PA and lateral chest x-ray HISTORY: Chest pain and cough, history of bronchitis. COMPARISON: Chest x-ray December 31, 2018. FINDINGS: Heart size normal. Aortic arch calcified plaque. No pneumothorax, pulmonary opacities or pleural effusions. 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 IMPRESSION: No acute process. Electronically signed by: Luis Enrique Jarvis MD (02/22/2019 7:50 PM) [facility]
== END | disposition home or self-care (01) ==
LOC: RAD 19:16
PROVIDERS: ATTEND Surgery
DX: J40 Bronchitis, not specified as acute or chronic (principal); I70.0 Atherosclerosis of aorta; S22.32XK Fracture of one rib, left side, subsequent encounter for fracture with nonunion; X58.XXXD Exposure to other specified factors, subsequent encounter
CPT/HCPCS: 71046

== ENCOUNTER 2019-05-10 12:12 | Emergency (ER) | payer BC, OTHER ==
[~2019-05-10] VITALS: Ht 160 cm; Wt 103.0 kg
[~2019-05-10 12:12] MED LIST changes: +PROVENTIL HFA6.7 GM IH
[2019-05-10 12:29] VITALS: BP 143/64
[2019-05-10] MEDS ORDERED: DEXAMETHASONE 4 MG TABLET PO STA (12:29)
[2019-05-10] MEDS ORDERED: IPRATRPIUM/ALBUTEROL 0.5/2.5MG 3 ML NEBU. NEB ONE (12:30)
--- NOTE | 2019-05-10 12:34 | PHYS DOC ---
Past Medical History Past Medical History: Asthma, Bronchitis, COPD, Hypertension Additional Past Medical Histor: tendonitis, emphysema Past Surgical History: Tonsillectomy, Other Additional Past Surgical Histo: RIGHT ARM Alcohol Use: None Drug Use: None Adult General Chief Complaint Chief Complaint: Congestion HPI HPI Patient is a 58 year old female who presents with headache, loss of appetite, runny nose, cough that started several days ago. The patient also states that she has been having chills and L ear pain. Review of Systems Review of Systems Constitutional: Reports fever or chills Eyes: Denies change in visual acuity, redness, or eye pain [] HENT: Reports nasal congestion, sore throat, and runny nose. Respiratory: Reports cough and mild shortness of breath. Cardiovascular: No additional information not addressed in HPI [] GI: Reports loss of appetite. Denies abdominal pain, bloody stools or diarrhea [] : Denies dysuria or hematuria [] Musculoskeletal: Denies back pain or joint pain [] Integument: Denies rash or skin lesions [] Neurologic: Reports headache, denies focal weakness or sensory changes [] Endocrine: Denies polyuria or polydipsia [] Complete systems were reviewed and found to be within normal limits, except as documented in this note. Current Medications Current Medications Current Medications Medications (Trade) Dose Ordered Sig/Rob Start Time Stop Time Status Last Admin Dose Admin Albuterol/ Ipratropium (Duoneb) 3 ml 1X ONCE 05/10/19 12:30 05/10/19 12:34 DC 05/10/19 12:40 3 ML Dexamethasone (Decadron) 10 mg 1X STAT 05/10/19 12:29 05/10/19 12:34 DC 05/10/19 12:40 10 MG Allergies Allergies Allergies Coded Allergies Type Severity Reaction Last Updated Verified cinnamon Allergy Intermediate 11/10/17 Yes shellfish derived Allergy Intermediate 11/10/17 Yes Physical Exam Physical Exam Constitutional: Well developed, well nourished, no acute distress, non-toxic appearance. [] HENT: Normocephalic, atraumatic, bilateral external ears normal, left tympanic membranes is erythematous and bulging, oropharynx moist, no oral exudates, nose turbinates inflamed. Eyes: PERRLA, EOMI, conjunctiva normal, no discharge. [] Neck: Normal range of motion, no tenderness, supple, no stridor. [] Cardiovascular:Heart rate regular rhythm, no murmur [] Lungs & Thorax: Bilateral breath sounds have mild wheezing in left base. Skin: Warm, dry, no erythema, no rash. [] Neurologic: Alert and oriented X 3, normal motor function, normal sensory function, no focal deficits noted. [] Psychologic: Affect normal, judgement normal, mood normal. [] Current Patient Data Vital Signs Vital Signs Date Time Temp Pulse Resp B/P (MAP) Pulse Ox O2 Delivery O2 Flow Rate FiO2 05/10/19 12:43 96 Room Air 05/10/19 12:29 98.1 106 22 143/64 (90 98.1 Lab Values Laboratory Tests Test 05/10/19 12:30 Influenza Type A Antigen Negative (NEGATIVE) Influenza Type B Antigen Negative (NEGATIVE) EKG EKG [] Radiology/Procedures Radiology/Procedures [][facility] [address] [place] [address] IMAGING REPORT Signed PATIENT: ROSA ADAME ACCOUNT: [id number] : 1960 LOCATION: ER AGE: 58 SEX: F EXAM STATUS: REG ER ORD. PHYSICIAN: DIMITRIOS BLACKMAN APRN REASON: cough, fever PROCEDURE: CHEST PA & LATERAL EXAM: Chest, 2 views. HISTORY: Cough. Fever. COMPARISON: 02/22/2019 FINDINGS: 2 views of the chest are obtained. There is no infiltrate, pleural effusion or pneumothorax. The heart is normal in size. IMPRESSION: No acute pulmonary finding. Electronically signed by: Veena Tran MD (05/10/2019 12:44 PM) [facility] DICTATED and SIGNED BY: VEENA TRAN MD DATE: 05/10/19 6278 Course & Med Decision Making Course & Med Decision Making Pertinent Labs and Imaging studies reviewed. (See chart for details) Will get breathing treatment, Decadron, and will have drink PO fluids. Will also get chest x-ray and will get flu test. Patient has left otitis media. Will place on antibiotic. Chest x-ray is unremarkable, Flu test is negative. Will place on Amoxicillin for Ear infection. Will also prescribe medrol dose pack. Dragon Disclaimer Dragon Disclaimer This electronic medical record was generated, in whole or in part, using a voice recognition dictation system. Departure Departure Impression: Primary Impression: Otitis media Additional Impression: Viral syndrome Disposition: 01 HOME, SELF-CARE Condition: STABLE Referrals: SHARAN SEXTON (PCP) Patient Instructions: Otitis Media, Adult, Viral Syndrome Additional Instructions: Thank you for visiting [facility]. We appreciate you trusting us with your care. If any additional problems come up don't hesitate to return to visit us. Please follow up with your primary care provider so they can plan additional care if needed and know about the problem that you had. If symptoms worsen come back to the Emergency Department. Any concerning symptoms that start such as chest pain, shortness of air, weakness or numbness on one side of the body, running high fevers or any other concerning symptoms return to the ER. You have been prescribed an antibiotic today to help fight your infection. Please take all of the antibiotic as directed. If after 48 hours the infection is not improving, please return for more care. If the infection worsens, return to ER for additional care. Please fill your medications at any pharmacy and follow the prescription instructions. Please take over the counter Zyrtec and Flonase per label instructions for congestion and runny nose. Scripts Methylprednisolone (MEDROL) 4 Mg Tab.ds.pk 1 PKG PO UD, #1 PKG Prov: DIMITRIOS BLACKMAN APRN 05/10/19 Amoxicillin (AMOXICILLIN) 875 Mg Tablet 1 TAB PO BID for 7 Days, #14 TAB Prov: DIMITRIOS BLACKMAN APRN 05/10/19 Problem Qualifiers Primary Impression: Otitis media Otitis media type: suppurative Chronicity: acute Laterality: left Recurrence: not specified as recurrent Spontaneous tympanic membrane rupture: without spontaneous rupture Qualified Codes: H66.002 - Acute suppurative otitis media without spontaneous rupture of ear drum, left ear DIMITRIOS BLACKMAN APRN May 10, 2019 12:34
--- NOTE | 2019-05-10 12:47 | RAD ---
EXAM: Chest, 2 views. HISTORY: Cough. Fever. COMPARISON: 02/22/2019 FINDINGS: 2 views of the chest are obtained. There is no infiltrate, pleural effusion or pneumothorax. The heart is normal in size. IMPRESSION: No acute pulmonary finding. Electronically signed by: Veena Carter MD (05/10/2019 12:44 PM) [facility]
[2019-05-10 13:09] LABS: INFLUENZA A PATIENT NEGATIVE (NEGATIVE); INFLUENZA B PATIENT NEGATIVE (NEGATIVE)
[2019-05-10] MEDS ORDERED: METH4TAB2 PO (13:17)
[2019-05-10] MEDS ORDERED: AMOX875T PO (13:17)
== END 2019-05-10 13:33 | disposition home or self-care (01) ==
LOC: ER 12:12
DX: B34.9 Viral infection, unspecified (principal); H66.002 Acute suppurative otitis media without spontaneous rupture of ear drum, left ear; R09.81 Nasal congestion; R09.89 Other specified symptoms and signs involving the circulatory and respiratory systems; R05 Cough; L53.9 Erythematous condition, unspecified; R63.0 Anorexia; J44.9 Chronic obstructive pulmonary disease, unspecified; I10 Essential (primary) hypertension; Z90.89 Acquired absence of other organs; Z98.890 Other specified postprocedural states; Z91.013 Allergy to seafood; Z91.018 Allergy to other foods
CPT/HCPCS: 71046; 87804; 94640; 99285; J7620; J8540

== ENCOUNTER 2019-06-15 16:23 | Emergency (ER) | payer BC ==
[~2019-06-15] VITALS: Ht 160 cm; Wt 101.8 kg
[~2019-06-15 16:23] MED LIST changes: +AMOX875T PO
[2019-06-15 16:50] VITALS: BP 144/68
[2019-06-15] MEDS ORDERED: predniSONE 10 MG TABLET PO ONE (17:15)
[2019-06-15] MEDS ORDERED: IPRATRPIUM/ALBUTEROL 0.5/2.5MG 3 ML NEBU. NEB ONE (17:15)
--- NOTE | 2019-06-15 17:18 | PHYS DOC ---
Past Medical History Past Medical History: Asthma, Bronchitis, COPD, Hypertension Additional Past Medical Histor: tendonitis, emphysema Past Surgical History: Tonsillectomy, Other Additional Past Surgical Histo: RIGHT ARM Smoking Status: Current Every Day Smoker Alcohol Use: None Drug Use: None Adult General Chief Complaint Chief Complaint: ASTHMA HPI HPI Patient is a 58 year old female who presents with coughing and wheezing for the last 2 days. She was just here on May 10 and diagnosed with otitis media and stated that she took amoxicillin for that. She states she just finished that. Patient states that she's been using her inhaler nebulizer at home. She is or nebulizer at home once today before she went to work. Patient has a history of COPD, bronchitis, asthma, sleep apnea, smokes 3-4 cigarettes a day. Review of Systems Review of Systems Respiratory: cough or shortness of breath [] All other systems were reviewed and found to be within normal limits, except as documented in this note. Current Medications Current Medications Current Medications Medications (Trade) Dose Ordered Sig/Rob Start Time Stop Time Status Last Admin Dose Admin Albuterol/ Ipratropium (Duoneb) 3 ml 1X ONCE 06/15/19 17:15 06/15/19 17:16 DC 06/15/19 17:15 3 ML Prednisone (Prednisone) 50 mg 1X ONCE 06/15/19 17:15 06/15/19 17:16 DC 06/15/19 17:34 50 MG Allergies Allergies Allergies Coded Allergies Type Severity Reaction Last Updated Verified cinnamon Allergy Intermediate 11/10/17 Yes shellfish derived Allergy Intermediate 11/10/17 Yes Physical Exam Physical Exam Constitutional: Well developed, well nourished, no acute distress, non-toxic appearance. [] HENT: Normocephalic, atraumatic, bilateral external ears normal, oropharynx moist, no oral exudates, nose normal. [] Eyes: PERRLA, EOMI, conjunctiva normal, no discharge. [] Neck: Normal range of motion, no tenderness, supple, no stridor. [] Cardiovascular:Heart rate regular rhythm, no murmur [] Lungs & Thorax: Bilateral upper breath sounds expiratory wheezing and left lower lobe wheezing to auscultation [] Abdomen: Bowel sounds normal, soft, no tenderness, no masses, no pulsatile masses. [] Skin: Warm, dry, no erythema, no rash. [] Back: No tenderness, no CVA tenderness. [] Extremities: No tenderness, no cyanosis, no clubbing, ROM intact, no edema. [] Neurologic: Alert and oriented X 3, normal motor function, normal sensory function, no focal deficits noted. [] Psychologic: Affect normal, judgement normal, mood normal. [] Current Patient Data Vital Signs Vital Signs Date Time Temp Pulse Resp B/P (MAP) Pulse Ox O2 Delivery O2 Flow Rate FiO2 06/15/19 17:27 95 Room Air 06/15/19 16:50 98.3 114 18 144/68 (93) 98.3 EKG EKG [] Radiology/Procedures Radiology/Procedures [] Impressions: [facility] [address] [place] [address] IMAGING REPORT Signed PATIENT: ROSA ADAME ACCOUNT: [id number] : 1960 LOCATION: ER AGE: 58 SEX: F EXAM STATUS: REG ER ORD. PHYSICIAN: DOLORES PRAKASH APRN REASON: cough, wheezing PROCEDURE: CHEST PA & LATERAL Exam: Chest 2 views INDICATION: Cough TECHNIQUE: Frontal and lateral views the chest Comparisons: 05/10/2019 FINDINGS: The cardiomediastinal silhouette and pulmonary vessels are within normal limits. The lung and pleural spaces are clear. IMPRESSION: No acute cardiopulmonary process. Electronically signed by: Lore Dunlap MD (06/15/2019 5:46 PM) [id number] DICTATED and SIGNED BY: LORE DUNLAP MD DATE: 06/15/19 1746 Course & Med Decision Making Course & Med Decision Making Pertinent Labs and Imaging studies reviewed. (See chart for details) Ambulatory unsteady gait. Speaks in full clear sentences. Bilateral upper lung lobes expiratory wheezing and left lower lobe has expiratory wheezing. Skin pink warm and dry. Vital signs within normal limits. Patient denies chest pain, nausea, vomiting, abdominal pain, headache, dizziness, numbness or tingling, weakness, visual changes. Patient is given a breathing treatment and prednisone in the ED. chest x-ray shows no acute findings. She states she is feeling much better after the breathing treatment and prednisone. Patients lungs are clear and there is no w heezing heard after breathing treatment. [] Dragon Disclaimer Dragon Disclaimer This electronic medical record was generated, in whole or in part, using a voice recognition dictation system. Departure Departure Impression: Primary Impression: Asthma Disposition: HOME, SELF-CARE Condition: STABLE Referrals: SHARAN SEXTON (PCP) Patient Instructions: Asthma, Adult Additional Instructions: Follow-up with primary care provider. Take medication as prescribed. Use your nebulized breathing treatment every 4 hours. Scripts Prednisone (PREDNISONE) 20 Mg Tablet 1 TAB PO BID, #10 TAB Prov: DOLORES PRAKASH APRN 06/15/19 Problem Qualifiers Primary Impression: Asthma Asthma severity: mild Asthma persistence: intermittent Asthma complication type: uncomplicated Qualified Codes: J45.20 - Mild intermittent asthma, uncomplicated DOLORES PRAKASH [employer]ANSIT SURVEY WORKER Jun 15, 2019 17:18
--- NOTE | 2019-06-15 17:49 | RAD ---
Exam: Chest 2 views INDICATION: Cough TECHNIQUE: Frontal and lateral views the chest Comparisons: 05/10/2019 FINDINGS: The cardiomediastinal silhouette and pulmonary vessels are within normal limits. The lung and pleural spaces are clear. IMPRESSION: No acute cardiopulmonary process. Electronically signed by: Lore Hernandez MD (06/15/2019 5:46 PM) [id number]
[2019-06-15] MEDS ORDERED: PRED20TA PO (17:57)
== END 2019-06-15 18:30 | disposition home or self-care (01) ==
LOC: ER 16:23
DX: J45.20 Mild intermittent asthma, uncomplicated (principal); R05 Cough; J44.9 Chronic obstructive pulmonary disease, unspecified; I10 Essential (primary) hypertension; F17.200 Nicotine dependence, unspecified, uncomplicated; Z90.89 Acquired absence of other organs; Z98.890 Other specified postprocedural states; Z91.013 Allergy to seafood
CPT/HCPCS: 71046; 94640; 99284; J7512; J7620

== ENCOUNTER 2019-09-26 08:39 | Emergency (ER) | payer BC ==
[~2019-09-26] VITALS: Ht 160 cm; Wt 104.5 kg
[2019-09-26 09:00] VITALS: BP 149/86
[2019-09-26] MEDS ORDERED: PENI500T PO (09:37)
[2019-09-26] MEDS ORDERED: HYDR-2163 PO (09:37)
--- NOTE | 2019-09-26 09:50 | PHYS DOC ---
Past Medical History Past Medical History: Asthma, Bronchitis, COPD, Hypertension Additional Past Medical Histor: tendonitis, emphysema, RIA Past Surgical History: Tonsillectomy, Other Additional Past Surgical Histo: RIGHT ARM Smoking Status: Current Every Day Smoker Alcohol Use: None Drug Use: None Adult General Chief Complaint Chief Complaint: DENTAL PROBLEM HPI HPI Patient is a 58 year old with history of asthma and COPD who presents with dental pain. Patient with chronic dental caries who presents with upper and lower incisor erosions with abdominal pain. Symptoms been ongoing for 3 days. Patient unable to see a dentist due to coronavirus pandemic [] Review of Systems Review of Systems ROS as per HPI All other systems were reviewed and found to be within normal limits, except as documented in this note. Allergies Allergies Allergies Coded Allergies Type Severity Reaction Last Updated Verified cinnamon Allergy Intermediate 11/10/17 Yes shellfish derived Allergy Intermediate 11/10/17 Yes Physical Exam Physical Exam Constitutional: Well developed, well nourished, no acute distress, non-toxic appearance. [] HENT: Normocephalic, atraumatic, bilateral external ears normal, dental erosions of upper and lower incisors with gingival swelling, nose normal. [] Eyes: PERRLA, EOMI, conjunctiva normal, no discharge. [] Neck: Normal range of motion, no tenderness, supple, no stridor. [] Neurologic: Alert and oriented X 3, normal motor function, normal sensory function, no focal deficits noted. [] Psychologic: Affect normal, judgement normal, mood normal. [] Current Patient Data Vital Signs Vital Signs Date Time Temp Pulse Resp B/P (MAP) Pulse Ox O2 Delivery O2 Flow Rate FiO2 09/26/19 09:00 98.2 93 20 149/86 (107) 99 Room Air 98.2 EKG EKG [] Radiology/Procedures Radiology/Procedures [] Course & Med Decision Making Course & Med Decision Making Pertinent Labs and Imaging studies reviewed. (See chart for details) [We will treat dental caries with instructions to follow-up with dentist CANDIDO.] Dragon Disclaimer Dragon Disclaimer This electronic medical record was generated, in whole or in part, using a voice recognition dictation system. Departure Departure Impression: Primary Impression: Pain due to dental caries Disposition: HOME, SELF-CARE Condition: GOOD Patient Instructions: Dental Caries-Brief Additional Instructions: Please take newly prescribed medications as directed. Follow up with your dentist as soon as possible. Scripts Penicillin V Potassium (PENICILLIN V POTASSIUM) 500 Mg Tablet 1 TAB PO QID, #40 TAB Prov: MARK JAMES DO 09/26/19 Hydrocodone Bit/Acetaminophen (HYDROCODONE-APAP 5-300) 1 Each Tablet 1 TAB PO PRN TID PRN for pain MDD 3 Tablet(s) for 3 Days, #10 TAB 0 Refills Prov: MARK JAMES DO 09/26/19 MARK JAMES DO September 26, 2019 09:50
== END 2019-09-26 09:50 | disposition home or self-care (01) ==
LOC: ER 08:39
DX: K02.9 Dental caries, unspecified (principal); K03.2 Erosion of teeth; R10.9 Unspecified abdominal pain; J44.9 Chronic obstructive pulmonary disease, unspecified; I10 Essential (primary) hypertension; F17.200 Nicotine dependence, unspecified, uncomplicated; Z90.89 Acquired absence of other organs; Z88.8 Allergy status to other drugs, medicaments and biological substances; Z91.013 Allergy to seafood; Z98.890 Other specified postprocedural states
CPT/HCPCS: 99283

== ENCOUNTER 2020-03-04 07:46 | Emergency (ER) | payer BC ==
[~2020-03-04] VITALS: Ht 160 cm; Wt 105.5 kg
[~2020-03-04 07:46] MED LIST changes: +HYDR-3068 PO; +PENI500T PO
[2020-03-04] MEDS ORDERED: DEXAMETHASONE 4 MG TABLET PO ONE (08:00)
[2020-03-04 08:09] VITALS: BP 156/90
--- NOTE | 2020-03-04 08:46 | RAD ---
Examination: CHEST AP ONLY History: Reason: cough, generalized malaise / Spl. Instructions: / History: Comparison: 06/15/2019. Findings: AP portable upright frontal view of the chest was obtained. The cardiomediastinal silhouette is normal. Lungs are clear. There is no pneumothorax. No pleural effusion is appreciated. No acute bone abnormality. Postoperative findings of the left acromioclavicular joint. IMPRESSION: No acute cardiopulmonary process. Electronically signed by: Marco A Cook MD (03/04/2020 8:43 AM) [id number]
[2020-03-04] MEDS ORDERED: PRED20TA PO (08:56)
--- NOTE | 2020-03-04 08:56 | PHYS DOC ---
Past Medical History Past Medical History: Asthma, Bronchitis, COPD, Hypertension Additional Past Medical Histor: tendonitis, emphysema, RIA Past Surgical History: Tonsillectomy, Other Additional Past Surgical Histo: RIGHT ARM Smoking Status: Current Every Day Smoker Alcohol Use: None Drug Use: None General Adult EDM: Chief Complaint: COUGH HPI: HPI: Patient is a 59 year old female presents with 1 week history of "barking cough", nasal congestion, and subjective fever/chills. Also reports left earache. Denies known exposure to COVID 19. Denies trauma. Denies dysuria. Reports her work sent her to ED because she "looked sick". Reports her work requested her to get a COVID test. Review of Systems: Review of Systems: Constitutional: Reports subjective fever and chills Eyes: Denies change in visual acuity, redness, or eye pain HENT: Reports nasal congestion and left earache Respiratory: Reports cough; denies shortness of breath Cardiovascular: Denies chest pain or palpitations GI: Denies abdominal pain, nausea, vomiting, or diarrhea : Denies dysuria or hematuria Musculoskeletal: Denies back pain or joint pain Integument: Denies rash or skin lesions Neurologic: Denies headache, focal weakness or sensory changes Complete systems were reviewed and found to be within normal limits, except as documented in this note. Current Medications: Current Medications Medications (Trade) Dose Ordered Sig/Rob Start Time Stop Time Status Last Admin Dose Admin Dexamethasone (Decadron) 10 mg 1X ONCE 03/04/20 08:00 03/04/20 08:03 DC 03/04/20 08:21 10 MG Allergies: Allergies: Allergies Coded Allergies Type Severity Reaction Last Updated Verified cinnamon Allergy Intermediate 11/10/17 Yes shellfish derived Allergy Intermediate 11/10/17 Yes Physical Exam: PE: Constitutional: Well developed, well nourished, no acute distress, non-toxic appearance HENT: Normocephalic, atraumatic. nasal passage clear, pharynx clear, TMs clear Eyes: Conjunctiva normal, no discharge Neck: Normal range of motion, no tenderness, supple, no meningeal signs Lungs & Thorax: Equal chest rise and fall, no respiratory distress Abdomen: Soft, no tenderness Skin: Warm, dry, no erythema, no rash Extremities: No tenderness, ROM intact, no edema Neurologic: Alert and oriented X 3, no focal deficits noted Psychologic: Affect normal, judgement normal Current Patient Data: Vital Signs: Vital Signs Date Time Temp Pulse Resp B/P (MAP) Pulse Ox O2 Delivery O2 Flow Rate FiO2 03/04/20 08:09 98.2 98 18 156/90 (112) 97 Room Air 98.2 EKG: EKG: [] Radiology/Procedures: Radiology/Procedures: PROCEDURE: CHEST AP ONLY Examination: CHEST AP ONLY History: Reason: cough, generalized malaise / Spl. Instructions: / History: Comparison: 06/15/2019. Findings: AP portable upright frontal view of the chest was obtained. The cardiomediastinal silhouette is normal. Lungs are clear. There is no pneumothorax. No pleural effusion is appreciated. No acute bone abnormality. Postoperative findings of the left acromioclavicular joint. IMPRESSION: No acute cardiopulmonary process. Electronically signed by: Marco A Cook MD (03/04/2020 8:43 AM) [id number] Course & Med Decision Making: Course & Med Decision Making Pertinent Labs and Imaging studies reviewed. (See chart for details) Patient presents with URI symptoms. COVID testing pending. CXR without acute process. Symptomatic treatment provided. Patient stable for discharge home with outpatient follow-up with PCP. Discussed findings and plan with patient, who acknowledges understanding and agreement. COVID-19 CRITERIA: The patient was evaluated during the global COVID-19 pandemic, and that diagnosis was suspected/considered upon their initial presentation. Their evaluation, treatment and testing was consistent with current guidelines for patients who present with complaints or symptoms that may be related to COVID-19. Dennis Disclaimer: Dennis Disclaimer: This electronic medical record was generated, in whole or in part, using a voice recognition dictation system. Departure Departure Impression: Primary Impression: Upper respiratory infection Qualified Codes: J06.9 - Acute upper respiratory infection, unspecified Additional Impression: Suspected 2019 novel coronavirus infection Disposition: 01 DC HOME SELF CARE/HOMELESS Condition: STABLE Referrals: SHARAN SEXTON (PCP) Patient Instructions: Upper Respiratory Infection, Adult, [id number] Additional Instructions: You have been tested for or diagnosed with COVID-19. It is an infection caused by a new type of coronavirus. COVID-19 will cause cold-like or mild flu symptoms in most. It can cause more severe symptoms like problems breathing in some. There is no treatment for COVID-19. The body will clear the infection over time. Self-care will help to ease discomfort. Steps to Take: Self-Care Rest as needed. Healthy habits may help you feel better. Steps include: Choose healthy foods including fruits and vegetables. Drink water throughout the day. Get plenty of sleep each night. If you smoke, try to quit. It may ease breathing. Avoid alcohol. Keep Others Healthy The virus can spread to others. Droplets are released every time you sneeze or cough. The droplets can get into the mouth, nose, or eyes of people near you and lead to infection. To lower the chances of spreading COVID-19 to others: Stay at home until your doctor has said it is safe to leave. If you tested positive this will mean staying isolated until both of the following are true: At least 7 days have passed since the start of illness. You are free of fever for at least 72 hours without the use of medicine. During this time: - Avoid public areas, events, or transportation. Do not return to work or school until your doctor has said it is safe to do so. - Call ahead if you need to go to a medical center. Let them know you may have COVID-19. It will help them guide you where to go. They may also ask you to wear a facemask when you come to the office. - If you call for emergency medical services, let them know you may have COVID- 19. While at home: - Try to avoid close contact with others. Stay about 6 feet away. - If possible, spend most of your time in a separate room from others. - Use a face mask if you will be in close contact with others such as sharing a room or vehicle. - Have someone wipe down common surfaces in the home. Use household scada technician every day on areas like doorknobs, counters, or sinks. - Cough or sneeze into a tissue. Throw the tissue away right after use. If a tissue is not available, cough or sneeze into your elbow. - Wash your hands often. Wash them after sneezing or coughing. Use soap and water and wash for at least 20 seconds. Alcohol based hand heavy cleaner can be used if soap and water is not available. - Do not prepare food for others. Avoid sharing personal items like forks, spoons, or toothbrushes. - Avoid close contact with pets while you are sick. There is no evidence of the virus passing to pets. This is a safety step until more is known about this virus. Isolation can be frustrating. Social interaction can help. Keep in touch with friends and family through phone and tech options. You can still interact with others in your home, just keep a safe distance of about 6 feet. Follow-up: Your doctors office will check in with you to see if there are any changes in your health. You may be asked to keep track of symptoms to share with them. They will also let you know when you are clear to be in public again. Problems to Look Out For: Contact your doctor if your recovery is not going as you expect. Get emergency care if you have problems such as: - Trouble breathing - Nonstop chest pain or pressure - Changes in awareness, confusion, or problems waking - Lips or face have bluish color - Worsening of symptoms If you think you have an emergency, call for emergency medical services right away. As taken from [facility] Scripts Azithromycin (ZITHROMAX) 250 Mg Tablet 1 PKG PO UD for bronchitis, #6 TAB Take 2 tablets on day 1 and then 1 tablet each day for the next 4 days as directed Prov: DIMITRIOS PETER DO 03/04/20 Prednisone (PREDNISONE) 20 Mg Tablet 2 TAB PO DAILY, #8 TAB Start this prescription tomorrow, Tuesday03/05/2020 Prov: DIMITRIOS PETER DO 03/04/20 COVID-19 Assessment: COVID-19 Patient Risks: Age 65 or older: No Sign of co-morbidity: Yes Exp to person + for COVID: No Exp to PUI: No Travel from affected area: No Lower respiratory symptoms: Yes Fever: Yes PPE Use: Full PPE with N95 mask or PAPR: Yes DIMITRIOS PETER DO Mar 04, 2020 08:56
[2020-03-04] MEDS ORDERED: AZIT250T PO (09:08)
--- NOTE | 2020-03-05 13:52 | NUR ---
IP: Informed pt of negative COVID test. pt verbalized understanding.
== END 2020-03-04 09:35 | disposition home or self-care (01) ==
LOC: ER 07:46
DX: J06.9 Acute upper respiratory infection, unspecified (principal); Z20.828 Contact with and (suspected) exposure to other viral communicable diseases; H92.02 Otalgia, left ear; J44.9 Chronic obstructive pulmonary disease, unspecified; I10 Essential (primary) hypertension; F17.200 Nicotine dependence, unspecified, uncomplicated; Z91.013 Allergy to seafood; Z91.018 Allergy to other foods
CPT/HCPCS: 71045; 99284; C9803; U0003

== ENCOUNTER 2020-09-01 14:17 | Emergency (ER) | payer OTHER, BC ==
[~2020-09-01] VITALS: Ht 160 cm; Wt 102.3 kg
[~2020-09-01 14:17] MED LIST changes: -CLIN150C14 PO; +CLIN150C15 PO; -CLIN300C8 PO; +CLIN300C9 PO
[2020-09-01 15:20] VITALS: BP 160/83
[2020-09-01] MEDS ORDERED: NAPROXEN 500 MG TABLET PO STA (15:43)
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
[2020-09-01] MEDS ORDERED: CYCL10TA2 PO (16:41)
[2020-09-01] MEDS ORDERED: NAPR-514 PO (16:41)
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
== END 2020-09-01 17:06 | disposition home or self-care (01) ==
LOC: ER 14:17
DX: G89.11 Acute pain due to trauma (principal); M25.511 Pain in right shoulder; M54.5 Low back pain; J44.9 Chronic obstructive pulmonary disease, unspecified; I10 Essential (primary) hypertension; G89.29 Other chronic pain; F17.200 Nicotine dependence, unspecified, uncomplicated; Z90.89 Acquired absence of other organs; Z98.890 Other specified postprocedural states; Z91.013 Allergy to seafood; Z88.8 Allergy status to other drugs, medicaments and biological substances; V98.8XXA Other specified transport accidents, initial encounter; Y93.89 Activity, other specified; Y92.89 Other specified places as the place of occurrence of the external cause; Y99.8 Other external cause status
CPT/HCPCS: 72131; 99284

== ENCOUNTER 2021-02-18 11:30 | Emergency (ER) | payer BC, OTHER ==
[~2021-02-18] VITALS: Ht 160 cm; Wt 91.0 kg
[~2021-02-18 11:30] MED LIST changes: +CLIN-94 PO; -CLIN150C15 PO; +CLIN150C16 PO; -CLIN300C9 PO; +NAPR-514 PO
--- NOTE | 2021-02-18 12:45 | RAD ---
XR CHEST 1V CLINICAL INDICATIONS: Reason: cough for 3 days / Spl. Instructions: / History: COMPARISON: March 04, 2020. Findings: No acute lung infiltrate or pleural effusion or pulmonary edema or lung mass or pneumothora x is seen. The heart size, pulmonary vasculature, mediastinum and both santino are unremarkable. IMPRESSION: No acute radiographic abnormality is seen. Electronically signed by: Jose Downey MD (02/18/2021 12:42 PM) [id number]
[2021-02-18 12:55] VITALS: BP 124/69
[2021-02-18] MEDS ORDERED: ALBU2.5V8 IH (12:57)
[2021-02-18] MEDS ORDERED: AZIT250T PO (12:57)
[2021-02-18] MEDS ORDERED: PRED20TA PO (12:57)
--- NOTE | 2021-02-18 12:58 | PHYS DOC ---
Past Medical History Past Medical History: Asthma, Bronchitis, COPD, Hypertension Additional Past Medical Histor: tendonitis, emphysema, RIA, chronic back pain Past Surgical History: Tonsillectomy, Other Additional Past Surgical Histo: RIGHT ARM Smoking Status: Current Every Day Smoker Additional Information: 0.25ppd Alcohol Use: None Drug Use: None General Adult EDM: Chief Complaint: COUGH HPI: HPI: Patient is a 60 year old female who has COPD, smoker, presented to ER with productive cough with clear sputum for the last 3 days. Patient was fully vaccinated for COVID-19. Patient denies any chest pain, no abdominal pain, no trouble breathing. Patient denies any fever. Patient says she feels like her bronchitis is flaring up again. Review of Systems: Review of Systems: Constitutional: Denies fever or chills. [] Eyes: Denies change in visual acuity. [] HENT: Denies nasal congestion or sore throat. [] Respiratory: Positive for cough, no trouble breathing Cardiovascular: Denies chest pain or edema. [] GI: Denies abdominal pain, nausea, vomiting, bloody stools or diarrhea. [] : Denies dysuria. [] Musculoskeletal: Denies back pain or joint pain. [] Integument: Denies rash. [] Neurologic: Denies headache, focal weakness or sensory changes. [] Endocrine: Denies polyuria or polydipsia. [] Lymphatic: Denies swollen glands. [] Psychiatric: Denies depression or anxiety. [] Heart Score: C/O Chest Pain: N/A Risk Factors: Risk Factors: DM, Current or recent (<one month) smoker, HTN, HLP, family history of CAD, obesity. Risk Scores: Score 0 - 3: 2.5% MACE over next 6 weeks - Discharge Home Score 4 - 6: 20.3% MACE over next 6 weeks - Admit for Clinical Observation Score 7 - 10: 72.7% MACE over next 6 weeks - Early Invasive Strategies Allergies: Allergies: Allergies Coded Allergies Type Severity Reaction Last Updated Verified cinnamon Allergy Intermediate 11/10/17 Yes shellfish derived Allergy Intermediate 11/10/17 Yes Physical Exam: PE: Constitutional: Well developed, well nourished, no acute distress, non-toxic appearance. [] HENT: Normocephalic, atraumatic, bilateral external ears normal, oropharynx moist, no oral exudates, nose normal. [] Eyes: PERRLA, EOMI, conjunctiva normal, no discharge. [] Neck: Normal range of motion, no tenderness, supple, no stridor. [] Cardiovascular:Heart rate regular rhythm, no murmur [] Lungs & Thorax: Bilateral breath sounds clear to auscultation [] Abdomen: Bowel sounds normal, soft, no tenderness, no masses, no pulsatile masses. [] Skin: Warm, dry, no erythema, no rash. [] Back: No tenderness, no CVA tenderness. [] Extremities: No tenderness, no cyanosis, no clubbing, ROM intact, no edema. [] Neurologic: Alert and oriented X 3, normal motor function, normal sensory function, no focal deficits noted. [] Psychologic: Affect normal, judgement normal, mood normal. [] Current Patient Data: Vital Signs: Vital Signs Date Time Temp Pulse Resp B/P (MAP) Pulse Ox O2 Delivery O2 Flow Rate FiO2 02/18/21 12:03 98.3 104 16 139/80 (99) 98 Room Air 98.3 EKG: EKG: [] Radiology/Procedures: Radiology/Procedures: [][facility] [address] [place] [address] IMAGING REPORT Signed PATIENT: ROSA ADAME ACCOUNT: [id number] : 1960 LOCATION: ER AGE: 60 SEX: F EXAM STATUS: PRE ER ORD. PHYSICIAN: RAFFI ALVAREZ DO REASON: cough for 3 days PROCEDURE: CHEST AP ONLY XR CHEST 1V CLINICAL INDICATIONS: Reason: cough for 3 days / Spl. Instructions: / History: COMPARISON: March 04, 2020. Findings: No acute lung infiltrate or pleural effusion or pulmonary edema or lung mass or pneumothorax is seen. The heart size, pulmonary vasculature, mediastinum and both santino are unremarkable. IMPRESSION: No acute radiographic abnormality is seen. Electronically signed by: Avel Downey MD (02/18/2021 12:42 PM) [id number] DICTATED and SIGNED BY: AVEL DOWNEY MD DATE: 02/18/21 [id number] 0 Course & Med Decision Making: Course & Med Decision Making Pertinent Labs and Imaging studies reviewed. (See chart for details) Patient is a 60-year-old female who present to ER due to cough for the last 3 days. Patient has COPD, she is a smoker. Her oxygen saturation is 100% on room air. Patient chest x-ray did not show any infiltration. Patient be discharged home with bronchitis with steroids, albuterol inhaler, Zithromax. Dragon Disclaimer: Dragon Disclaimer: This electronic medical record was generated, in whole or in part, using a voice recognition dictation system. Departure Departure Impression: Primary Impression: Bronchitis Disposition: HOME / SELF CARE / HOMELESS Condition: STABLE Referrals: SHARAN SEXTON (PCP) Follow up with your doctor this week Patient Instructions: Acute Bronchitis Additional Instructions: Thank you for visiting our Emergency Department. We appreciate you trusting us with your care. If any additional problems come up don't hesitate to return to visit us. Please follow up with your primary care provider so they can plan additional care if needed and know about the problem that you had. If symptoms worsen come back to the Emergency Department. Any concerning symptoms that start such as chest pain, shortness of air, weakness or numbness on one side of the body, running high fevers or any other concerning symptoms return to the ER. Scripts Azithromycin (ZITHROMAX) 250 Mg Tablet 1 PKG PO UD, #6 TAB Prov: RAFFI ALVAREZ DO 02/18/21 Albuterol Sulfate (PROAIR HFA INHALER) 8.5 Gm Hfa.aer.ad 2 PUFF IH PRN Q4-6HRS PRN for wheezing for 21 Days, #1 INHALER 0 Refills Prov: RAFFI ALVAREZ DO 02/18/21 Prednisone (PREDNISONE) 20 Mg Tablet 2 TAB PO DAILY for 7 Days, #14 TAB Prov: RAFFI ALVAREZ DO 02/18/21 RAFFI ALVAREZ DO Feb 18, 2021 12:57
== END 2021-02-18 13:02 | disposition home or self-care (01) ==
LOC: ER 11:30
DX: J44.9 Chronic obstructive pulmonary disease, unspecified (principal); I10 Essential (primary) hypertension; G89.29 Other chronic pain; F17.200 Nicotine dependence, unspecified, uncomplicated; Z91.013 Allergy to seafood; Z88.8 Allergy status to other drugs, medicaments and biological substances
CPT/HCPCS: 71045; 99283

== ENCOUNTER 2021-03-07 11:30 | Emergency (ER) | payer BC ==
[~2021-03-07] VITALS: Ht 160 cm; Wt 95.8 kg
[~2021-03-07 11:30] MED LIST changes: +CYCL10TA19 PO; -CYCL10TA2 PO
[2021-03-07 12:27] LABS: BILIRUBIN,URINE NEGATIVE (NEG); CLARITY,URINE CLEAR; COLOR,URINE YELLOW; NITRITE,URINE NEGATIVE (NEG); PROTEIN,URINE NEGATIVE (NEG-TRACE); UROBILINOGEN,URINE 0.2 mg/dL (0.2 mg/dL)
--- NOTE | 2021-03-07 12:39 | RAD ---
EXAM: Chest, single view. HISTORY: Vomiting. COMPARISON: 02/18/2021 FINDINGS: A frontal view of the chest is obtained. There is no infiltrate, pleural effusion or pneumo thorax. The heart is normal in size. IMPRESSION: No acute pulmonary finding. Electronically signed by: Veena Carter MD (03/07/2021 12:36 PM) [id number]
[2021-03-07 12:41] LABS: BACTERIA,URINE FEW /HPF (0-FEW); RBC,URINE OCC /HPF (0-2)
--- NOTE | 2021-03-07 12:45 | PHYS DOC ---
Past Medical History Past Medical History: Asthma, Bronchitis, COPD, Hypertension Additional Past Medical Histor: tendonitis, emphysema, RIA, chronic back pain, emphysema Past Surgical History: Tonsillectomy, Other Additional Past Surgical Histo: RIGHT ARM Smoking Status: Current Every Day Smoker Alcohol Use: None Drug Use: None General Adult EDM: Chief Complaint: NAUSEA/VOMITING/DIARRHEA HPI: HPI: Patient is a 60 year old female who presents with this morning started having nausea and vomiting. It is since stopped. She denies abdominal pain, diarrhea, constipation, fever, cough, shortness of breath, chest pain, headache, dizziness, chills, body aches, back pain, focal weakness, numbness or tingling. She is also concerned because Covid is going around work and is wanting a Covid test. She is vaccinated for Covid. Patient has a history of COPD, asthma, tendinitis, RIA, hypertension, tonsillectomy and is smoking. Review of Systems: Review of Systems: Constitutional: Denies fever or chills. [] Eyes: Denies change in visual acuity. [] HENT: Denies nasal congestion or sore throat. [] Respiratory: Denies cough or shortness of breath. [] Cardiovascular: Denies chest pain or edema. [] GI: Denies abdominal pain, +nausea, +vomiting, denies bloody stools or diarrhea. [] : Denies dysuria. [] Musculoskeletal: Denies back pain or joint pain. [] Integument: Denies rash. [] Neurologic: Denies headache, focal weakness or sensory changes. [] Endocrine: Denies polyuria or polydipsia. [] Lymphatic: Denies swollen glands. [] Psychiatric: Denies depression or anxiety. [] Heart Score: C/O Chest Pain: No Allergies: Allergies: Allergies Coded Allergies Type Severity Reaction Last Updated Verified cinnamon Allergy Intermediate 11/10/17 Yes shellfish derived Allergy Intermediate 11/10/17 Yes Physical Exam: PE: Constitutional: Well developed, well nourished, no acute distress, non-toxic appearance. [] HENT: Normocephalic, atraumatic, bilateral external ears normal, oropharynx moist, no oral exudates, nose normal. [] Eyes: PERRLA, EOMI, conjunctiva normal, no discharge. [] Neck: Normal range of motion, no tenderness, supple, no stridor. [] Cardiovascular:Heart rate regular rhythm, no murmur [] Lungs & Thorax: Bilateral breath sounds clear to auscultation [] Abdomen: Bowel sounds normal, soft, no tenderness, no masses, no pulsatile masses. [] Skin: Warm, dry, no erythema, no rash. [] Back: No tenderness, no CVA tenderness. [] Extremities: No tenderness, no cyanosis, no clubbing, ROM intact, no edema. [] Neurologic: Alert and oriented X 3, normal motor function, normal sensory function, no focal deficits noted. [] Psychologic: Affect normal, judgement normal, mood normal. [] Normal physical exam Current Patient Data: Vital Signs: Vital Signs Date Time Temp Pulse Resp B/P (MAP) Pulse Ox O2 Delivery O2 Flow Rate FiO2 03/07/21 12:32 98.5 89 16 163/83 (109) 100 Room Air 98.5 EKG: EKG: [] Radiology/Procedures: Radiology/Procedures: [] Impression: [facility] [address] [place] [address] IMAGING REPORT Signed PATIENT: ROSA ADAME ACCOUNT: [id number] : 1960 LOCATION: ER AGE: 60 SEX: F EXAM STATUS: PRE ER ORD. PHYSICIAN: DOLORES PRAKASH APRN REASON: vomiting PROCEDURE: PORTABLE CHEST 1V EXAM: Chest, single view. HISTORY: Vomiting. COMPARISON: 02/18/2021 FINDINGS: A frontal view of the chest is obtained. There is no infiltrate, pleural effusion or pneumothorax. The heart is normal in size. IMPRESSION: No acute pulmonary finding. Electronically signed by: Veena Tran MD (03/07/2021 12:36 PM) [id number] DICTATED and SIGNED BY: VEENA TRAN MD DATE: 03/07/21 [id number] 0 Course & Med Decision Making: Course & Med Decision Making Pertinent Labs and Imaging studies reviewed. (See chart for details) See HPI. Alert and oriented x4. Ambulatory steady gait. Speaks in full clear sentences. Skin pink warm and dry. Abdomen soft and nontender. No CVA tenderness. Mucous membranes moist. Lungs are clear in upper lobes and diminished in lower lobes. Patient is positive for the flu but negative for Covid. She also has UTI. Patient is tolerating fluid. Patient discharged. [] Jameson Disclaimer: Dennis Disclaimer: This electronic medical record was generated, in whole or in part, using a voice recognition dictation system. Departure Departure Impression: Primary Impression: Influenza B Additional Impression: UTI (urinary tract infection) Qualified Codes: N39.0 - Urinary tract infection, site not specified Disposition: HOME / SELF CARE / HOMELESS Condition: STABLE Referrals: SHARAN SEXTON (PCP) Patient Instructions: Influenza, Adult, Urinary Tract Infection Additional Instructions: Follow-up with primary care provider. Drink plenty of fluids. Take Tylenol or ibuprofen to help with any symptoms. Stay hydrated. Scripts Ondansetron (ONDANSETRON ODT) 4 Mg Tab.rapdis 1 TAB PO PRN Q6-8HRS, #16 TAB Prov: DOLORES PRAKASH CHRO 03/07/21 Cephalexin (KEFLEX) 500 Mg Capsule 1 CAP PO BID for 7 Days, #14 CAP Prov: DOLORES PRAKASH CHRO 03/07/21 DOLORES PRAKASH APRN Mar 07, 2021 12:45
[2021-03-07 13:54] LABS: INFLUENZA A PATIENT NEGATIVE (NEGATIVE)
[2021-03-07 13:55] LABS: INFLUENZA B PATIENT POSITIVE (NEGATIVE)
[2021-03-07 13:57] LABS: BASO # 0.1 x10^3/uL (0.0-0.2); BASO % 2 % (0-3); EOS # 0.1 x10^3/uL (0.0-0.7); EOS % 2 % (0-3); HEMATOCRIT 40.6 % (36.0-47.0); LYMPH # 1.6 x10^3/uL (1.0-4.8); LYMPH % 18 % (24-48); MEAN CORPUSCULAR HEMOGLOBIN 33 pg (25-35); MEAN CORPUSCULAR HGB CONC 35 g/dL (31-37); MEAN CORPUSCULAR VOLUME 94 fL (79-100); MONO # 0.6 x10^3/uL (0.0-1.1); MONO % 7 % (0-9); NEUT # 6.5 x10^3/uL (1.8-7.7); NEUT % 72 % (31-73); PLATELET COUNT 386 x10^3/uL (140-400); RED BLOOD COUNT 4.32 x10^6/uL (3.50-5.40); WHITE BLOOD COUNT 9.1 x10^3/uL (4.0-11.0)
[2021-03-07 14:09] LABS: CREATININE 0.6 mg/dL (0.6-1.0); GFR 122.6; POTASSIUM 3.8 mmol/L (3.5-5.1)
[2021-03-07 14:15] LABS: ALBUMIN 3.1 g/dL (3.4-5.0); ALBUMIN/GLOBULIN RATIO 0.7 (1.0-1.7); TOTAL BILIRUBIN 0.3 mg/dL (0.2-1.0); TOTAL PROTEIN 7.3 g/dL (6.4-8.2)
[2021-03-07 14:36] VITALS: BP 127/65
[2021-03-07] MEDS ORDERED: CEPH500C PO (14:37)
[2021-03-07] MEDS ORDERED: ONDA4TAB12 PO (14:37)
--- NOTE | 2021-03-09 11:13 | NUR ---
IP: Attempted to contact t concerning covid results. Phone number provided is not a working number.
== END 2021-03-07 15:03 | disposition home or self-care (01) ==
LOC: ER 11:30
DX: J10.1 Influenza due to other identified influenza virus with other respiratory manifestations (principal); Z20.822 Contact with and (suspected) exposure to COVID-19; N39.0 Urinary tract infection, site not specified; J44.9 Chronic obstructive pulmonary disease, unspecified; I10 Essential (primary) hypertension; G89.29 Other chronic pain; F17.200 Nicotine dependence, unspecified, uncomplicated; Z91.013 Allergy to seafood; Z91.018 Allergy to other foods
CPT/HCPCS: 36415; 71045; 80053; 81001; 83690; 85025; 87086; 87426; 87804; 99284; U0003; U0005

== ENCOUNTER 2021-06-02 20:31 | Emergency (ER) | payer OTHER, BC ==
[~2021-06-02] VITALS: Ht 160 cm; Wt 97.0 kg
[~2021-06-02 20:31] MED LIST changes: +CEPH500C PO; +ONDA4TAB12 PO
[2021-06-03] MEDS ORDERED: ACETAMINOPHEN 500 MG TABLET PO ONE (00:45)
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
[2021-06-03 02:08] VITALS: BP 142/78
[2021-06-03] MEDS ORDERED: IBUP-1060 PO (02:33)
[2021-06-03] MEDS ORDERED: CYCL10TA19 PO (02:33)
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
== END 2021-06-03 02:47 | disposition home or self-care (01) ==
LOC: ER 20:31
DX: S13.4XXA Sprain of ligaments of cervical spine, initial encounter (principal); M54.50 Low back pain, unspecified; J44.9 Chronic obstructive pulmonary disease, unspecified; I10 Essential (primary) hypertension; G89.29 Other chronic pain; F17.200 Nicotine dependence, unspecified, uncomplicated; V49.49XA Driver injured in collision with other motor vehicles in traffic accident, initial encounter; Y92.488 Other paved roadways as the place of occurrence of the external cause; Y93.89 Activity, other specified; Y99.8 Other external cause status; Z91.013 Allergy to seafood; Z91.018 Allergy to other foods
CPT/HCPCS: 72040; 72100; 99284